=== PATIENT | male | born 1975 | race Caucasian/White ===

== ENCOUNTER 2020-08-08 20:29 | Inpatient (IN) | payer BC ==
[~2020-08-08] VITALS: Ht 175.3 cm; Wt 108.7 kg
[~2020-08-08 20:29] MED LIST: AMIO200T6 PO; ATOR40TA PO; METO25TA4 PO; NICO1PAT25 TP; RIVA20TA2 PO; TICA90TA PO
[2020-08-08 20:53] LABS: BASO # 0.1 x10^3/uL (0.0-0.2); BASO % 1 % (0-3); EOS # 0.2 x10^3/uL (0.0-0.7); EOS % 2 % (0-3); HEMOGLOBIN 15.9 g/dL (13.0-17.5); LYMPH # 2.6 x10^3/uL (1.0-4.8); LYMPH % 25 % (24-48); MEAN CORPUSCULAR HEMOGLOBIN 31 pg (25-35); MEAN CORPUSCULAR HGB CONC 35 g/dL (31-37); MEAN CORPUSCULAR VOLUME 88 fL (79-100); MONO # 0.8 x10^3/uL (0.0-1.1); MONO % 8 % (0-9); NEUT # 6.8 x10^3/uL (1.8-7.7); NEUT % 65 % (31-73); PLATELET COUNT 253 x10^3/uL (140-400); RED BLOOD COUNT 5.21 x10^6/uL (4.30-5.70); RED CELL DISTRIBUTION WIDTH 14.8 % (11.5-14.5); WHITE BLOOD COUNT 10.5 x10^3/uL (4.0-11.0)
[2020-08-08] MEDS ORDERED: ASPIRIN 325 MG TABLET PO ONE (21:00)
[2020-08-08] MEDS ORDERED: IV NORMAL SALINE 1000ML BAG 1,000 ML IV ONE (21:00)
[2020-08-08 21:01] LABS: PROTHROMBIN TIME PATIENT 26.4 SEC (11.7-14.0)
[2020-08-08 21:06] LABS: CALCIUM 9.2 mg/dL (8.5-10.1); CREATININE 1.2 mg/dL (0.7-1.3); GFR 64.9; POTASSIUM 3.7 mmol/L (3.5-5.1)
[2020-08-08 21:12] LABS: ALBUMIN 3.5 g/dL (3.4-5.0); ALBUMIN/GLOBULIN RATIO 0.9 (1.0-1.7); TOTAL BILIRUBIN 0.3 mg/dL (0.2-1.0); TOTAL PROTEIN 7.5 g/dL (6.4-8.2)
[2020-08-08 21:18] LABS: D-DIMER 1.63 ug/mlFEU (0.00-0.50)
[2020-08-08] MEDS ORDERED: IOHEXOL 350 MG/ML 100 ML VIAL. IV ONE (21:30)
[2020-08-08] MEDS ORDERED: CONTRAST GIVEN. MC PRN (21:30)
--- NOTE | 2020-08-08 21:50 | PHYS DOC ---
Past Medical History Past Medical History: CAD, High Cholesterol, Hypertension Additional Past Medical Histor: STENT, ANGIO Past Surgical History: Angioplasty Smoking Status: Current Every Day Smoker (5-6 cigarettes/day) Alcohol Use: None Drug Use: None General Adult EDM: Chief Complaint: CHEST PAIN HPI: HPI: Patient is a 45 year old white Male who presents with chest pain. He has a history of OR with angioplasty on 07/13 and stent placement on 07/17. This began today at 1900h. Chest pain is described as sharp, constant and 5/10 that occurred at rest. Patient admits to radiation of pain to right side of his chest. Location of pain is at midclavicular, 5th intercostal space. Patient has experienced intermittent shortness of breath from this episode without any clear aggravation. He went to the urgent care at 1930 and received an EKG and sent to ED. He did not take any medications at this time and denies any aggravating factors. He states he had a similar pain on night/Friday morning and was not seen as he attributed to gas. He is seen with his mother who is also his ride. Denies trauma. Denies fever/chills. Denies trauma. Review of Systems: Review of Systems: Constitutional: Denies fever or chills Eyes: Denies redness or eye pain HENT: Admits nasal congestion. Denies sore throat Respiratory: Admits shortness of breath. Denies cough Cardiovascular: Admits chest pain. Denies palpitations GI: Denies abdominal pain, nausea, or vomiting : Denies dysuria or hematuria Musculoskeletal: Denies back pain or joint pain Integument: Denies rash or skin lesions Neurologic: Denies headache, focal weakness or sensory changes Complete systems were reviewed and found to be within normal limits, except as documented in this note. Heart Score: HEART Score for Chest Pain: HEART Score for Chest Pain Response (Comments) Value History Moderately Suspicious 1 ECG Normal 0 Age >45 - < 65 1 Risk Factors >3 Risk Factors or Hx CAD 2 Troponin < Normal Limit 0 Total 4 Risk Factors: Risk Factors: Current or recent (<one month) smoker, HTN, HLP, family history of CAD, obesity. Risk Scores: Score 0 - 3: 2.5% MACE over next 6 weeks - Discharge Home Score 4 - 6: 20.3% MACE over next 6 weeks - Admit for Clinical Observation Score 7 - 10: 72.7% MACE over next 6 weeks - Early Invasive Strategies Current Medications: Current Medications Medications (Trade) Dose Ordered Sig/Delvis Start Time Stop Time Status Last Admin Dose Admin Aspirin (Corrine Aspirin) 325 mg 1X ONCE 08/08/20 21:00 08/08/20 21:01 DC 08/08/20 20:57 325 MG Info (CONTRAST GIVEN -- Rx MONITORING) 1 each PRN DAILY PRN 08/08/20 21:30 08/10/20 21:29 Iohexol (Omnipaque 350 Mg/ml) 100 ml 1X ONCE 08/08/20 21:30 08/08/20 21:31 DC Sodium Chloride 1,000 ml @ 1,000 mls/hr 1X ONCE 08/08/20 21:00 08/08/20 21:59 08/08/20 20:57 1,000 MLS/HR Allergies: Allergies: Allergies Coded Allergies Type Severity Reaction Last Updated Verified Penicillins Allergy Intermediate hives/rash/swelling 07/13/20 Yes Physical Exam: PE: Constitutional: Well developed, well nourished, no acute distress, non-toxic appearance HENT: Normocephalic, atraumatic Eyes: PERRL, EOMI, conjunctiva normal, no discharge Neck: Normal range of motion, no tenderness, supple Lungs & Thorax: No respiratory distress, equal chest rise and fall Abdomen: Soft, no tenderness Skin: Warm, dry, no erythema, no rash Back: No tenderness, no CVA tenderness Extremities: No tenderness, ROM intact, no edema Neurologic: Alert and oriented X 3, normal motor function, normal sensory function, no focal deficits noted Psychologic: Affect normal, judgment normal Current Patient Data: Labs: Laboratory Tests Test 08/08/20 20:44 White Blood Count 10.5 x10^3/uL (4.0-11.0) Red Blood Count 5.21 x10^6/uL (4.30-5.70) Hemoglobin 15.9 g/dL (13.0-17.5) Hematocrit 46.0 % (39.0-53.0) Mean Corpuscular Volume 88 fL (79-100) Mean Corpuscular Hemoglobin 31 pg (25-35) Mean Corpuscular Hemoglobin Concent 35 g/dL (31-37) Red Cell Distribution Width 14.8 % (11.5-14.5) H Platelet Count 253 x10^3/uL (140-400) Neutrophils (%) (Auto) 65 % (31-73) Lymphocytes (%) (Auto) 25 % (24-48) Monocytes (%) (Auto) 8 % (0-9) Eosinophils (%) (Auto) 2 % (0-3) Basophils (%) (Auto) 1 % (0-3) Neutrophils # (Auto) 6.8 x10^3/uL (1.8-7.7) Lymphocytes # (Auto) 2.6 x10^3/uL (1.0-4.8) Monocytes # (Auto) 0.8 x10^3/uL (0.0-1.1) Eosinophils # (Auto) 0.2 x10^3/uL (0.0-0.7) Basophils # (Auto) 0.1 x10^3/uL (0.0-0.2) Prothrombin Time 26.4 SEC (11.7-14.0) H Prothrombin Time INR 2.4 (0.8-1.1) H Activated Partial Thromboplast Time 48 SEC (24-38) H D-Dimer (Dina) 1.63 ug/mlFEU (0.00-0.50) H Sodium Level 140 mmol/L (136-145) Potassium Level 3.7 mmol/L (3.5-5.1) Chloride Level 104 mmol/L (98-107) Carbon Dioxide Level 26 mmol/L (21-32) Anion Gap 10 (6-14) Blood Urea Nitrogen 15 mg/dL (8-26) Creatinine 1.2 mg/dL (0.7-1.3) Estimated GFR (Cockcroft-Gault) 64.9 BUN/Creatinine Ratio 13 (6-20) Glucose Level 121 mg/dL (70-99) H Calcium Level 9.2 mg/dL (8.5-10.1) Magnesium Level 2.0 mg/dL (1.8-2.4) Total Bilirubin 0.3 mg/dL (0.2-1.0) Aspartate Amino Transferase (AST) 25 U/L (15-37) Alanine Aminotransferase (ALT) 54 U/L (16-63) Alkaline Phosphatase 44 U/L (46-116) L Troponin I Quantitative < 0.017 ng/mL (0.000-0.055) RB-[id number]-[id number]-Type Natriuretic Peptide 894 pg/mL (0-124) H Total Protein 7.5 g/dL (6.4-8.2) Albumin 3.5 g/dL (3.4-5.0) Albumin/Globulin Ratio 0.9 (1.0-1.7) L Lipase 64 U/L (73-393) L Laboratory Tests 08/08/20 20:44 Laboratory Tests 08/08/20 20:44 Vital Signs: Vital Signs Date Time Temp Pulse Resp B/P (MAP) Pulse Ox O2 Delivery O2 Flow Rate FiO2 08/08/20 20:40 98.4 98 149/110 (123) 97 98.4 EKG: EKG: HR 96BPM Intervals - WV 164ms, QRS 88ms, QT 348ms Interpretation: Sinus rhythm, QRS(T) contour abnormality, consistent with inferior infarct, age undetermined Radiology/Procedures: Radiology/Procedures: PROCEDURE: CT ANGIOGRAPHY CHEST Exam: CT of chest with contrast INDICATION: Chest pain TECHNIQUE: Sequential axial images through the chest obtained following the administration of 100 mL of Omni 350 IV contrast. Sagittal and coronal reformatted images were reconstructed from the axial data and reviewed. 3-D reformatted images were reconstructed from the axial data and reviewed. Comparisons: None FINDINGS: Visualized portions of the thyroid are unremarkable. No enlarged mediastinal lymph nodes are identified. Heart size is normal. No pericardial effusion. Thoracic aorta has a normal course and caliber. Pulmonary artery is not enlarged. No pulmonary embolus identified within the main, lobar or segmental pulmonary arteries. Airways are patent. No consolidation or pneumothorax. No suspicious lung nodules. No pleural or thickening. No suspicious osseous lesions or acute fractures. IMPRESSION: No pulmonary embolus identified within the main, lobar or segmental pulmonary arteries. Exposure: One or more of the following in the visualized dose reduction techniques were utilized for this examination: 1. Automated exposure control 2. Adjustment of the MA and/or KV according to patient size 3. Use of iterative of reconstructive technique Electronically signed by: Yamile Ocasio MD (08/08/2020 10:36 PM) [facility] Course & Med Decision Making: Course & Med Decision Making Mr. Weller is a 45yo white male who presents with chest pain. Pain began at 1900. Patient describes pain as sharp, constant and 5/10. Pain is located on left chest with radiation into his right chest. He went to urgent care who sent him to the ED. He did not take any medications and complains of SOB that is i ntermittent. Physical exam was unremarkable. EKG was unremarkable. Labs did not show any elevation in initial troponin. CT angiography did not find any evidence of pulmonary emoblus. Patient was treated with ondansetron, fluids, fentanyl and aspirin. Vitals are stable. HEART score 4. Patient requiring admission for further evaluation and treatment. Discussed with Dr. Roberson (hospitalist) who is in agreement with admission. Discussed findings and plan with patient, who acknowledges understanding and agreement. David Disclaimer: David Disclaimer: This electronic medical record was generated, in whole or in part, using a voice recognition dictation system. Departure Departure Impression: Primary Impression: Chest pain Qualified Codes: R07.9 - Chest pain, unspecified Disposition: ADMITTED INPT THIS HOSP Admitting Physician: SANFORD (Da) Condition: STABLE Referrals: LADY FERNANDES (PCP) LAURA LOMELI DO Aug 08, 2020 21:50
[2020-08-08 22:32] LABS: BILIRUBIN,URINE NEGATIVE (NEG); CLARITY,URINE CLEAR; COLOR,URINE YELLOW; NITRITE,URINE NEGATIVE (NEG); PROTEIN,URINE NEGATIVE (NEG-TRACE)
[2020-08-08 22:38] LABS: BACTERIA,URINE 0 /HPF (0-FEW); RBC,URINE 0 /HPF (0-2); WBC,URINE 0 /HPF (0-4)
--- NOTE | 2020-08-08 22:39 | RAD ---
Exam: CT of chest with contrast INDICATION: Chest pain TECHNIQUE: Sequential axial images through the chest obtained following the administration of 100 mL of Omni 350 IV contrast. Sagittal and coronal reformatted images were reconstructed from the axial data and reviewed. 3-D reformatted images were reconstructed from the axial data and reviewed. Comparisons: None FINDINGS: Visualized portions of the thyroid are unremarkable. No enlarged mediastinal lymph nodes are identified. Heart size is normal. No pericardial effusion. Thoracic aorta has a normal course and caliber. Pulmonary artery is not enlarged. No pulmonary embolus identified within the main, lobar or segmental pulmonary arteries. Airways are patent. No consolidation or pneumothorax. No suspicious lung nodules. No pleural or thickening. No suspicious osseous lesions or acute fractures. IMPRESSION: No pulmonary embolus identified within the main, lobar or segmental pulmonary arteries. Exposure: One or more of the following in the visualized dose reduction techniques were utilized for this examination: 1. Automated exposure control 2. Adjustment of the MA and/or KV according to patient size 3. Use of iterative of reconstructive technique Electronically signed by: Yamile Ocasio MD (08/08/2020 10:36 PM) [facility]
[2020-08-08 22:40] LABS: BARBITURATES NEG (NEG); BENZODIAZEPINES NEG (NEG); CANNABINOIDS NEG (NEG); COCAINE NEG (NEG); METHADONE NEG (NEG); OPIATES NEG (NEG); PHENCYCLIDINE NEG (NEG)
[2020-08-08 22:41] LABS: AMPHETAMINE/METHAMPHETAMINE NEG (NEG)
[2020-08-08] MEDS ORDERED: ONDANSETRON PF 4 MG/2 ML VIAL. IV PRN (22:45)
[2020-08-08] MEDS ORDERED: fentaNYL PF VIAL 100 MCG/2 ML VIAL IV PRN (22:45)
[2020-08-09 04:31] LABS: CHOLESTEROL/HDL RATIO 6.8
[2020-08-09 08:08] VITALS: BP 135/92
--- NOTE | 2020-08-09 08:33 | PDOC1 ---
History and Physical Date of Service: DOS: DATE: 08/09/20 TIME: 08:30 Chief Complaint: Chief Complain: chest pain History of Present Illness: HPI: 45 year old white Male who presents with chest pain. He has a history of OR with angioplasty on 07/13 and stent placement on 07/17. This began today at 1900h. Chest pain is described as sharp, constant and 5/10 that occurred at rest. Patient admits to radiation of pain to right side of his chest. Location of pain is at midclavicular, 5th intercostal space. Patient has experienced intermittent shortness of breath from this episode without any clear aggravation. He went to the urgent care at 1930 and received an EKG and sent to ED. He did not take any medications at this time and denies any aggravating factors. He states he had a similar pain on night/Friday morning and was not seen as he attributed to gas. He is seen with his mother who is also his ride. Denies trauma. Denies fever/chills. Denies trauma. Past Medical/Surgical History: PMH/PSH: Past Medical History: CAD, High Cholesterol, Hypertension, STENT, ANGIO Past Surgical History: Angioplasty Allergies: Allergies: Coded Allergies: Penicillins (Verified Allergy, Intermediate, hives/rash/swelling, 07/13/20) Family History: Family History: Reviewed and none reported Social History: Social History: Smoking Status: Current Every Day Smoker (5-6 cigarettes/day) Alcohol Use: None Drug Use: None Current Medications: Current Medications Current Medications Aspirin (Corrine Aspirin) 325 mg 1X ONCE PO Last administered on 08/08/20at 20:57; Start 08/08/20 at 21:00; Stop 08/08/20 at 21:01; Status DC Sodium Chloride 1,000 ml @ 1,000 mls/hr 1X ONCE IV Last administered on 08/08/20at 20:57; Start 08/08/20 at 21:00; Stop 08/08/20 at 21:59; Status DC Iohexol (Omnipaque 350 Mg/ml) 100 ml 1X ONCE IV Last administered on 08/08/20at 21:30; Start 08/08/20 at 21:30; Stop 08/08/20 at 21:31; Status DC Info (CONTRAST GIVEN -- Rx MONITORING) 1 each PRN DAILY PRN MC SEE COMMENTS; Start 08/08/20 at 21:30; Stop 08/10/20 at 21:29 Ondansetron HCl (Zofran) 4 mg PRN Q8HRS PRN IV NAUSEA/VOMITING; Start 08/08/20 at 22:45; Stop 08/09/20 at 22:44 Fentanyl Citrate (Fentanyl 2ml Vial) 50 mcg PRN Q2HR PRN IV PAIN; Start 08/08/20 at 22:45 Active Scripts Active Reported NICODERM CQ 14mg (Nicotine) 1 Each Patch.td24 1 Patch TP DAILY Metoprolol Tartrate 25 Mg Tablet 1 Tab PO BID Amiodarone Hcl 200 Mg Tablet 200 Mg PO DAILY Lipitor (Atorvastatin Calcium) 40 Mg Tablet 1 Tab PO QHS Brilinta (Ticagrelor) 90 Mg Tablet 90 Mg PO BID Xarelto (Rivaroxaban) 20 Mg Tablet 1 Tab PO DAILY 30 Days with food ROS: Review of Systems Review of System REVIEW OF SYSTEMS: GENERAL: Denies weakness SKIN: No bruising, hair changes or rashes. EYES: No blurred, double or loss of vision. NOSE AND THROAT: No history of nosebleeds, hoarseness or sore throat. HEART: No history of palpitations, chest pain or shortness of breath on exertion. LUNGS: Denies cough, hemoptysis, wheezing or shortness of breath. GASTROINTESTINAL: Denies changes in appetite, nausea, vomiting, diarrhea or constipation. GENITOURINARY: No history of frequency, urgency, hesitancy or nocturia. NEUROLOGIC: Denies history of numbness, tingling, or tremor. PSYCHIATRIC: No history of panic, anxiety or depression. ENDOCRINE: No history of heat or cold intolerance, polyuria or polydipsia. EXTREMITIES: Denies joint pain, pain on walking or stiffness. Physical Exam: Vital Signs: Vital Signs Date Time Temp Pulse Resp B/P (MAP) Pulse Ox O2 Delivery O2 Flow Rate FiO2 08/09/20 08:08 85 18 135/92 (106) 98 Room Air 08/08/20 20:40 98.4 98.4 Physcial Exam: GEN: No apparent distress. Alert and oriented HEENT: Normal cephalic, atraumatic, external auditory canals are patent EYES: Extraocular muscles are intact, pupil are equally round and reactive to light and accommodation MUSCULOSKELETAL: Well developed , well nourished, good range of motion ENDOCRINE: No thyromegaly was palpated LYMPHATICS: No cervical chain or axillary nodes were noted HEMATOPOIETIC: No bruising NECK: Supple, no JVD, no thyromegaly was noted LUNGS: Clear to auscultation in all lung wood without rhonchi or wheezing HEART: RRR, S!, S2 present. Peripheral pulses intact, no obvious murmurs noted ABDOMEN: Soft, nontender. Positive bowel sounds, no organomegaly, normal bowel sounds EXTREMITIES: Without clubbing, cyanosis, or edema. Pedal pulses intact. Negative Homans sign NEUROLOGIC: Normal speech and tone. A&O x 3, moves all extremities, no obvious focal deficits PSYCHIATRIC: Normal affect, normal mood. Stable SKIN: No ulcerations or rashes, good skin turgor, no jaundice VASCULAR: Good capillary refill, neurovascular bundle appears to be intact Labs: Labs: Laboratory Tests Test 08/08/20 20:44 08/08/20 22:21 White Blood Count 10.5 x10^3/uL (4.0-11.0) Red Blood Count 5.21 x10^6/uL (4.30-5.70) Hemoglobin 15.9 g/dL (13.0-17.5) Hematocrit 46.0 % (39.0-53.0) Mean Corpuscular Volume 88 fL (79-100) Mean Corpuscular Hemoglobin 31 pg (25-35) Mean Corpuscular Hemoglobin Concent 35 g/dL (31-37) Red Cell Distribution Width 14.8 % (11.5-14.5) Platelet Count 253 x10^3/uL (140-400) Neutrophils (%) (Auto) 65 % (31-73) Lymphocytes (%) (Auto) 25 % (24-48) Monocytes (%) (Auto) 8 % (0-9) Eosinophils (%) (Auto) 2 % (0-3) Basophils (%) (Auto) 1 % (0-3) Neutrophils # (Auto) 6.8 x10^3/uL (1.8-7.7) Lymphocytes # (Auto) 2.6 x10^3/uL (1.0-4.8) Monocytes # (Auto) 0.8 x10^3/uL (0.0-1.1) Eosinophils # (Auto) 0.2 x10^3/uL (0.0-0.7) Basophils # (Auto) 0.1 x10^3/uL (0.0-0.2) Prothrombin Time 26.4 SEC (11.7-14.0) Prothromb Time International Ratio 2.4 (0.8-1.1) Activated Partial Thromboplast Time 48 SEC (24-38) D-Dimer (Dina) 1.63 ug/mlFEU (0.00-0.50) Sodium Level 140 mmol/L (136-145) Potassium Level 3.7 mmol/L (3.5-5.1) Chloride Level 104 mmol/L (98-107) Carbon Dioxide Level 26 mmol/L (21-32) Anion Gap 10 (6-14) Blood Urea Nitrogen 15 mg/dL (8-26) Creatinine 1.2 mg/dL (0.7-1.3) Estimated GFR (Cockcroft-Gault) 64.9 BUN/Creatinine Ratio 13 (6-20) Glucose Level 121 mg/dL (70-99) Calcium Level 9.2 mg/dL (8.5-10.1) Magnesium Level 2.0 mg/dL (1.8-2.4) Total Bilirubin 0.3 mg/dL (0.2-1.0) Aspartate Amino Transf (AST/SGOT) 25 U/L (15-37) Alanine Aminotransferase (ALT/SGPT) 54 U/L (16-63) Alkaline Phosphatase 44 U/L (46-116) Troponin I Quantitative < 0.017 ng/mL (0.000-0.055) BV-Jss-S-Type Natriuretic Peptide 894 pg/mL (0-124) Total Protein 7.5 g/dL (6.4-8.2) Albumin 3.5 g/dL (3.4-5.0) Albumin/Globulin Ratio 0.9 (1.0-1.7) Triglycerides Level 230 mg/dL (0-150) Cholesterol Level 162 mg/dL (0-200) LDL Cholesterol, Calculated 92 mg/dL (0-100) VLDL Cholesterol, Calculated 46 mg/dL (0-40) Non-HDL Cholesterol Calculated 138 mg/dL (0-129) HDL Cholesterol 24 mg/dL (40-60) Cholesterol/HDL Ratio 6.8 Lipase 64 U/L (73-393) Urine Collection Type Unknown Urine Color Yellow Urine Clarity Clear Urine pH 7.0 (<5.0-8.0) Urine Specific [place] 1.020 (1.000-1.030) Urine Protein Negative mg/dL (NEG-TRACE) Urine Glucose (UA) Negative mg/dL (NEG) Urine Ketones (Stick) Negative mg/dL (NEG) Urine Blood Negative (NEG) Urine Nitrite Negative (NEG) Urine Bilirubin Negative (NEG) Urine Urobilinogen Dipstick 1.0 mg/dL (0.2 mg/dL) Urine Leukocyte Esterase Negative (NEG) Urine RBC 0 /HPF (0-2) Urine WBC 0 /HPF (0-4) Urine Bacteria 0 /HPF (0-FEW) Urine Mucus Slight /LPF Urine Opiates Screen Neg (NEG) Urine Methadone Screen Neg (NEG) Urine Barbiturates Neg (NEG) Urine Phencyclidine Screen Neg (NEG) Urine Amphetamine/Methamphetamine Neg (NEG) Urine Benzodiazepines Screen Neg (NEG) Urine Cocaine Screen Neg (NEG) Urine Cannabinoids Screen Neg (NEG) Urine Ethyl Alcohol Neg (NEG) Laboratory Tests Test 08/08/20 20:44 08/08/20 22:21 White Blood Count 10.5 x10^3/uL (4.0-11.0) Red Blood Count 5.21 x10^6/uL (4.30-5.70) Hemoglobin 15.9 g/dL (13.0-17.5) Hematocrit 46.0 % (39.0-53.0) Mean Corpuscular Volume 88 fL (79-100) Mean Corpuscular Hemoglobin 31 pg (25-35) Mean Corpuscular Hemoglobin Concent 35 g/dL (31-37) Red Cell Distribution Width 14.8 % (11.5-14.5) Platelet Count 253 x10^3/uL (140-400) Neutrophils (%) (Auto) 65 % (31-73) Lymphocytes (%) (Auto) 25 % (24-48) Monocytes (%) (Auto) 8 % (0-9) Eosinophils (%) (Auto) 2 % (0-3) Basophils (%) (Auto) 1 % (0-3) Neutrophils # (Auto) 6.8 x10^3/uL (1.8-7.7) Lymphocytes # (Auto) 2.6 x10^3/uL (1.0-4.8) Monocytes # (Auto) 0.8 x10^3/uL (0.0-1.1) Eosinophils # (Auto) 0.2 x10^3/uL (0.0-0.7) Basophils # (Auto) 0.1 x10^3/uL (0.0-0.2) Prothrombin Time 26.4 SEC (11.7-14.0) Prothromb Time International Ratio 2.4 (0.8-1.1) Activated Partial Thromboplast Time 48 SEC (24-38) D-Dimer (Dina) 1.63 ug/mlFEU (0.00-0.50) Sodium Level 140 mmol/L (136-145) Potassium Level 3.7 mmol/L (3.5-5.1) Chloride Level 104 mmol/L (98-107) Carbon Dioxide Level 26 mmol/L (21-32) Anion Gap 10 (6-14) Blood Urea Nitrogen 15 mg/dL (8-26) Creatinine 1.2 mg/dL (0.7-1.3) Estimated GFR (Cockcroft-Gault) 64.9 BUN/Creatinine Ratio 13 (6-20) Glucose Level 121 mg/dL (70-99) Calcium Level 9.2 mg/dL (8.5-10.1) Magnesium Level 2.0 mg/dL (1.8-2.4) Total Bilirubin 0.3 mg/dL (0.2-1.0) Aspartate Amino Transf (AST/SGOT) 25 U/L (15-37) Alanine Aminotransferase (ALT/SGPT) 54 U/L (16-63) Alkaline Phosphatase 44 U/L (46-116) Troponin I Quantitative < 0.017 ng/mL (0.000-0.055) UU-[id number]-P-Type Natriuretic Peptide 894 pg/mL (0-124) Total Protein 7.5 g/dL (6.4-8.2) Albumin 3.5 g/dL (3.4-5.0) Albumin/Globulin Ratio 0.9 (1.0-1.7) Triglycerides Level 230 mg/dL (0-150) Cholesterol Level 162 mg/dL (0-200) LDL Cholesterol, Calculated 92 mg/dL (0-100) VLDL Cholesterol, Calculated 46 mg/dL (0-40) Non-HDL Cholesterol Calculated 138 mg/dL (0-129) HDL Cholesterol 24 mg/dL (40-60) Cholesterol/HDL Ratio 6.8 Lipase 64 U/L (73-393) Urine Collection Type Unknown Urine Color Yellow Urine Clarity Clear Urine pH 7.0 (<5.0-8.0) Urine Specific [place] 1.020 (1.000-1.030) Urine Protein Negative mg/dL (NEG-TRACE) Urine Glucose (UA) Negative mg/dL (NEG) Urine Ketones (Stick) Negative mg/dL (NEG) Urine Blood Negative (NEG) Urine Nitrite Negative (NEG) Urine Bilirubin Negative (NEG) Urine Urobilinogen Dipstick 1.0 mg/dL (0.2 mg/dL) Urine Leukocyte Esterase Negative (NEG) Urine RBC 0 /HPF (0-2) Urine WBC 0 /HPF (0-4) Urine Bacteria 0 /HPF (0-FEW) Urine Mucus Slight /LPF Urine Opiates Screen Neg (NEG) Urine Methadone Screen Neg (NEG) Urine Barbiturates Neg (NEG) Urine Phencyclidine Screen Neg (NEG) Urine Amphetamine/Methamphetamine Neg (NEG) Urine Benzodiazepines Screen Neg (NEG) Urine Cocaine Screen Neg (NEG) Urine Cannabinoids Screen Neg (NEG) Urine Ethyl Alcohol Neg (NEG) Images: Images CHEST CTA IMPRESSION: No pulmonary embolus identified within the main, lobar or segmental pulmonary arteries. Assessment/Plan Assessment/Plan 45yo white male who presents with chest pain. Pain began at 1900. Patient describes pain as sharp, constant and 5/10. Pain is located on left chest with radiation into his right chest. He went to urgent care who sent him to the ED. He did not take any medications and complains of SOB that is intermittent. Physical exam was unremarkable. EKG was unremarkable. Labs did not show any elevation in initial troponin. CT angiography did not find any evidence of pulmonary emoblus. Patient was treated with ondansetron, fluids, fentanyl and aspirin. Vitals are stable. acute respiratory distress and Chest pain concerning for unstable angina/NSTEMI HEART score 4 Elevated D-dimer Suspect COVID infection Admit to medicine for further management EKG unremarkable Troponin negative Continue Brilinta and Xarelto Cardiology consulted for predischarge stress testing or left heart cath Continue nitroglycerin as needed for pain Continue beta-lyndsey if blood pressures allow Continue high intensity statins IV morphine as needed Consider Lovenox Maintain O2 sats between 88 to 95% Trend troponins Repeat EKG in the a.m. Continue telemetry monitoring Monitor for electrolyte abnormalities Avoid NSAIDs Lovenox for DVT prophylaxis ADA diet Full code Discussed with RN and SW Disposition pending cardiac evaluation Surrogate decision maker is Smoking cessation: Total time spent was > 12 minutes in face to face counseling. Patient has agreed to consider nicotine patches/gum or to start on Varnicline when discharged Justifications for Admission Other Justification PRISCILA PENALOZA MD Aug 09, 2020 08:33
--- NOTE | 2020-08-09 09:27 | PDOC2 ---
STEVEN ROMERO [employer] FAB[employer]ICATION 08/09/20 0927: CARDIAC CONSULT DATE OF CONSULT Date of Consult DATE: 08/09/20 TIME: 09:22 REASON FOR CONSULT Reason for Consult: Chest pain REFERRING PHYSICIAN Referring Physician: Bhupendra SOURCE Source: Caregiver (), Chart review, Patient HISTORY OF PRESENT ILLNESS HISTORY OF PRESENT ILLNESS This is a pleasant 45 yo male admitted for complains of chest pain. Reports of chest pressure but more so in the epigastric region which seems to be reproducible to palpation. This is nonradiating and started yesterday. He actually went [facility] and was told to go to ED. This is not the same discomfort as when he had his STEMI with thrombectomy and PCI. He has been SOA since getting discharge from his last visit but no significant increase. No nausea or vomiting. No fever or chills and no cough or heartburn. He did note that while he was at urgent care his O2 sat drops in the 80s at times also at home. No palpitations or frequent dizziness. Denies any PND, or orthopnea. Denies any exposure from Covid-19 PAST MEDICAL HISTORY Cardiovascular: CAD, CHF, HTN, NV, Hyperlipidemia, Other (Vfib with PCI) Pulmonary: No pertinent hx CENTRAL NERVOUS SYSTEM: Other (No pertinent history) GI: GERD Heme/Onc: No pertinent hx Hepatobiliary: No pertinent hx Psych: No pertinent hx Musculoskeletal: Osteoarthritis Rheumatologic: No pertinent hx Infectious disease: No pertinent hx ENT: No pertinent hx Renal/: No pertinent hx PAST SURGICAL HISTORY Past Surgical History: Tonsillectomy, Other (PCI) FAMILY HISTORY Family History: Hypertension SOCIAL HISTORY Smoke: No ALCOHOL: none Drugs: None Lives: with Family CURRENT MEDICATIONS CURRENT MEDICATIONS Current Medications Medications (Trade) Dose Ordered Sig/Delvis Route PRN Reason Start Time Stop Time Status Last Admin Dose Admin Aspirin (Corrine Aspirin) 325 mg 1X ONCE PO 08/08/20 21:00 08/08/20 21:01 DC 08/08/20 20:57 Sodium Chloride 1,000 ml @ 1,000 mls/hr 1X ONCE IV 08/08/20 21:00 08/08/20 21:59 DC 08/08/20 20:57 Iohexol (Omnipaque 350 Mg/ml) 100 ml 1X ONCE IV 08/08/20 21:30 08/08/20 21:31 DC 08/08/20 21:30 ALLERGIES ALLERGIES: Coded Allergies: Penicillins (Verified Allergy, Intermediate, hives/rash/swelling, 07/13/20) ROS Review of System 14 point ROS evaluated with pertinent positives noted per HPI PHYSICAL EXAM General: Alert, Oriented X3, Cooperative, No acute distress HEENT: Atraumatic, Mucous membr. moist/pink Lungs: Clear to auscultation, Normal air movement Heart: Regular rate (SR), Normal S1, Normal S2, No murmurs Abdomen: Soft, No tenderness Extremities: No cyanosis, No edema Skin: No breakdown, No significant lesion Neuro: Normal speech, Sensation intact Psych/Mental Status: Mental status NL, Mood NL MUSCULOSKELETAL: Osteoarthritic changes both hands VITALS/I&O VITALS/I&O: Vital Signs Date Time Temp Pulse Resp B/P (MAP) Pulse Ox O2 Delivery O2 Flow Rate FiO2 08/09/20 08:08 85 18 135/92 (106) 98 Room Air 08/08/20 20:40 98.4 98.4 I & O 08/08/20 08/08/20 08/09/20 15:00 23:00 07:00 Intake Total 1000 ml Balance 1000 ml LABS Lab: Laboratory Tests Test 08/08/20 20:44 08/08/20 22:21 White Blood Count 10.5 x10^3/uL (4.0-11.0) Red Blood Count 5.21 x10^6/uL (4.30-5.70) Hemoglobin 15.9 g/dL (13.0-17.5) Hematocrit 46.0 % (39.0-53.0) Mean Corpuscular Volume 88 fL (79-100) Mean Corpuscular Hemoglobin 31 pg (25-35) Mean Corpuscular Hemoglobin Concent 35 g/dL (31-37) Red Cell Distribution Width 14.8 % (11.5-14.5) H Platelet Count 253 x10^3/uL (140-400) Neutrophils (%) (Auto) 65 % (31-73) Lymphocytes (%) (Auto) 25 % (24-48) Monocytes (%) (Auto) 8 % (0-9) Eosinophils (%) (Auto) 2 % (0-3) Basophils (%) (Auto) 1 % (0-3) Neutrophils # (Auto) 6.8 x10^3/uL (1.8-7.7) Lymphocytes # (Auto) 2.6 x10^3/uL (1.0-4.8) Monocytes # (Auto) 0.8 x10^3/uL (0.0-1.1) Eosinophils # (Auto) 0.2 x10^3/uL (0.0-0.7) Basophils # (Auto) 0.1 x10^3/uL (0.0-0.2) Prothrombin Time 26.4 SEC (11.7-14.0) H Prothrombin Time INR 2.4 (0.8-1.1) H Activated Partial Thromboplast Time 48 SEC (24-38) H D-Dimer (Dina) 1.63 ug/mlFEU (0.00-0.50) H Sodium Level 140 mmol/L (136-145) Potassium Level 3.7 mmol/L (3.5-5.1) Chloride Level 104 mmol/L (98-107) Carbon Dioxide Level 26 mmol/L (21-32) Anion Gap 10 (6-14) Blood Urea Nitrogen 15 mg/dL (8-26) Creatinine 1.2 mg/dL (0.7-1.3) Estimated GFR (Cockcroft-Gault) 64.9 BUN/Creatinine Ratio 13 (6-20) Glucose Level 121 mg/dL (70-99) H Calcium Level 9.2 mg/dL (8.5-10.1) Magnesium Level 2.0 mg/dL (1.8-2.4) Total Bilirubin 0.3 mg/dL (0.2-1.0) Aspartate Amino Transferase (AST) 25 U/L (15-37) Alanine Aminotransferase (ALT) 54 U/L (16-63) Alkaline Phosphatase 44 U/L (46-116) L Troponin I Quantitative < 0.017 ng/mL (0.000-0.055) YK-Ghe-D-Type Natriuretic Peptide 894 pg/mL (0-124) H Total Protein 7.5 g/dL (6.4-8.2) Albumin 3.5 g/dL (3.4-5.0) Albumin/Globulin Ratio 0.9 (1.0-1.7) L Triglycerides Level 230 mg/dL (0-150) H Cholesterol Level 162 mg/dL (0-200) LDL Cholesterol, Calculated 92 mg/dL (0-100) VLDL Cholesterol, Calculated 46 mg/dL (0-40) H Non-HDL Cholesterol Calculated 138 mg/dL (0-129) H HDL Cholesterol 24 mg/dL (40-60) L Cholesterol/HDL Ratio 6.8 Lipase 64 U/L (73-393) L Urine Collection Type Unknown Urine Color Yellow Urine Clarity Clear Urine pH 7.0 (<5.0-8.0) Urine Specific [place] 1.020 (1.000-1.030) Urine Protein Negative mg/dL (NEG-TRACE) Urine Glucose (UA) Negative mg/dL (NEG) Urine Ketones (Stick) Negative mg/dL (NEG) Urine Blood Negative (NEG) Urine Nitrite Negative (NEG) Urine Bilirubin Negative (NEG) Urine Urobilinogen Dipstick 1.0 mg/dL (0.2 mg/dL) Urine Leukocyte Esterase Negative (NEG) Urine RBC 0 /HPF (0-2) Urine WBC 0 /HPF (0-4) Urine Bacteria 0 /HPF (0-FEW) Urine Mucus Slight /LPF Urine Opiates Screen Neg (NEG) Urine Methadone Screen Neg (NEG) Urine Barbiturates Neg (NEG) Urine Phencyclidine Screen Neg (NEG) Urine Amphetamine/Methamphetamine Neg (NEG) Urine Benzodiazepines Screen Neg (NEG) Urine Cocaine Screen Neg (NEG) Urine Cannabinoids Screen Neg (NEG) Urine Ethyl Alcohol Neg (NEG) Laboratory Tests 08/08/20 20:44 Laboratory Tests 08/08/20 20:44 HEART CATH HEART CATH Conclusion 1. Acute inferior STEMI 2. Acute on chronic diastolic heart failure with an LVEDP of 20 mmHg 3. Three-vessel coronary disease with acute culprit due to distal RCA heavy thrombotic occlusion 4. Partially successful thrombectomy, thrombolysis and balloon angioplasty of the distal RCA, RPDA and RPL vessels. 5. Persistent thrombus in the distal RCA Recommendations 1. Plan for continued heparin and tirofiban infusions with initiation of ticagrelor 2. Continue aspirin 81 mg daily 3. High-dose statin therapy 4. Plan for repeat evaluation in 48 to 72 hours depending on symptoms for consideration of stenting. DATE: 07/13/20 1324 ASSESSMENT/PLAN ASSESSMENT/PLAN 1. Chest pain trops nml, no EKG changes No PE per CTA, possibly GI 2. Recent large inferior STEMI with high thrombus burden in the RCA region with eventual HAYLEE and plain old balloon angioplasty of the ostium of the RPL and RPDA branches and treated with xarelto and brilinta 3. Dyspnea: CTA negative for PE 4. HTN: controlled 5. HLP: not on goal 6. Coagulopathy: INR 2.4 7. Obesity 8. Elevated DDIMER 9. Xarelto use 10. Chronic diastolic CHF 11. Hx of Vfib during attempted PCI: hence event monitor is in place due to be return on 08/16/2020 12. Obesity Recommendations 1. Does have features of GIUSEPPE and will likely need outpt w/u. This does not explain his dyspnea unless he is significantly deconditioned. So far no remarkable anomalies via CT chest. Also part of the differential is covid-19 and will test for it. Will obtain limited TTE and note EF if he is negative. 2. Continue brilinta, could hold xarelto if INR remains elevated 3. Continue secondary prevention measures 4. Pt has not been able to get started on cardiac rehab due to pushback from health insurance. Will follow up on this outpt. MIKA SALINAS MD 08/09/20 1748: CARDIAC CONSULT ASSESSMENT/PLAN ASSESSMENT/PLAN The patient was seen and interviewed as well as examined at the bedside. The chart was reviewed. The case was discussed. Agree with the plan of care. STEVEN ROMERO APRN Aug 09, 2020 09:27 MIKA SALINAS MD Aug 09, 2020 17:48
[2020-08-09 11:00] VITALS: BP 104/68
--- NOTE | 2020-08-09 11:57 | NUR ---
Pt admitted to room 260. Report called to CHRISTIANO Hong. Pt transported via wheelchair. All belongings with patient at the time of transfer. Pt mother present during transfer.
[2020-08-09 12:00] VITALS: BP 137/101
[2020-08-09] MEDS ORDERED: CLIN300C8 PO (12:21)
--- NOTE | 2020-08-09 12:26 | EKG ---
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
[2020-08-09] MEDS: NICOTINE 14MG PATCH. TD SCH (14:42)
[2020-08-09 14:55] VITALS: BP_SYST 137; BP_SYST 138; BP_DIAS 101; BP_DIAS 78
[2020-08-09] MEDS ORDERED: DOCUSATE SODIUM 100 MG CAPSULE. PO PRN (15:00)
[2020-08-09] MEDS ORDERED: POTASSIUM CHLORIDE 10MEQ 100 ML IV SCH (15:00)
[2020-08-09] MEDS ORDERED: POTASSIUM CHLORIDE 20 MEQ TABLET.ER. PO PRN (15:00)
[2020-08-09] MEDS ORDERED: SENNOSIDES 8.6 MG TABLET PO PRN (15:00)
[2020-08-09] MEDS ORDERED: ONDANSETRON PF 4 MG/2 ML VIAL. IVP PRN (15:00)
[2020-08-09] MEDS ORDERED: MAGNESIUM SULFATE 2GM 50 ML IV SCH (15:00)
[2020-08-09] MEDS ORDERED: POTASSIUM CHLORIDE 10MEQ 100 ML IV PRN (15:00)
[2020-08-09] MEDS ORDERED: DEXTROSE 50% 25 GM / 50ML DISP.SYRIN. IV PRN (15:00)
[2020-08-09] MEDS: CLINDAMYCIN HCL 150 MG CAPSULE. PO SCH ×2 (15:37→20:53)
[2020-08-09] MEDS: AMIODARONE HCL 200 MG TABLET. PO SCH (15:40)
[2020-08-09] MEDS ORDERED: ENOXAPARIN 40 MG/0.4 ML SYRINGE. SQ SCH (16:00)
[2020-08-09 16:17] LABS: PROTHROMBIN TIME PATIENT 14.5 SEC (11.7-14.0)
[2020-08-09] MEDS: RIVAROXABAN 10 MG TABLET. PO SCH (17:39)
[2020-08-09 19:58] VITALS: BP 123/94
[2020-08-09] MEDS: TICAGRELOR 90 MG TABLET. PO SCH (20:53)
[2020-08-09] MEDS: METOPROLOL TART IMMED RELEASE 25 MG TABLET. PO SCH (20:53)
[2020-08-09] MEDS ORDERED: ATORVASTATIN CALCIUM 40 MG TABLET. PO SCH (21:00)
[2020-08-09] MEDS ORDERED: MAGNESIUM OXIDE 400 MG TABLET PO PRN (21:00)
[2020-08-09 23:40] VITALS: BP 116/87
[2020-08-10 03:39] VITALS: BP 123/97
[2020-08-10 06:11] LABS: BASO # 0.1 x10^3/uL (0.0-0.2); BASO % 1 % (0-3); EOS # 0.2 x10^3/uL (0.0-0.7); EOS % 2 % (0-3); HEMATOCRIT 42.5 % (39.0-53.0); HEMOGLOBIN 14.4 g/dL (13.0-17.5); LYMPH # 2.9 x10^3/uL (1.0-4.8); LYMPH % 30 % (24-48); MEAN CORPUSCULAR HEMOGLOBIN 30 pg (25-35); MEAN CORPUSCULAR HGB CONC 34 g/dL (31-37); MEAN CORPUSCULAR VOLUME 88 fL (79-100); MONO # 0.6 x10^3/uL (0.0-1.1); MONO % 6 % (0-9); NEUT # 5.8 x10^3/uL (1.8-7.7); NEUT % 61 % (31-73); PLATELET COUNT 235 x10^3/uL (140-400); RED BLOOD COUNT 4.83 x10^6/uL (4.30-5.70); RED CELL DISTRIBUTION WIDTH 14.5 % (11.5-14.5); WHITE BLOOD COUNT 9.6 x10^3/uL (4.0-11.0)
[2020-08-10 06:25] LABS: CALCIUM 8.5 mg/dL (8.5-10.1); CREATININE 0.9 mg/dL (0.7-1.3); GFR 90.4; MAGNESIUM 2.2 mg/dL (1.8-2.4); PHOSPHORUS 3.4 mg/dL (2.6-4.7); POTASSIUM 3.9 mmol/L (3.5-5.1)
[2020-08-10 07:05] VITALS: BP 132/94
[2020-08-10] MEDS ORDERED: AMIODARONE HCL 200 MG TABLET. PO SCH (09:00)
[2020-08-10 11:05] VITALS: BP 118/85
[2020-08-10] MEDS: NICOTINE 14MG PATCH. TD SCH (11:36)
[2020-08-10] MEDS: CLINDAMYCIN HCL 150 MG CAPSULE. PO SCH ×2 (11:36→15:15)
[2020-08-10] MEDS: TICAGRELOR 90 MG TABLET. PO SCH (11:37)
[2020-08-10] MEDS: AMIODARONE HCL 200 MG TABLET. PO SCH (11:37)
[2020-08-10] MEDS: METOPROLOL TART IMMED RELEASE 25 MG TABLET. PO SCH (11:37)
--- NOTE | 2020-08-10 12:16 | PDOC ---
[facility] PROGRESS NOTE Date of Service DOS: DATE: 08/10/20 TIME: 12:13 Chief Complaint Chief Complaint 45yo white male who presents with chest pain. Pain began at 1900. Patient describes pain as sharp, constant and 5/10. Pain is located on left chest with radiation into his right chest. He went to urgent care who sent him to the ED. He did not take any medications and complains of SOB that is intermittent. Physical exam was unremarkable. EKG was unremarkable. Labs did not show any elevation in initial troponin. CT angiography did not find any evidence of pulmonary emoblus. Patient was treated with ondansetron, fluids, fentanyl and aspirin. Vitals are stable. acute respiratory distress and Chest pain concerning for unstable angina/NSTEMI HEART score 4 Elevated D-dimer Suspect COVID infection Admit to medicine for further management EKG unremarkable Troponin negative Continue Brilinta and Xarelto. Appreciate cardiology recommendations - 1. Does have features of GIUSEPPE and will likely need outpt w/u. This does not explain his dyspnea unless he is significantly deconditioned. So far no remarkable anomalies via CT chest. Also part of the differential is covid-19 and will test for it. Will obtain limited TTE and note EF if he is negative. 2. Continue brilinta, could hold xarelto if INR remains elevated 3. Continue secondary prevention measures 4. Pt has not been able to get started on cardiac rehab due to pushback from health insurance. Will follow up on this outpt. Continue nitroglycerin as needed for pain Continue beta-lyndsey if blood pressures allow Continue high intensity statins IV morphine as needed Consider Lovenox Maintain O2 sats between 88 to 95% Trend troponins Repeat EKG in the a.m. Continue telemetry monitoring Monitor for electrolyte abnormalities Avoid NSAIDs Lovenox for DVT prophylaxis ADA diet Full code Discussed with RN and SW Disposition pending cardiac evaluation Surrogate decision maker is History of Present Illness History of Present Illness 08/10/2020 No acute events overnight. Patient seen and examined bedside. No complaints voiced at this time. Patient remains chest pain-free. Patient's chart, labs, images were reviewed and discussed with RN 45 yo male admitted for complains of chest pain. Reports of chest pressure but more so in the epigastric region which seems to be reproducible to palpation. This is nonradiating and started yesterday. He actually went [facility] and was told to go to ED. This is not the same discomfort as when he had his STEMI with thrombectomy and PCI. He has been SOA since getting discharge from his last visit but no significant increase. No nausea or vomiting. No fever or chills and no cough or heartburn. He did note that while he was at urgent care his O2 sat drops in the 80s at times also at home. No palpitations or frequent dizziness. Denies any PND, or orthopnea. Denies any exposure from Covid-19 Vitals/I&O Vitals/I&O: Vital Signs Date Time Temp Pulse Resp B/P (MAP) Pulse Ox O2 Delivery O2 Flow Rate FiO2 08/10/20 11:37 91 132/94 08/10/20 11:05 97.0 20 99 Room Air 97.0 I & O 08/09/20 08/09/20 08/10/20 15:00 23:00 07:00 Intake Total 0 ml 180 ml Output Total 400 ml Balance 0 ml 180 ml -400 ml Physical Exam General: Alert, Oriented X3, Cooperative, No acute distress Heart: Regular rate (SR), Normal S1, Normal S2, No murmurs Lungs: Clear Abdomen: Soft, No tenderness Extremities: No cyanosis, No edema Skin: No breakdown, No significant lesion Labs Labs: Laboratory Tests Test 08/09/20 13:50 08/10/20 05:40 Prothrombin Time 14.5 SEC (11.7-14.0) Prothromb Time International Ratio 1.2 (0.8-1.1) White Blood Count 9.6 x10^3/uL (4.0-11.0) Red Blood Count 4.83 x10^6/uL (4.30-5.70) Hemoglobin 14.4 g/dL (13.0-17.5) Hematocrit 42.5 % (39.0-53.0) Mean Corpuscular Volume 88 fL (79-100) Mean Corpuscular Hemoglobin 30 pg (25-35) Mean Corpuscular Hemoglobin Concent 34 g/dL (31-37) Red Cell Distribution Width 14.5 % (11.5-14.5) Platelet Count 235 x10^3/uL (140-400) Neutrophils (%) (Auto) 61 % (31-73) Lymphocytes (%) (Auto) 30 % (24-48) Monocytes (%) (Auto) 6 % (0-9) Eosinophils (%) (Auto) 2 % (0-3) Basophils (%) (Auto) 1 % (0-3) Neutrophils # (Auto) 5.8 x10^3/uL (1.8-7.7) Lymphocytes # (Auto) 2.9 x10^3/uL (1.0-4.8) Monocytes # (Auto) 0.6 x10^3/uL (0.0-1.1) Eosinophils # (Auto) 0.2 x10^3/uL (0.0-0.7) Basophils # (Auto) 0.1 x10^3/uL (0.0-0.2) Sodium Level 139 mmol/L (136-145) Potassium Level 3.9 mmol/L (3.5-5.1) Chloride Level 106 mmol/L (98-107) Carbon Dioxide Level 23 mmol/L (21-32) Anion Gap 10 (6-14) Blood Urea Nitrogen 14 mg/dL (8-26) Creatinine 0.9 mg/dL (0.7-1.3) Estimated GFR (Cockcroft-Gault) 90.4 Glucose Level 104 mg/dL (70-99) Calcium Level 8.5 mg/dL (8.5-10.1) Phosphorus Level 3.4 mg/dL (2.6-4.7) Magnesium Level 2.2 mg/dL (1.8-2.4) Assessment and Plan Assessmemt and Plan Problems Medical Problems: (1) Chest pain Status: Acute Comment Review of Relevant I have reviewed the following items shantel (where applicable) has been applied. Medications: Current Medications Medications (Trade) Dose Ordered Sig/Delvis Route PRN Reason Start Time Stop Time Status Last Admin Dose Admin Nicotine (Nicoderm Cq 14mg) 1 patch DAILY TD 08/09/20 13:00 08/10/20 11:36 Atorvastatin Calcium (Lipitor) 40 mg QHS PO 08/09/20 21:00 08/09/20 20:53 Metoprolol Tartrate (Lopressor) 25 mg BID PO 08/09/20 21:00 08/10/20 11:37 Ticagrelor (Brilinta) 90 mg BID PO 08/09/20 21:00 08/10/20 11:37 Rivaroxaban (Xarelto) 20 mg DAILYBFRSUP PO 08/09/20 17:00 08/09/20 17:39 Clindamycin HCl (Cleocin) 150 mg TID PO 08/09/20 16:00 08/13/20 15:59 08/10/20 11:36 Amiodarone HCl (Cordarone) 200 mg DAILY PO 08/09/20 16:00 08/10/20 11:37 Justifications for Admission Chest Pain Indications Serious Diagnosis?: Yes Justification for admission: Chest pain may be indicative of potentially serious diagnosis/diagnoses Please state condition(s) which will require inpatient level of care for further evaluation and management. Hx of NH Other Justification PRISCILA PENALOZA MD Aug 10, 2020 12:16
[2020-08-10 15:05] VITALS: BP 127/80
--- NOTE | 2020-08-10 16:34 | PDOC ---
LYNN ABREU BRINEYARD SUPERVISOR 08/10/20 1634: CARDIO Progress Notes Date and Time Date of Service 08/10/20 Time of Evaluation 1245 Subjective Subjective: No Chest Pain, No shortness of breath Vitals Vitals Vital Signs Date Time Temp Pulse Resp B/P (MAP) Pulse Ox O2 Delivery O2 Flow Rate FiO2 08/10/20 11:37 91 118/85 08/10/20 11:05 97.0 20 99 Room Air 97.0 Weight Weight [ ] Input and Output Intake and Output Intake and Output 08/10/20 07:00 Intake Total 180 ml Output Total 400 ml Balance -220 ml Intake Oral 180 ml Output Urine Total 400 ml # Voids 3 Laboratory Labs Laboratory Tests Test 08/10/20 05:40 White Blood Count 9.6 x10^3/uL (4.0-11.0) Red Blood Count 4.83 x10^6/uL (4.30-5.70) Hemoglobin 14.4 g/dL (13.0-17.5) Hematocrit 42.5 % (39.0-53.0) Mean Corpuscular Volume 88 fL (79-100) Mean Corpuscular Hemoglobin 30 pg (25-35) Mean Corpuscular Hemoglobin Concent 34 g/dL (31-37) Red Cell Distribution Width 14.5 % (11.5-14.5) Platelet Count 235 x10^3/uL (140-400) Neutrophils (%) (Auto) 61 % (31-73) Lymphocytes (%) (Auto) 30 % (24-48) Monocytes (%) (Auto) 6 % (0-9) Eosinophils (%) (Auto) 2 % (0-3) Basophils (%) (Auto) 1 % (0-3) Neutrophils # (Auto) 5.8 x10^3/uL (1.8-7.7) Lymphocytes # (Auto) 2.9 x10^3/uL (1.0-4.8) Monocytes # (Auto) 0.6 x10^3/uL (0.0-1.1) Eosinophils # (Auto) 0.2 x10^3/uL (0.0-0.7) Basophils # (Auto) 0.1 x10^3/uL (0.0-0.2) Sodium Level 139 mmol/L (136-145) Potassium Level 3.9 mmol/L (3.5-5.1) Chloride Level 106 mmol/L (98-107) Carbon Dioxide Level 23 mmol/L (21-32) Anion Gap 10 (6-14) Blood Urea Nitrogen 14 mg/dL (8-26) Creatinine 0.9 mg/dL (0.7-1.3) Estimated GFR (Cockcroft-Gault) 90.4 Glucose Level 104 mg/dL (70-99) Calcium Level 8.5 mg/dL (8.5-10.1) Phosphorus Level 3.4 mg/dL (2.6-4.7) Magnesium Level 2.2 mg/dL (1.8-2.4) Physical Exam HEENT: Neck Supple W Full Motion Chest: Symmetric LUNGS: Clear to Auscultation Heart: RRR Abdomen: Soft N/T Extremities: No Edema Neurology: alert, oriented, follow commands Assessment Assessment 1. Chest pain; mixed feature. AMI ruled out. EKG without acute changes. CTA negative for PE. COVID negative 2. Recent large inferior STEMI with high thrombus burden in the RCA region with eventual HAYLEE and plain old balloon angioplasty of the ostium of the RPL and RPDA branches and treated with xarelto and brilinta 3. Dyspnea: CTA negative for PE 4. HTN: controlled 5. HLP: not on goal 6. Obesity 7. Chronic diastolic CHF; appears compensated 8. Hx of Vfib during attempted PCI: hence event monitor is in place due to be return on 08/16/2020 Recommendations Continue secondary prevention including Brilinta and Xarelto Amiodarone for rhythm maintenance Will arrange outpatient echo Outpatient sleep study. Supportive care Followup in our office with Dr. Salinas as scheduled. Justicifation of Admission Dx: Justifications for Admission: Justification of Admission Dx: Yes IN: Acute STEMI MIKA SALINAS MD 08/10/20 1821: CARDIO Progress Notes Plan Plan The patient was seen and interviewed as well as examined at the bedside. The chart was reviewed. The case was discussed. Agree with the plan of care. Ok to DC home today. Will plan for outpt echo. Thanks LYNN ABREU APRN Aug 10, 2020 16:34 MIKA SALINAS MD Aug 10, 2020 18:21
--- NOTE | 2020-08-10 16:55 | NUR ---
SW following. Spoke with RN and reviewed chart. Pt from home. Pt on room air, IV Dextrose, COVID negative. PT saw pt and pt declined the need for PT evaluate. Pt to discharge home, self-care when stable. Pt to have echo today.
--- NOTE | 2020-08-10 17:08 | DISCH ---
DISCHARGE INSTRUCTIONS Condition on Discharge Condition on Discharge: Stable Activity After Discharge Activity Instructions for Disc: Activity as tolerated Weight Bearing Status after Di: As tolerated Diet after Discharge Diet after Discharge: Cardiac Diet Texture: Regular Liquid Texture: Thin Liquid Checks after Discharge Checks after discharge: Check blood press - daily, Check your Temp as needed, Weigh Yourself Daily Follow-Up Follow up with: Dr. Salinas (cardiology) Wed. 2019 at 8:30am [phone] Follow Up With: PCP in 1 week PRISCILA PENALOZA MD Aug 10, 2020 17:08
[2020-08-10] MEDS: RIVAROXABAN 10 MG TABLET. PO SCH (17:34)
--- NOTE | 2020-08-10 18:45 | NUR ---
Discharge Note: CONRAD TRAN [address] [place] [address] Discharge instructions and discharge home medications reviewed with Patient and a copy given. All questions have been answered and understanding verbalized. The following instructions and handouts were given: discharge instructions, follow ups, CP info. Discontinued lines and drains: Peripheral IV intact. Patient discharged to Home or Self Care with Family Member via Ambulated at 1845. Patient requested a RX for nitro, Dr. Warner henriquez with that, called in RX to patient's pharmacy.
--- NOTE | 2020-08-11 22:04 | PDOC3 ---
[facility]-Discharge Summary Date of Admission: Date of Admission: Aug 09, 2020 Date of Discharge: Date of Discharge: Aug 10, 2020 Admission Diagnosis: Admitting Diagnosis: acute respiratory distress and Chest pain concerning for unstable angina/NSTEMI HEART score 4 Elevated D-dimer Suspect COVID infection Discharge Diagnosis: Discharge Diagnosis: acute respiratory distress and Chest pain concerning for unstable angina/NSTEMI HEART score 4 Elevated D-dimer Suspect COVID infection Consults: Consults: cardiology Hospital Course: Hospital Course: 45 year old white Male who presents with chest pain. He has a history of DE with angioplasty on 07/13 and stent placement on 07/17. This began today at 1900h. Chest pain is described as sharp, constant and 5/10 that occurred at rest. Patient admits to radiation of pain to right side of his chest. Location of pain is at midclavicular, 5th intercostal space. Patient has experienced intermittent shortness of breath from this episode without any clear aggravation. He went to the urgent care at 1930 and received an EKG and sent to ED. He did not take any medications at this time and denies any aggravating factors. He states he had a similar pain on night/Friday morning and was not seen as he attributed to gas. He is seen with his mother who is also his ride. Denies trauma. Denies fever/chills. Denies trauma. Admitted for further care and evaluation from cardiology. Patient remained chest pain free throughout his hospital stay. He will be followed up with an outpatient Echo and sleep study. He was also tested for covid because for his SOB and elevated D dimer. A covid test was completed and was negative. Patient was asymptomatic and breathing comfortably on RA. The rest of his hospital course was uneventful. Disposition: Disposition/Orders: D/C to Home Activity: Activity: Resume previous activity Diet: Diet: Cardiac Medications: Home Meds Reported Medications Clindamycin Hcl (CLINDAMYCIN HCL) 300 Mg Capsule, 300 MG PO TID for tooth infection, CAP 08/09/20 Nicotine (NICODERM CQ 14mg) 1 Each Patch.td24, 1 PATCH TP DAILY for smoking cessation, #14 PATCH 07/18/20 Metoprolol Tartrate (METOPROLOL TARTRATE) 25 Mg Tablet, 1 TAB PO BID for heart rate, #180 TAB 1 Refill 07/18/20 Amiodarone Hcl (AMIODARONE HCL) 200 Mg Tablet, 200 MG PO DAILY for afib, TAB 07/18/20 Atorvastatin Calcium (LIPITOR) 40 Mg Tablet, 1 TAB PO QHS for radha, #90 TAB 3 Refills 07/18/20 Ticagrelor (BRILINTA) 90 Mg Tablet, 90 MG PO BID for afib, TAB 07/18/20 Rivaroxaban (XARELTO) 20 Mg Tablet, 1 TAB PO DAILY for blood thinner for 30 Days, #30 TAB 0 Refills with food 07/18/20 Scheduled Amiodarone Hcl (Amiodarone Hcl), 200 MG PO DAILY, (Reported) Atorvastatin Calcium (Lipitor), 1 TAB PO QHS, (Reported) Clindamycin Hcl (Clindamycin Hcl), 300 MG PO TID, (Reported) Metoprolol Tartrate (Metoprolol Tartrate), 1 TAB PO BID, (Reported) Nicotine (NICODERM CQ 14mg), 1 PATCH TP DAILY, (Reported) Rivaroxaban (Xarelto), 1 TAB PO DAILY, (Reported) Ticagrelor (Brilinta), 90 MG PO BID, (Reported) Total Time: Total Time: Total time spent was 35 minutes in preparing scripts, discharge planning with SW and RN, and preparing this discharge summary. Patient seen and examined on day of discharge. Justicifation of Admission Dx: Justifications for Admission: Justification of Admission Dx: Yes DE: Acute STEMI PRISCILA PENALOZA MD Aug 11, 2020 22:04
== END 2020-08-10 18:45 | disposition home or self-care (01) | DRG 281 ==
LOC: ER 20:29 → OBSVTOIN 22:41 → ED HOLD 22:41 → 6 SOUTH 23:59 → 2 SOUTH 08-09 11:45 → 6 SOUTH 08-09 14:29
PROVIDERS: ADMIT Family Medicine; ATTEND Family Medicine
DX: I21.4 Non-ST elevation (NSTEMI) myocardial infarction (principal); D68.9 Coagulation defect, unspecified; I50.32 Chronic diastolic (congestive) heart failure; K21.9 Gastro-esophageal reflux disease without esophagitis; I25.110 Atherosclerotic heart disease of native coronary artery with unstable angina pectoris; E66.9 Obesity, unspecified; E78.00 Pure hypercholesterolemia, unspecified; E78.5 Hyperlipidemia, unspecified; F17.210 Nicotine dependence, cigarettes, uncomplicated; G47.33 Obstructive sleep apnea (adult) (pediatric); I11.0 Hypertensive heart disease with heart failure; I25.2 Old myocardial infarction; Z20.828 Contact with and (suspected) exposure to other viral communicable diseases; Z79.02 Long term (current) use of antithrombotics/antiplatelets; Z82.49 Family history of ischemic heart disease and other diseases of the circulatory system; Z98.61 Coronary angioplasty status; M19.90 Unspecified osteoarthritis, unspecified site; R07.89 Other chest pain
CPT/HCPCS: 36415; 71275; 80048; 80053; 80061; 80307; 81001; 83690; 83735; 83880; 84100; 84484; 85025; 85379; 85610; 85730; 93005; J7030; Q9967; G0378; U0003-CS

== ENCOUNTER 2020-09-01 23:00 | Inpatient (IN) | payer BC ==
[~2020-09-01] VITALS: Ht 175.3 cm; Wt 105.5 kg
[~2020-09-01 23:00] MED LIST changes: +CLIN300C8 PO
[2020-09-01] MEDS: NITROGLYCERIN SUBLINGUAL 0.4 MG BOTTLE OF 25. SL PRN ×2 (23:17→23:24)
--- NOTE | 2020-09-01 23:24 | PHYS DOC ---
Past Medical History Past Medical History: CAD, High Cholesterol, Hypertension Additional Past Medical Histor: STENT, ANGIO Past Surgical History: Angioplasty Smoking Status: Current Every Day Smoker Alcohol Use: None Drug Use: None General Adult EDM: Chief Complaint: CHEST PAIN HPI: HPI: History taken patient. Patient is a 45-year-old male with past medical history significant for coronary artery disease including recent [place] with stent placement who presents with a chief complaint of chest and back pain. He states 15 minutes prior to arrival he began developing sudden onset right scapular pain. He states occasionally has sharp substernal chest pain as well. Does note some associated shortness of breath. Did try home nitroglycerin that did give some relief. Rates his pain is currently 4 out of 10. States the pain occasionally rated to his right shoulder. Denies diaphoresis. Denies nausea. States this feels similar to when he had his heart attack but less severe in nature. He does note that he was recently hospitalized after his [place] a couple of weeks ago for similar symptoms. He has been taking all of his home medications including Xarelto. States nothing seems to exacerbate the symptoms. Denies history of blood clot in the legs or lungs. No other complaints Review of Systems: Review of Systems: Constitutional: Denies fever or chills. [] Eyes: Denies change in visual acuity. [] HENT: Denies nasal congestion or sore throat. [] Respiratory: Denies cough or shortness of breath. [] Cardiovascular: Positive for chest pain GI: Denies abdominal pain, nausea, vomiting, bloody stools or diarrhea. [] : Denies dysuria. [] Musculoskeletal: Positive for back pain Integument: Denies rash. [] Neurologic: Denies headache, focal weakness or sensory changes. [] Endocrine: Denies polyuria or polydipsia. [] Lymphatic: Denies swollen glands. [] Psychiatric: Denies depression or anxiety. [] Heart Score: HEART Score for Chest Pain: HEART Score for Chest Pain Response (Comments) Value History Moderately Suspicious 1 ECG Nonspecific Repolarizatio 1 Age >45 - < 65 1 Risk Factors >3 Risk Factors or Hx CAD 2 Troponin < Normal Limit 0 Total 5 Risk Factors: Risk Factors: DM, Current or recent (<one month) smoker, HTN, HLP, family history of CAD, obesity. Risk Scores: Score 0 - 3: 2.5% MACE over next 6 weeks - Discharge Home Score 4 - 6: 20.3% MACE over next 6 weeks - Admit for Clinical Observation Score 7 - 10: 72.7% MACE over next 6 weeks - Early Invasive Strategies Current Medications: Current Medications Medications (Trade) Dose Ordered Sig/Delvis Start Time Stop Time Status Last Admin Dose Admin Nitroglycerin (Nitrostat) 0.4 mg PRN Q5MIN PRN 09/01/20 23:15 09/01/20 23:17 0.4 MG Allergies: Allergies: Allergies Coded Allergies Type Severity Reaction Last Updated Verified Penicillins Allergy Intermediate hives/rash/swelling 07/13/20 Yes Physical Exam: PE: Constitutional: Appears uncomfortable HENT: Normocephalic, atraumatic, bilateral external ears normal, oropharynx moist, no oral exudates, nose normal. [] Eyes: PERRLA, EOMI, conjunctiva normal, no discharge. [] Neck: Normal range of motion, no tenderness, supple, no stridor. [] Cardiovascular:Heart rate regular rhythm, no murmur [] Lungs & Thorax: Bilateral breath sounds clear to auscultation. +2-4 distal pulses bilaterally. [] Abdomen: soft, no tenderness, no masses, no pulsatile masses. [] Skin: Warm, dry, no erythema, no rash. [] Back: No tenderness, no CVA tenderness. [] Extremities: No tenderness, no cyanosis, no clubbing, ROM intact, no edema. [] Neurologic: Alert and oriented X 3, normal motor function, normal sensory function, no focal deficits noted. [] Psychologic: Affect normal, judgement normal, mood normal. [] Current Patient Data: Labs: Laboratory Tests Test 09/01/20 23:11 White Blood Count 11.3 x10^3/uL Red Blood Count 5.10 x10^6/uL Hemoglobin 15.8 g/dL Hematocrit 45.2 % Mean Corpuscular Volume 89 fL Mean Corpuscular Hemoglobin 31 pg Mean Corpuscular Hemoglobin Concent 35 g/dL Red Cell Distribution Width 15.4 % Platelet Count 284 x10^3/uL Neutrophils (%) (Auto) 63 % Lymphocytes (%) (Auto) 27 % Monocytes (%) (Auto) 7 % Eosinophils (%) (Auto) 2 % Basophils (%) (Auto) 1 % Neutrophils # (Auto) 7.1 x10^3/uL Lymphocytes # (Auto) 3.1 x10^3/uL Monocytes # (Auto) 0.8 x10^3/uL Eosinophils # (Auto) 0.3 x10^3/uL Basophils # (Auto) 0.1 x10^3/uL Sodium Level 138 mmol/L Potassium Level 3.7 mmol/L Chloride Level 102 mmol/L Carbon Dioxide Level 30 mmol/L Anion Gap 6 Blood Urea Nitrogen 18 mg/dL Creatinine 1.2 mg/dL Estimated GFR (Cockcroft-Gault) 64.9 Glucose Level 118 mg/dL Calcium Level 9.1 mg/dL Troponin I Quantitative < 0.017 ng/mL SZ-Coe-D-Type Natriuretic Peptide 230 pg/mL Current Medications Medications (Trade) Dose Ordered Sig/Delvis Route PRN Reason Start Time Stop Time Status Last Admin Dose Admin Nitroglycerin (Nitrostat) 0.4 mg PRN Q5MIN PRN SL CHEST PAIN 09/01/20 23:15 09/01/20 23:24 Iohexol (Omnipaque 350 Mg/ml) 100 ml 1X ONCE IV 09/02/20 00:00 09/02/20 00:33 DC 09/02/20 00:23 Info (CONTRAST GIVEN -- Rx MONITORING) 1 each PRN DAILY PRN MC SEE COMMENTS 09/02/20 00:15 09/04/20 00:14 Vital Signs: Vital Signs Date Time Temp Pulse Resp B/P (MAP) Pulse Ox O2 Delivery O2 Flow Rate FiO2 09/01/20 23:17 99 177/90 EKG: EKG: [] EKG consistent with sinus tachycardia. Ventricular rate of 101 bpm. Left axis noted. Q waves noted in the inferior leads. T wave inversion noted in lead III. No ST segment elevation appreciated. Appears similar to EKG from July 16, 2020 Radiology/Procedures: Radiology/Procedures: [facility] [address] [place] [address] IMAGING REPORT Signed PATIENT: CONRAD TRAN ACCOUNT: [id number] : 1975 LOCATION: ER AGE: 45 SEX: M EXAM STATUS: REG ER ORD. PHYSICIAN: RUPA BILLINGSLEY DO REASON: R upper BP and CP. bernarda for dissection OMNI 350, 100 ML IV PROCEDURE: CT ANGIO CHEST ABD PELVIS STUDY: CT angiography of the chest, abdomen and pelvis INDICATION: Chest pain and upper back pain. Dissection. COMPARISON: CT angiography of the chest 08/08/2020 TECHNIQUE: CT angiography of the chest, abdomen and pelvis performed after the intravenous administration of 99 cc Omnipaque 350. Coronal and sagittal 3D MIP reconstructions were obtained. One or more of the following individualized dose reduction techniques were utilized for this examination: 1. Automated exposure control 2. Adjustment of the mA and/or kV according to patient size 3. Use of iterative reconstruction technique. FINDINGS: No aortic dissection or aneurysm. The visualized great vessels are patent. No central pulmonary embolism. The celiac, SMA and renal artery origins are patent. The DANIEL origin is patent. Localized noncalcified atheromatous plaque at and just below the level of the DANIEL insertion, image 134 series 3. No stenosis of the common iliac arteries, external iliac arteries or visualized femoral arteries. Mild stenosis at the proximal aspect of the right internal iliac artery. Unchanged mediastinal and hilar lymph nodes. Unremarkable esophagus. No pericardial effusion. No localized airspace infiltrate, suspicious pulmonary nodule, pleural effusion or pneumothorax. The central airways are patent. Unremarkable thyroid and axilla. No displaced rib fracture. The thoracic spine is intact. Hepatic steatosis. Postprandial appearance of the gallbladder. Unremarkable biliary tree and pancreas. Normal size of the spleen. No adrenal gland mass. Symmetric renal enhancement pattern. No collecting system dilatation. Unremarkable bladder and prostate. No acute abnormality of the colon. Normal appendix. Nonobstructed small bowel. Distended stomach. No ascites or pneumoperitoneum. Maintained lumbar vertebral body height and alignment. No advanced spondylosis. IMPRESSION: 1. No aortic dissection or aneurysm. The central pulmonary arteries are patent. Collectively there is no vascular abnormality to account for the patient's symptoms. 2. A few chronic observations detailed in the body the report. Electronically signed by: SUSIE WILDER MD (09/02/2020 12:37 AM) [id number] DICTATED and SIGNED BY: SUSIE WILDER MD DATE: 09/02/20 0037 [] Course & Med Decision Making: Course & Med Decision Making Pertinent Labs and Imaging studies reviewed. (See chart for details) [] Patient is a 45-year-old male with a history of coronary artery disease and recent coronary artery stent placement who presents with chief complaint of sudden onset right subscapular and anterior chest wall pain. Patient did get complete resolution of his chest pain with nitro. CT dissection study was obtained and shows no signs of aortic involvement. Per chart review patient has been seen post coronary artery stent placement for chest pain and was hospitalized with unremarkable work-up. Labs today have been unremarkable including normal troponin. I am concerned regarding the patient's chest pain is this could be secondary to unstable angina. After extensive chart review patient's catheterization report did reveal concerning findings including: Three-vessel coronary disease with acute culprit due to distal RCA heavy thrombotic occlusionm, Partially successful thrombectomy, thrombolysis and balloon angioplasty of the distal RCA, RPDA and RPL vessels, Persistent thrombus in the distal RCA. Based on the cath report it sounds as though the entirety of his coronary artery disease was not successfully stented. Given this I do feel the patient is appropriate for hospitalization. Full dose aspirin administered. Remains chest pain-free. Fabricioon Disclaimer: David Disclaimer: This electronic medical record was generated, in whole or in part, using a voice recognition dictation system. Departure Departure Impression: Primary Impression: Unstable angina Additional Impressions: CAD (coronary artery disease) Qualified Codes: I25.110 - Atherosclerotic heart disease of [place] coronary artery with unstable angina pectoris Hypertension Qualified Codes: I10 - Essential (primary) hypertension Hyperlipidemia Qualified Codes: E78.5 - Hyperlipidemia, unspecified Disposition: 09 ADMITTED INPT THIS HOSP Condition: STABLE Referrals: LADY FERNANDES (PCP) RUPA BILLINGSLEY DO Sep 01, 2020 23:24
[2020-09-01 23:27] LABS: BASO # 0.1 x10^3/uL (0.0-0.2); BASO % 1 % (0-3); EOS # 0.3 x10^3/uL (0.0-0.7); EOS % 2 % (0-3); HEMATOCRIT 45.2 % (39.0-53.0); HEMOGLOBIN 15.8 g/dL (13.0-17.5); LYMPH # 3.1 x10^3/uL (1.0-4.8); LYMPH % 27 % (24-48); MEAN CORPUSCULAR HEMOGLOBIN 31 pg (25-35); MEAN CORPUSCULAR HGB CONC 35 g/dL (31-37); MEAN CORPUSCULAR VOLUME 89 fL (79-100); MONO # 0.8 x10^3/uL (0.0-1.1); MONO % 7 % (0-9); NEUT # 7.1 x10^3/uL (1.8-7.7); NEUT % 63 % (31-73); PLATELET COUNT 284 x10^3/uL (140-400); RED CELL DISTRIBUTION WIDTH 15.4 % (11.5-14.5); WHITE BLOOD COUNT 11.3 x10^3/uL (4.0-11.0)
[2020-09-01 23:35] LABS: CALCIUM 9.1 mg/dL (8.5-10.1); CREATININE 1.2 mg/dL (0.7-1.3); GFR 64.9; POTASSIUM 3.7 mmol/L (3.5-5.1)
[2020-09-02] MEDS ORDERED: IOHEXOL 350 MG/ML 100 ML VIAL. IV ONE
[2020-09-02] MEDS ORDERED: CONTRAST GIVEN. MC PRN (00:15)
--- NOTE | 2020-09-02 00:40 | RAD ---
STUDY: CT angiography of the chest, abdomen and pelvis INDICATION: Chest pain and upper back pain. Dissection. COMPARISON: CT angiography of the chest 08/08/2020 TECHNIQUE: CT angiography of the chest, abdomen and pelvis performed after the intravenous administration of 99 cc Omnipaque 350. Coronal and sagittal 3D MIP reconstructions were obtained. One or more of the following individualized dose reduction techniques were utilized for this examination: 1. Automated exposure control 2. Adjustment of the mA and/or kV according to patient size 3. Use of iterative reconstruction technique. FINDINGS: No aortic dissection or aneurysm. The visualized great vessels are patent. No central pulmonary embolism. The celiac, SMA and renal artery origins are patent. The DANIEL origin is patent. Localized noncalcified atheromatous plaque at and just below the level of the DANIEL insertion, image 134 series 3. No stenosis of the common iliac arteries, external iliac arteries or visualized femoral arteries. Mild stenosis at the proximal aspect of the right internal iliac artery. Unchanged mediastinal and hilar lymph nodes. Unremarkable esophagus. No pericardial effusion. No localized airspace infiltrate, suspicious pulmonary nodule, pleural effusion or pneumothorax. The central airways are patent. Unremarkable thyroid and axilla. No displaced rib fracture. The thoracic spine is intact. Hepatic steatosis. Postprandial appearance of the gallbladder. Unremarkable biliary tree and pancreas. Normal size of the spleen. No adrenal gland mass. Symmetric renal enhancement pattern. No collecting system dilatation. Unremarkable bladder and prostate. No acute abnormality of the colon. Normal appendix. Nonobstructed small bowel. Distended stomach. No ascites or pneumoperitoneum. Maintained lumbar vertebral body height and alignment. No advanced spondylosis. IMPRESSION: 1. No aortic dissection or aneurysm. The central pulmonary arteries are patent. Collectively there is no vascular abnormality to account for the patient's symptoms. 2. A few chronic observations detailed in the body the report. Electronically signed by: SUSIE WILDER MD (09/02/2020 12:37 AM) [id number]
[2020-09-02] MEDS ORDERED: ONDANSETRON PF 4 MG/2 ML VIAL. IV PRN (01:00)
[2020-09-02] MEDS ORDERED: MORPHINE SULFATE 4 MG/ML VIAL. IV PRN (01:00)
[2020-09-02] MEDS ORDERED: fentaNYL PF VIAL 100 MCG/2 ML VIAL IVP ONE (01:15)
[2020-09-02] MEDS ORDERED: ASPIRIN CHEWABLE 81 MG TABLET. PO ONE (01:15)
--- NOTE | 2020-09-02 02:11 | RAD ---
Study: CR CHEST AP ONLY Indication: Chest pain. Comparison: 08/08/2020 CT chest Findings: Within normal limits cardiomediastinal silhouette and yoselin. No lobar consolidation, pleural effusion or pneumothorax. Impression: No acute radiographic abnormality of the chest. Electronically signed by: SUSIE WILDER MD (09/02/2020 2:08 AM) [id number]
[2020-09-02 02:35] VITALS: BP 121/86
[2020-09-02] MEDS ORDERED: LISI10TA2 PO (03:56)
[2020-09-02 07:10] VITALS: BP 113/78
--- NOTE | 2020-09-02 09:11 | PDOC1 ---
History and Physical Date of Admission Date of Admission DATE: 09/02/20 TIME: 09:05 History of Present Illness History of Present Illness Mr. Weller is a 45-year-old male with past medical history significant for coronary artery disease including recent [place] with stent placement who presents with a chief complaint of chest and back pain. some new dyspnea when pain happened. He had sudden sharp pain tohis back that radiated to his right jaw, He states occasionally has sharp substernal chest pain as well. Did try home nitroglycerin that did give some relief, he took 3 nitro and still had pain. Rates his pain is currently 0 out of 10. was 9/10 at home, 4/10 in ER. no nausea or sweating, but pain similar to acute pain for CAD 2 mos ago when stent placed, this is now 3rd amdit in 3 mos. States the pain occasionally rated to his right shoulder. . He has been taking all of his home medications including Xarelto. States nothing seems to exacerbate the symptoms. Past Medical History Cardiovascular: CAD, CHF, HTN, MS, Hyperlipidemia, Other Pulmonary: No pertinent hx CENTRAL NERVOUS SYSTEM: Other GI: GERD Heme/Onc: No pertinent hx Hepatobiliary: No pertinent hx Psych: No pertinent hx Musculoskeletal: Osteoarthritis Rheumatologic: No pertinent hx Infectious disease: No pertinent hx Renal/: No pertinent hx Past Surgical History Past Surgical History: Tonsillectomy, Other Family History Family History: Hypertension Social History Smoke: <1 pack per day ALCOHOL: none Drugs: None Current Problem List Problem List Problems Medical Problems: (1) CAD (coronary artery disease) Status: Acute (2) Hyperlipidemia Status: Acute (3) Hypertension Status: Acute (4) Unstable angina Status: Acute Current Medications Current Medications Current Medications Nitroglycerin (Nitrostat) 0.4 mg PRN Q5MIN PRN SL CHEST PAIN Last administered on 09/01/20at 23:24; Start 09/01/20 at 23:15 Iohexol (Omnipaque 350 Mg/ml) 100 ml 1X ONCE IV Last administered on 09/02/20at 00:23; Start 09/02/20 at 00:00; Stop 09/02/20 at 00:33; Status DC Info (CONTRAST GIVEN -- Rx MONITORING) 1 each PRN DAILY PRN MC SEE COMMENTS; Start 09/02/20 at 00:15; Stop 09/04/20 at 00:14 Aspirin (Aspirin Chewable) 324 mg 1X ONCE PO Last administered on 09/02/20at 01:30; Start 09/02/20 at 01:15; Stop 09/02/20 at 01:16; Status DC Fentanyl Citrate (Fentanyl 2ml Vial) 50 mcg 1X ONCE IVP Last administered on 09/02/20at 01:30; Start 09/02/20 at 01:15; Stop 09/02/20 at 01:16; Status DC Ondansetron HCl (Zofran) 4 mg PRN Q8HRS PRN IV NAUSEA/VOMITING Last a dministered on 09/02/20at 01:30; Start 09/02/20 at 01:00; Stop 09/03/20 at 00:59 Morphine Sulfate (Morphine Sulfate) 4 mg PRN Q2HR PRN IV PAIN; Start 09/02/20 at 01:00; Stop 09/03/20 at 00:59 Amiodarone HCl (Cordarone) 200 mg DAILY PO ; Start 09/02/20 at 09:00 Atorvastatin Calcium (Lipitor) 40 mg QHS PO ; Start 09/02/20 at 21:00 Lisinopril (Prinivil) 10 mg DAILY PO ; Start 09/02/20 at 09:00 Metoprolol Tartrate (Lopressor) 25 mg BID PO ; Start 09/02/20 at 09:00 Ticagrelor (Brilinta) 90 mg BID PO ; Start 09/02/20 at 09:00 Rivaroxaban (Xarelto) 20 mg DAILYWSUP PO ; Start 09/02/20 at 17:00 Active Scripts Active Reported Lisinopril 10 Mg Tablet 1 Tab PO DAILY Metoprolol Tartrate 25 Mg Tablet 1 Tab PO BID Amiodarone Hcl 200 Mg Tablet 200 Mg PO DAILY Lipitor (Atorvastatin Calcium) 40 Mg Tablet 1 Tab PO QHS Brilinta (Ticagrelor) 90 Mg Tablet 90 Mg PO BID Xarelto (Rivaroxaban) 20 Mg Tablet 1 Tab PO DAILY 30 Days with food Allergies Allergies: Coded Allergies: Penicillins (Verified Allergy, Intermediate, hives/rash/swelling, 07/13/20) ROS General: YES: Fatigue; No: Chills, Night Sweats, Malaise, Appetite, Other PSYCHOLOGICAL ROS: No: Anxiety, Behavioral Disorder, Concentration difficultie, Decreased libido, Depression, Disorientation, Hallucinations, Hostility, Irritablity, Memory difficulties, Mood Swings, Obsessive thoughts, Other Eyes: No Blurry vision, No Decreased vision, No Double vision, No Dry eyes, No Excessive tearing, No Eye Pain, No Itchy Eyes, No Loss of vision, No Photophobia, No Scotomata, No Uses contacts, No Uses glasses, No Other HEENT: No: Heacaches, Visual Changes, Hearing change, Nasal congestion, Nasal discharge, Oral lesions, Sinus pain, Sore Throat, Epistaxis, Sneezing, Snoring, Tinnitus, Vertigo, Vocal changes, Other Respiratory: No: Cough, Hemoptysis, Orthopnea, Pleuritic Pain, Shortness of breath, SOB with excertion, Sputum Changes, Stridor, Tachypnea, Wheezing, Other Cardiovascular: yes Chest Pain; No Palpitations, No Orthopnea, No Paroxysmal Noc. Dyspnea, No Edema, No Lt Headedness, No Other Gastrointestinal: No Nausea, No Vomiting, No Abdominal Pain, No Diarrhea, No Constipation, No Melena, No Hematochezia, No Other Genitourinary: No Dysuria, No Frequency, No Incontinence, No Hematuria, No Retention, No Discharge, No Urgency, No Pain, No Flank Pain, No Other, No , No , No , No , No , No , No Musculoskeletal: Yes Pain In: (back to jaw, transient only); No Gait Disturbance, No Joint Pain, No Joint Stiffness, No Muscular Weakness, No Swelling In:, No Other Neurological: No Behavorial Changes, No Bowel/Bladder ControlChng, No Confusion, No Dizziness, No Gait Disturbance, No Headaches, No Impaired Coord/balance, No Memory Loss, No Numbness/Tingling, No Seizures, No Speech Problems, No Tremors, No Visual Changes, No Weakness, No Other Skin: No Dry Skin, No Eczema, No Hair Changes, No Lumps, No Mole Changes, No Mottling, No Nail Changes, No Pruritus, No Rash, No Skin Lesion Changes, No Other, No Acne Physical Exam General: Alert, Oriented X3, Cooperative, No acute distress HEENT: PERRLA, Mucous membr. moist/pink Lungs: Clear to auscultation, Normal air movement Heart: S1S2, no murmurs Abdomen: Soft Extremities: No cyanosis, No edema, Normal pulses Skin: No rashes, No breakdown, No significant lesion Neuro: Normal speech, Cranial nerves 3-12 NL Psych/Mental Status: Mental status NL, Mood NL Vitals Vitals Vital Signs Date Time Temp Pulse Resp B/P (MAP) Pulse Ox O2 Delivery O2 Flow Rate FiO2 09/02/20 07:35 Room Air 09/02/20 07:10 97.7 81 18 113/78 (90) 97 97.7 Labs Labs Laboratory Tests Test 09/01/20 23:11 09/02/20 03:30 09/02/20 07:00 White Blood Count 11.3 x10^3/uL (4.0-11.0) Red Blood Count 5.10 x10^6/uL (4.30-5.70) Hemoglobin 15.8 g/dL (13.0-17.5) Hematocrit 45.2 % (39.0-53.0) Mean Corpuscular Volume 89 fL (79-100) Mean Corpuscular Hemoglobin 31 pg (25-35) Mean Corpuscular Hemoglobin Concent 35 g/dL (31-37) Red Cell Distribution Width 15.4 % (11.5-14.5) Platelet Count 284 x10^3/uL (140-400) Neutrophils (%) (Auto) 63 % (31-73) Lymphocytes (%) (Auto) 27 % (24-48) Monocytes (%) (Auto) 7 % (0-9) Eosinophils (%) (Auto) 2 % (0-3) Basophils (%) (Auto) 1 % (0-3) Neutrophils # (Auto) 7.1 x10^3/uL (1.8-7.7) Lymphocytes # (Auto) 3.1 x10^3/uL (1.0-4.8) Monocytes # (Auto) 0.8 x10^3/uL (0.0-1.1) Eosinophils # (Auto) 0.3 x10^3/uL (0.0-0.7) Basophils # (Auto) 0.1 x10^3/uL (0.0-0.2) Sodium Level 138 mmol/L (136-145) Potassium Level 3.7 mmol/L (3.5-5.1) Chloride Level 102 mmol/L (98-107) Carbon Dioxide Level 30 mmol/L (21-32) Anion Gap 6 (6-14) Blood Urea Nitrogen 18 mg/dL (8-26) Creatinine 1.2 mg/dL (0.7-1.3) Estimated GFR (Cockcroft-Gault) 64.9 Glucose Level 118 mg/dL (70-99) Calcium Level 9.1 mg/dL (8.5-10.1) Troponin I Quantitative < 0.017 ng/mL (0.000-0.055) 0.018 ng/mL (0.000-0.055) < 0.017 ng/mL (0.000-0.055) GQ-Glb-N-Type Natriuretic Peptide 230 pg/mL (0-124) Laboratory Tests Test 09/01/20 23:11 09/02/20 03:30 09/02/20 07:00 White Blood Count 11.3 x10^3/uL (4.0-11.0) Red Blood Count 5.10 x10^6/uL (4.30-5.70) Hemoglobin 15.8 g/dL (13.0-17.5) Hematocrit 45.2 % (39.0-53.0) Mean Corpuscular Volume 89 fL (79-100) Mean Corpuscular Hemoglobin 31 pg (25-35) Mean Corpuscular Hemoglobin Concent 35 g/dL (31-37) Red Cell Distribution Width 15.4 % (11.5-14.5) Platelet Count 284 x10^3/uL (140-400) Neutrophils (%) (Auto) 63 % (31-73) Lymphocytes (%) (Auto) 27 % (24-48) Monocytes (%) (Auto) 7 % (0-9) Eosinophils (%) (Auto) 2 % (0-3) Basophils (%) (Auto) 1 % (0-3) Neutrophils # (Auto) 7.1 x10^3/uL (1.8-7.7) Lymphocytes # (Auto) 3.1 x10^3/uL (1.0-4.8) Monocytes # (Auto) 0.8 x10^3/uL (0.0-1.1) Eosinophils # (Auto) 0.3 x10^3/uL (0.0-0.7) Basophils # (Auto) 0.1 x10^3/uL (0.0-0.2) Sodium Level 138 mmol/L (136-145) Potassium Level 3.7 mmol/L (3.5-5.1) Chloride Level 102 mmol/L (98-107) Carbon Dioxide Level 30 mmol/L (21-32) Anion Gap 6 (6-14) Blood Urea Nitrogen 18 mg/dL (8-26) Creatinine 1.2 mg/dL (0.7-1.3) Estimated GFR (Cockcroft-Gault) 64.9 Glucose Level 118 mg/dL (70-99) Calcium Level 9.1 mg/dL (8.5-10.1) Troponin I Quantitative < 0.017 ng/mL (0.000-0.055) 0.018 ng/mL (0.000-0.055) < 0.017 ng/mL (0.000-0.055) NX-Mtv-D-Type Natriuretic Peptide 230 pg/mL (0-124) VTE Prophylaxis Ordered VTE Prophylaxis Devices: No VTE Pharmacological Prophylaxi: Yes Assessment/Plan Assessment/Plan angina CAD tobacco use disorder obese, BMI 34 pain better, acs ruled out, recent echo was done at , he was not called with results, it was done at for insurance reasons only, he has no doc there. Justifications for Admission Other Justification KASIA RUCKER MD Sep 02, 2020 09:11
[2020-09-02 10:23] VITALS: BP 111/81
[2020-09-02] MEDS: METOPROLOL TART IMMED RELEASE 25 MG TABLET. PO SCH ×2 (11:04→20:49)
[2020-09-02] MEDS: TICAGRELOR 90 MG TABLET. PO SCH ×2 (11:04→20:49)
[2020-09-02] MEDS: AMIODARONE HCL 200 MG TABLET. PO SCH (11:05)
[2020-09-02] MEDS: LISINOPRIL 10 MG TABLET PO SCH (11:05)
[2020-09-02] MEDS: HYDROcodone/APAP 5/325MG 1 TAB TABLET PO PRN ×2 (11:42→20:49)
[2020-09-02] MEDS ORDERED: CYCLOBENZAPRINE 10 MG TABLET. PO PRN (11:45)
--- NOTE | 2020-09-02 12:17 | PDOC2 ---
CONSULT Date of Consult Date of Consult DATE: 09/02/20 TIME: 12:10 Reason for Consult Reason for Consult: Chest pain, coronary artery disease. Referring Physician Referring Physician: Dr. Hylton Identification/Chief Complaint Chief Complaint Chest and shoulder pain Source Source: Chart review, Patient History of Present Illness Reason for Visit: The patient is a 45-year-old male who was admitted through the emergency room wi th episodes of chest and right shoulder pain. The patient states that the pain came on suddenly but has improved overnight. His chest pain has resolved but he continues to have shoulder pain which is increased with motion. His EKG showed no acute ST segment changes. It did show an inferior Q wave. Troponins been normal at less than 0.017x2 and 0.018. The patient's history is significant for an acute inferior ST elevated myocardial infarction on 07/13/2020. Catheterization showed moderate disease in the left system and a heavy burden of thrombus in the right coronary artery. This was treated with aspiration, alteplase and multiple balloon inflations. The patient was then returned electively in a staged manner to the catheterization lab on 07/17/2020 were received a right coronary artery drug-eluting stent. Since that time the patient has been feeling better. Past Medical History Cardiovascular: CAD, CHF, HTN, DE, Hyperlipidemia, Other Pulmonary: No pertinent hx CENTRAL NERVOUS SYSTEM: Other GI: GERD Heme/Onc: No pertinent hx Hepatobiliary: No pertinent hx Psych: No pertinent hx Musculoskeletal: Osteoarthritis Rheumatologic: No pertinent hx Infectious disease: No pertinent hx Renal/: No pertinent hx Past Surgical History Past Surgical History: Tonsillectomy, Other (Coronary stenting as above) Family History Family History: Hypertension Social History <1 pack per day ALCOHOL: none Drugs: None Lives: with Family Current Problem List Problem List Problems Medical Problems: (1) CAD (coronary artery disease) Status: Acute (2) Hyperlipidemia Status: Acute (3) Hypertension Status: Acute (4) Unstable angina Status: Acute Current Medications Current Medications Current Medications Nitroglycerin (Nitrostat) 0.4 mg PRN Q5MIN PRN SL CHEST PAIN Last administered on 09/01/20at 23:24; Start 09/01/20 at 23:15 Iohexol (Omnipaque 350 Mg/ml) 100 ml 1X ONCE IV Last administered on 09/02/20at 00:23; Start 09/02/20 at 00:00; Stop 09/02/20 at 00:33; Status DC Info (CONTRAST GIVEN -- Rx MONITORING) 1 each PRN DAILY PRN MC SEE COMMENTS; Start 09/02/20 at 00:15; Stop 09/04/20 at 00:14 Aspirin (Aspirin Chewable) 324 mg 1X ONCE PO Last administered on 09/02/20at 01:30; Start 09/02/20 at 01:15; Stop 09/02/20 at 01:16; Status DC Fentanyl Citrate (Fentanyl 2ml Vial) 50 mcg 1X ONCE IVP Last administered on 09/02/20at 01:30; Start 09/02/20 at 01:15; Stop 09/02/20 at 01:16; Status DC Ondansetron HCl (Zofran) 4 mg PRN Q8HRS PRN IV NAUSEA/VOMITING Last administ ered on 09/02/20at 01:30; Start 09/02/20 at 01:00; Stop 09/03/20 at 00:59 Morphine Sulfate (Morphine Sulfate) 4 mg PRN Q2HR PRN IV PAIN; Start 09/02/20 at 01:00; Stop 09/03/20 at 00:59 Amiodarone HCl (Cordarone) 200 mg DAILY PO Last administered on 09/02/20at 11:05; Start 09/02/20 at 09:00 Atorvastatin Calcium (Lipitor) 40 mg QHS PO ; Start 09/02/20 at 21:00 Lisinopril (Prinivil) 10 mg DAILY PO Last administered on 09/02/20at 11:05; Start 09/02/20 at 09:00 Metoprolol Tartrate (Lopressor) 25 mg BID PO Last administered on 09/02/20at 11:04; Start 09/02/20 at 09:00 Ticagrelor (Brilinta) 90 mg BID PO Last administered on 09/02/20at 11:04; Start 09/02/20 at 09:00 Rivaroxaban (Xarelto) 20 mg DAILYWSUP PO ; Start 09/02/20 at 17:00 Cyclobenzaprine HCl (Flexeril) 10 mg PRN Q6HRS PRN PO MUSCLE SPASMS; Start 09/02/20 at 11:45 Acetaminophen/ Hydrocodone Bitart (Lortab 5/325) 1 tab PRN Q4HRS PRN PO PAIN Last administered on 09/02/20at 11:42; Start 09/02/20 at 11:45 Active Scripts Active Reported Lisinopril 10 Mg Tablet 1 Tab PO DAILY Metoprolol Tartrate 25 Mg Tablet 1 Tab PO BID Amiodarone Hcl 200 Mg Tablet 200 Mg PO DAILY Lipitor (Atorvastatin Calcium) 40 Mg Tablet 1 Tab PO QHS Brilinta (Ticagrelor) 90 Mg Tablet 90 Mg PO BID Xarelto (Rivaroxaban) 20 Mg Tablet 1 Tab PO DAILY 30 Days with food Allergies Allergies: Coded Allergies: Penicillins (Verified Allergy, Intermediate, hives/rash/swelling, 07/13/20) ROS Cardiovascular: yes Chest Pain Physical Exam General: mild distress HEENT: Atraumatic Lungs: Clear to auscultation Heart: Regular rate Abdomen: Normal bowel sounds Vitals VITALS Vital Signs Date Time Temp Pulse Resp B/P (MAP) Pulse Ox O2 Delivery O2 Flow Rate FiO2 09/02/20 11:42 18 Room Air 09/02/20 11:05 76 111/81 09/02/20 10:23 98.0 97 98.0 Labs Labs Laboratory Tests Test 09/01/20 23:11 09/02/20 03:30 09/02/20 07:00 White Blood Count 11.3 x10^3/uL (4.0-11.0) Red Blood Count 5.10 x10^6/uL (4.30-5.70) Hemoglobin 15.8 g/dL (13.0-17.5) Hematocrit 45.2 % (39.0-53.0) Mean Corpuscular Volume 89 fL (79-100) Mean Corpuscular Hemoglobin 31 pg (25-35) Mean Corpuscular Hemoglobin Concent 35 g/dL (31-37) Red Cell Distribution Width 15.4 % (11.5-14.5) Platelet Count 284 x10^3/uL (140-400) Neutrophils (%) (Auto) 63 % (31-73) Lymphocytes (%) (Auto) 27 % (24-48) Monocytes (%) (Auto) 7 % (0-9) Eosinophils (%) (Auto) 2 % (0-3) Basophils (%) (Auto) 1 % (0-3) Neutrophils # (Auto) 7.1 x10^3/uL (1.8-7.7) Lymphocytes # (Auto) 3.1 x10^3/uL (1.0-4.8) Monocytes # (Auto) 0.8 x10^3/uL (0.0-1.1) Eosinophils # (Auto) 0.3 x10^3/uL (0.0-0.7) Basophils # (Auto) 0.1 x10^3/uL (0.0-0.2) Sodium Level 138 mmol/L (136-145) Potassium Level 3.7 mmol/L (3.5-5.1) Chloride Level 102 mmol/L (98-107) Carbon Dioxide Level 30 mmol/L (21-32) Anion Gap 6 (6-14) Blood Urea Nitrogen 18 mg/dL (8-26) Creatinine 1.2 mg/dL (0.7-1.3) Estimated GFR (Cockcroft-Gault) 64.9 Glucose Level 118 mg/dL (70-99) Calcium Level 9.1 mg/dL (8.5-10.1) Troponin I Quantitative < 0.017 ng/mL (0.000-0.055) 0.018 ng/mL (0.000-0.055) < 0.017 ng/mL (0.000-0.055) KD-[id number]-Type Natriuretic Peptide 230 pg/mL (0-124) Laboratory Tests Test 09/01/20 23:11 09/02/20 03:30 09/02/20 07:00 White Blood Count 11.3 x10^3/uL (4.0-11.0) Red Blood Count 5.10 x10^6/uL (4.30-5.70) Hemoglobin 15.8 g/dL (13.0-17.5) Hematocrit 45.2 % (39.0-53.0) Mean Corpuscular Volume 89 fL (79-100) Mean Corpuscular Hemoglobin 31 pg (25-35) Mean Corpuscular Hemoglobin Concent 35 g/dL (31-37) Red Cell Distribution Width 15.4 % (11.5-14.5) Platelet Count 284 x10^3/uL (140-400) Neutrophils (%) (Auto) 63 % (31-73) Lymphocytes (%) (Auto) 27 % (24-48) Monocytes (%) (Auto) 7 % (0-9) Eosinophils (%) (Auto) 2 % (0-3) Basophils (%) (Auto) 1 % (0-3) Neutrophils # (Auto) 7.1 x10^3/uL (1.8-7.7) Lymphocytes # (Auto) 3.1 x10^3/uL (1.0-4.8) Monocytes # (Auto) 0.8 x10^3/uL (0.0-1.1) Eosinophils # (Auto) 0.3 x10^3/uL (0.0-0.7) Basophils # (Auto) 0.1 x10^3/uL (0.0-0.2) Sodium Level 138 mmol/L (136-145) Potassium Level 3.7 mmol/L (3.5-5.1) Chloride Level 102 mmol/L (98-107) Carbon Dioxide Level 30 mmol/L (21-32) Anion Gap 6 (6-14) Blood Urea Nitrogen 18 mg/dL (8-26) Creatinine 1.2 mg/dL (0.7-1.3) Estimated GFR (Cockcroft-Gault) 64.9 Glucose Level 118 mg/dL (70-99) Calcium Level 9.1 mg/dL (8.5-10.1) Troponin I Quantitative < 0.017 ng/mL (0.000-0.055) 0.018 ng/mL (0.000-0.055) < 0.017 ng/mL (0.000-0.055) BH-Jcs-Y-Type Natriuretic Peptide 230 pg/mL (0-124) Images Images Chest x-ray shows no acute process. CT scan shows no evidence of an aortic dissection or aneurysm. There is no evidence of a central PE. Assessment/Plan Assessment/Plan 1. Chest pain with a history of coronary artery disease and relatively recent intervention as above. Patient had no acute ST changes on his EKG. Troponins have been normal x3. He is feeling better with decreased chest pain and persistent shoulder pain. Recent interventions as noted above. At this time we will continue present home medications including anticoagulation. We will continue on telemetry. Patient reportedly had a recent echo at and will find results. Continue to monitor overnight with gradually increasing activity. 2. Hypertension. Blood pressure is under better control. Continue to monitor. 3. Hyperlipidemia. Will check lab and continue statin medications. 4. Tobacco abuse. Counseled the patient on discontinuing smoking. Thank you for allowing us to participate in the care of your patient. KEANU RING MD Sep 02, 2020 12:17
[2020-09-02 14:15] VITALS: BP 125/88
[2020-09-02] MEDS ORDERED: RIVAROXABAN 10 MG TABLET. PO SCH (17:00)
[2020-09-02 19:37] VITALS: BP 98/65
[2020-09-02] MEDS ORDERED: ATORVASTATIN CALCIUM 40 MG TABLET. PO SCH (21:00)
[2020-09-02 22:40] VITALS: BP 100/66
[2020-09-03 03:01] VITALS: BP 102/72
[2020-09-03 05:44] LABS: BASO # 0.1 x10^3/uL (0.0-0.2); BASO % 1 % (0-3); EOS # 0.2 x10^3/uL (0.0-0.7); EOS % 3 % (0-3); HEMATOCRIT 40.3 % (39.0-53.0); HEMOGLOBIN 13.6 g/dL (13.0-17.5); LYMPH % 40 % (24-48); MEAN CORPUSCULAR HEMOGLOBIN 30 pg (25-35); MEAN CORPUSCULAR HGB CONC 34 g/dL (31-37); MEAN CORPUSCULAR VOLUME 89 fL (79-100); MONO # 0.5 x10^3/uL (0.0-1.1); MONO % 6 % (0-9); NEUT # 3.7 x10^3/uL (1.8-7.7); NEUT % 49 % (31-73); PLATELET COUNT 225 x10^3/uL (140-400); RED BLOOD COUNT 4.52 x10^6/uL (4.30-5.70); RED CELL DISTRIBUTION WIDTH 15.6 % (11.5-14.5); WHITE BLOOD COUNT 7.4 x10^3/uL (4.0-11.0)
[2020-09-03 05:51] LABS: ALBUMIN 2.9 g/dL (3.4-5.0); CHOLESTEROL/HDL RATIO 5.7; DIRECT BILIRUBIN 0.1 mg/dL (0.0-0.2); TOTAL BILIRUBIN 0.3 mg/dL (0.2-1.0); TOTAL PROTEIN 5.8 g/dL (6.4-8.2)
[2020-09-03 07:00] VITALS: BP 114/80
[2020-09-03] MEDS ORDERED: ASPIRIN ENTERIC COATED 81 MG TABLET.DR. PO SCH (08:00)
--- NOTE | 2020-09-03 08:03 | PDOC ---
[employer]GR[employer] NOTE Date of Service DOS: DATE: 09/03/20 TIME: 08:03 Chief Complaint Chief Complaint A/P: Unstable angina - pain better, acs ruled out, recent echo was done at , he was not called with results Paroxsymal afib - cont amio, metoprolol and xarelto. Should be on GI prophylaxis given he is also on antiplatelet agent CAD - cont meds. Hold off on ASA, no triple therapy tobacco use disorder obese, BMI 34 Right trapezius myofascial pain - cyclobenzaprine GERD - will place on 30 days of pantoprazole. He has outpatient GI f/u has not been able to reschedule due to out of network GI docs. History of Present Illness History of Present Illness Mr. Weller is a 45-year-old male with past medical history significant for coronary artery disease including recent [place] with stent placement who presents with a chief complaint of chest and back pain. some new dyspnea when pain happened. He had sudden sharp pain tohis back that radiated to his right jaw, He states occasionally has sharp substernal chest pain as well. Did try home nitroglycerin that did give some relief, he took 3 nitro and still had pain. Rates his pain is currently 0 out of 10. was 9/10 at home, 4/10 in ER. no nausea or sweating, but pain similar to acute pain for CAD 2 mos ago when stent placed, this is now 3rd admit in 3 mos. On his second admit he was noted in afib and at that time started on Amio and xarelto. States the pain occasionally rated to his right shoulder. . He has been taking all of his home medications including Xarelto. States nothing seems to exacerbate the symptoms except occasionally food and moving his right arm Troponin x3 negative. EKG NSR. Vitals/I&O Vitals/I&O: Vital Signs Date Time Temp Pulse Resp B/P (MAP) Pulse Ox O2 Delivery O2 Flow Rate FiO2 09/03/20 07:00 98.0 77 20 114/80 (91) 97 Room Air 98.0 I & O 09/02/20 09/02/20 09/03/20 15:00 23:00 07:00 Intake Total 340 ml Balance 340 ml Physical Exam General: Alert, Oriented X3, Cooperative, mild distress Heart: Regular rate Lungs: Clear Abdomen: Normal bowel sounds Extremities: No cyanosis, No edema, Normal pulses Skin: No rashes, No breakdown, No significant lesion Labs Labs: Laboratory Tests Test 09/03/20 03:30 09/03/20 05:00 White Blood Count 7.4 x10^3/uL (4.0-11.0) Red Blood Count 4.52 x10^6/uL (4.30-5.70) Hemoglobin 13.6 g/dL (13.0-17.5) Hematocrit 40.3 % (39.0-53.0) Mean Corpuscular Volume 89 fL (79-100) Mean Corpuscular Hemoglobin 30 pg (25-35) Mean Corpuscular Hemoglobin Concent 34 g/dL (31-37) Red Cell Distribution Width 15.6 % (11.5-14.5) Platelet Count 225 x10^3/uL (140-400) Neutrophils (%) (Auto) 49 % (31-73) Lymphocytes (%) (Auto) 40 % (24-48) Monocytes (%) (Auto) 6 % (0-9) Eosinophils (%) (Auto) 3 % (0-3) Basophils (%) (Auto) 1 % (0-3) Neutrophils # (Auto) 3.7 x10^3/uL (1.8-7.7) Lymphocytes # (Auto) 3.0 x10^3/uL (1.0-4.8) Monocytes # (Auto) 0.5 x10^3/uL (0.0-1.1) Eosinophils # (Auto) 0.2 x10^3/uL (0.0-0.7) Basophils # (Auto) 0.1 x10^3/uL (0.0-0.2) Total Bilirubin 0.3 mg/dL (0.2-1.0) Direct Bilirubin 0.1 mg/dL (0.0-0.2) Aspartate Amino Transf (AST/SGOT) 18 U/L (15-37) Alanine Aminotransferase (ALT/SGPT) 45 U/L (16-63) Alkaline Phosphatase 36 U/L (46-116) Total Protein 5.8 g/dL (6.4-8.2) Albumin 2.9 g/dL (3.4-5.0) Triglycerides Level 103 mg/dL (0-150) Cholesterol Level 136 mg/dL (0-200) LDL Cholesterol, Calculated 91 mg/dL (0-100) VLDL Cholesterol, Calculated 21 mg/dL (0-40) Non-HDL Cholesterol Calculated 112 mg/dL (0-129) HDL Cholesterol 24 mg/dL (40-60) Cholesterol/HDL Ratio 5.7 Assessment and Plan Assessmemt and Plan Problems Medical Problems: (1) CAD (coronary artery disease) Status: Acute (2) Hyperlipidemia Status: Acute (3) Hypertension Status: Acute (4) Unstable angina Status: Acute Comment Review of Relevant I have reviewed the following items shantel (where applicable) has been applied. Medications: Current Medications Medications (Trade) Dose Ordered Sig/Delvis Route PRN Reason Start Time Stop Time Status Last Admin Dose Admin Amiodarone HCl (Cordarone) 200 mg DAILY PO 09/02/20 09:00 09/02/20 11:05 Atorvastatin Calcium (Lipitor) 40 mg QHS PO 09/02/20 21:00 09/02/20 20:49 Lisinopril (Prinivil) 10 mg DAILY PO 09/02/20 09:00 09/02/20 11:05 Metoprolol Tartrate (Lopressor) 25 mg BID PO 09/02/20 09:00 09/02/20 20:49 Ticagrelor (Brilinta) 90 mg BID PO 09/02/20 09:00 09/02/20 20:49 Rivaroxaban (Xarelto) 20 mg DAILYWSUP PO 09/02/20 17:00 09/02/20 17:06 Cyclobenzaprine HCl (Flexeril) 10 mg PRN Q6HRS PRN PO MUSCLE SPASMS 09/02/20 11:45 09/02/20 17:06 Acetaminophen/ Hydrocodone Bitart (Lortab 5/325) 1 tab PRN Q4HRS PRN PO PAIN 09/02/20 11:45 09/02/20 20:49 Justifications for Admission Other Justification PHANI DUARTE MD Sep 03, 2020 08:03
[2020-09-03] MEDS: TICAGRELOR 90 MG TABLET. PO SCH (08:27)
[2020-09-03] MEDS: METOPROLOL TART IMMED RELEASE 25 MG TABLET. PO SCH (08:28)
[2020-09-03] MEDS: AMIODARONE HCL 200 MG TABLET. PO SCH (08:28)
[2020-09-03 08:29] VITALS: BP 114/80
[2020-09-03] MEDS: LISINOPRIL 10 MG TABLET PO SCH (08:29)
[2020-09-03] MEDS ORDERED: PANT40TA77 PO (10:31)
[2020-09-03] MEDS ORDERED: CYCL10TA2 PO (10:31)
--- NOTE | 2020-09-03 10:40 | PDOC3 ---
Discharge Summary Visit Information Date of Admission: Sep 02, 2020 Date of Discharge: Sep 03, 2020 Admitting Diagnosis: Unstable angina Final Diagnosis Problems Medical Problems: (1) CAD (coronary artery disease) Status: Acute (2) Hyperlipidemia Status: Acute (3) Hypertension Status: Acute (4) Unstable angina Status: Acute Brief Hospital Course Allergies Allergies Coded Allergies Type Severity Reaction Last Updated Verified Penicillins Allergy Intermediate hives/rash/swelling 07/13/20 Yes Vital Signs Vital Signs Date Time Temp Pulse Resp B/P (MAP) Pulse Ox O2 Delivery O2 Flow Rate FiO2 09/03/20 08:29 77 114/80 09/03/20 08:00 Room Air 09/03/20 07:00 98.0 20 97 98.0 Lab Results Laboratory Tests Test 09/01/20 23:11 09/02/20 03:30 09/02/20 07:00 09/03/20 03:30 White Blood Count 11.3 x10^3/uL (4.0-11.0) 7.4 x10^3/uL (4.0-11.0) Red Blood Count 5.10 x10^6/uL (4.30-5.70) 4.52 x10^6/uL (4.30-5.70) Hemoglobin 15.8 g/dL (13.0-17.5) 13.6 g/dL (13.0-17.5) Hematocrit 45.2 % (39.0-53.0) 40.3 % (39.0-53.0) Mean Corpuscular Volume 89 fL (79-100) 89 fL (79-100) Mean Corpuscular Hemoglobin 31 pg (25-35) 30 pg (25-35) Mean Corpuscular Hemoglobin Concent 35 g/dL (31-37) 34 g/dL (31-37) Red Cell Distribution Width 15.4 % (11.5-14.5) 15.6 % (11.5-14.5) Platelet Count 284 x10^3/uL (140-400) 225 x10^3/uL (140-400) Neutrophils (%) (Auto) 63 % (31-73) 49 % (31-73) Lymphocytes (%) (Auto) 27 % (24-48) 40 % (24-48) Monocytes (%) (Auto) 7 % (0-9) 6 % (0-9) Eosinophils (%) (Auto) 2 % (0-3) 3 % (0-3) Basophils (%) (Auto) 1 % (0-3) 1 % (0-3) Neutrophils # (Auto) 7.1 x10^3/uL (1.8-7.7) 3.7 x10^3/uL (1.8-7.7) Lymphocytes # (Auto) 3.1 x10^3/uL (1.0-4.8) 3.0 x10^3/uL (1.0-4.8) Monocytes # (Auto) 0.8 x10^3/uL (0.0-1.1) 0.5 x10^3/uL (0.0-1.1) Eosinophils # (Auto) 0.3 x10^3/uL (0.0-0.7) 0.2 x10^3/uL (0.0-0.7) Basophils # (Auto) 0.1 x10^3/uL (0.0-0.2) 0.1 x10^3/uL (0.0-0.2) Sodium Level 138 mmol/L (136-145) Potassium Level 3.7 mmol/L (3.5-5.1) Chloride Level 102 mmol/L (98-107) Carbon Dioxide Level 30 mmol/L (21-32) Anion Gap 6 (6-14) Blood Urea Nitrogen 18 mg/dL (8-26) Creatinine 1.2 mg/dL (0.7-1.3) Estimated GFR (Cockcroft-Gault) 64.9 Glucose Level 118 mg/dL (70-99) Calcium Level 9.1 mg/dL (8.5-10.1) Troponin I Quantitative < 0.017 ng/mL (0.000-0.055) 0.018 ng/mL (0.000-0.055) < 0.017 ng/mL (0.000-0.055) VU-[id number]-[id number]-Type Natriuretic Peptide 230 pg/mL (0-124) Test 09/03/20 05:00 Total Bilirubin 0.3 mg/dL (0.2-1.0) Direct Bilirubin 0.1 mg/dL (0.0-0.2) Aspartate Amino Transf (AST/SGOT) 18 U/L (15-37) Alanine Aminotransferase (ALT/SGPT) 45 U/L (16-63) Alkaline Phosphatase 36 U/L (46-116) Total Protein 5.8 g/dL (6.4-8.2) Albumin 2.9 g/dL (3.4-5.0) Triglycerides Level 103 mg/dL (0-150) Cholesterol Level 136 mg/dL (0-200) LDL Cholesterol, Calculated 91 mg/dL (0-100) VLDL Cholesterol, Calculated 21 mg/dL (0-40) Non-HDL Cholesterol Calculated 112 mg/dL (0-129) HDL Cholesterol 24 mg/dL (40-60) Cholesterol/HDL Ratio 5.7 Laboratory Tests Test 09/03/20 03:30 09/03/20 05:00 White Blood Count 7.4 x10^3/uL (4.0-11.0) Red Blood Count 4.52 x10^6/uL (4.30-5.70) Hemoglobin 13.6 g/dL (13.0-17.5) Hematocrit 40.3 % (39.0-53.0) Mean Corpuscular Volume 89 fL (79-100) Mean Corpuscular Hemoglobin 30 pg (25-35) Mean Corpuscular Hemoglobin Concent 34 g/dL (31-37) Red Cell Distribution Width 15.6 % (11.5-14.5) Platelet Count 225 x10^3/uL (140-400) Neutrophils (%) (Auto) 49 % (31-73) Lymphocytes (%) (Auto) 40 % (24-48) Monocytes (%) (Auto) 6 % (0-9) Eosinophils (%) (Auto) 3 % (0-3) Basophils (%) (Auto) 1 % (0-3) Neutrophils # (Auto) 3.7 x10^3/uL (1.8-7.7) Lymphocytes # (Auto) 3.0 x10^3/uL (1.0-4.8) Monocytes # (Auto) 0.5 x10^3/uL (0.0-1.1) Eosinophils # (Auto) 0.2 x10^3/uL (0.0-0.7) Basophils # (Auto) 0.1 x10^3/uL (0.0-0.2) Total Bilirubin 0.3 mg/dL (0.2-1.0) Direct Bilirubin 0.1 mg/dL (0.0-0.2) Aspartate Amino Transf (AST/SGOT) 18 U/L (15-37) Alanine Aminotransferase (ALT/SGPT) 45 U/L (16-63) Alkaline Phosphatase 36 U/L (46-116) Total Protein 5.8 g/dL (6.4-8.2) Albumin 2.9 g/dL (3.4-5.0) Triglycerides Level 103 mg/dL (0-150) Cholesterol Level 136 mg/dL (0-200) LDL Cholesterol, Calculated 91 mg/dL (0-100) VLDL Cholesterol, Calculated 21 mg/dL (0-40) Non-HDL Cholesterol Calculated 112 mg/dL (0-129) HDL Cholesterol 24 mg/dL (40-60) Cholesterol/HDL Ratio 5.7 Brief Hospital Course Mr. Weller is a 45-year-old male with past medical history significant for coronary artery disease including recent [place] with stent placement who presents with a chief complaint of chest and back pain. some new dyspnea when pain happened. He had sudden sharp pain tohis back that radiated to his right jaw, He states occasionally has sharp substernal chest pain as well. Did try home nitroglycerin that did give some relief, he took 3 nitro and still had pain. Rates his pain is currently 0 out of 10. was 9/10 at home, 4/10 in ER. no nausea or sweating, but pain similar to acute pain for CAD 2 mos ago when stent placed, this is now 3rd admit in 3 mos. On his second admit he was noted in afib and at that time started on Amio and xarelto. States the pain occasionally rated to his right shoulder. . He has been taking all of his home medications including Xarelto. States nothing seems to exacerbate the symptoms except occasionally food and moving his right arm Troponin x3 negative. EKG NSR. Consults: Cardiology Problem list: Unstable angina - pain better, acs ruled out, recent echo was done at , he was not called with results Paroxsymal afib - cont amio, metoprolol and xarelto. Should be on GI prophylaxis given he is also on antiplatelet agent CAD - cont meds. Hold off on ASA, no triple therapy tobacco use disorder obese, BMI 34 Right trapezius myofascial pain - cyclobenzaprine GERD - will place on 30 days of pantoprazole. He has outpatient GI f/u has not been able to reschedule due to out of network GI docs. Greater than 30 minutes spent on d/c home with self care. Discharge Information Condition at Discharge: Improved Follow Up: Weeks (1) Disposition/Orders: D/C to Home Scheduled Amiodarone Hcl (Amiodarone Hcl) 200 Mg Tablet, 200 MG PO DAILY for afib, (Reported) Entered as Reported by: LANDEN MORALES RN on 07/18/20 1438 Last Action: Continued on 09/02/20820 by KASIA RUCKER Atorvastatin Calcium (Lipitor) 40 Mg Tablet, 1 TAB PO QHS for radha, #90 Ref 3 (Reported) Entered as Reported by: LANDEN MORALES RN on 07/18/20 1437 Last Action: Continued on 09/02/20820 by KASIA RUCKER Lisinopril (Lisinopril) 10 Mg Tablet, 1 TAB PO DAILY for htn, #30 Ref 5 (Reported) Entered as Reported by: MEDINA MARQUIS RN on 09/02/20 0356 Last Action: Continued on 09/02/20820 by KASIA RUCKER Metoprolol Tartrate (Metoprolol Tartrate) 25 Mg Tablet, 1 TAB PO BID for heart rate, #180 Ref 1 (Reported) Entered as Reported by: LANDEN MORALES RN on 07/18/20 143 Last Action: Continued on 09/02/20820 by KASIA RUCKER Pantoprazole Sodium (Pantoprazole Sodium ) 40 Mg Tablet.dr, 40 MG PO DAILYAC for GERD for 30 Days, #30 Prescribed by: PHANI DUARTE MD on 09/03/20 1031 Rivaroxaban (Xarelto) 20 Mg Tablet, 1 TAB PO DAILY for blood thinner for 30 Days, #30 Ref 0 (Reported) with food Entered as Reported by: LANDEN MORALES RN on 07/18/20 1436 Last Action: Converted on 09/02/20820 by KASIA RUCKER Ticagrelor (Brilinta) 90 Mg Tablet, 90 MG PO BID for afib, (Reported) Entered as Reported by: LANDEN MORALES RN on 07/18/20 1436 Last Action: Continued on 09/02/20 0821 by KASIA RUCKER Scheduled PRN Cyclobenzaprine Hcl (Cyclobenzaprine Hcl) 10 Mg Tablet, 10 MG PO PRN Q6HRS PRN for MUSCLE SPASMS for 10 Days, #30 Prescribed by: PHANI DUARTE MD on 09/03/20 1031 Discontinued Medications Clindamycin Hcl (Clindamycin Hcl) 300 Mg Capsule, 300 MG PO TID for tooth infection, (Reported) Entered as Reported by: LANDEN MORALES RN on 08/09/20 1221 Last Action: Discontinued on 09/02/20355 by MEDINA MARQUIS RN Nicotine (NICODERM CQ 14mg) 1 Each Patch.td24, 1 PATCH TP DAILY for smoking cessation, #14 (Reported) Entered as Reported by: LANDEN MORALES RN on 07/18/20 1439 Last Action: Discontinued on 09/02/20355 by MEDINA MARQUIS RN Justicifation of Admission Dx: Justifications for Admission: Justification of Admission Dx: Yes MS: Acute STEMI PHANI DUARTE MD Sep 03, 2020 10:40
--- NOTE | 2020-09-03 14:08 | EKG ---
[facility] [address] [place] [address] Test Date: 2020-09-01 Test Time: 23:05:38 Pat Name: CONRAD TRAN Department: Room: Gender: M Ring Sorter: : 1975 Requested By: RUPA BILLINGSLEY Order Number: [id number] Reading MD: Measurements Intervals [place] Rate: 101 P: 41 HI: 146 QRS: 15 QRSD: 90 T: 3 QT: 362 QTc: 470 Interpretive Statements SINUS TACHYCARDIA LEFT ATRIAL ABNORMALITY QRS(T) CONTOUR ABNORMALITY CONSISTENT WITH INFERIOR INFARCT PROBABLY OLD ABNORMAL ECG RI6.02 No previous ECG available for comparison
--- NOTE | 2020-09-03 14:14 | PDOC ---
PROGRESS NOTES Date of Service DATE: 09/03/20 TIME: 14:12 Subjective Subjective Patient seen and examined Objective Objective Vital Signs Date Time Temp Pulse Resp B/P (MAP) Pulse Ox O2 Delivery O2 Flow Rate FiO2 09/03/20 08:29 77 114/80 09/03/20 08:00 Room Air 09/03/20 07:00 98.0 20 97 98.0 Intake and Output 09/03/20 07:00 Intake Total 340 ml Balance 340 ml Intake Oral 340 ml # Voids 1 Physical Exam Abdomen: Normal bowel sounds Heart: Regular rate General: No acute distress Lungs: Clear to auscultation Assessment Assessment Problems Medical Problems: (1) CAD (coronary artery disease) Status: Acute (2) Hyperlipidemia Status: Acute (3) Hypertension Status: Acute (4) Unstable angina Status: Acute 1. Chest pain with a history of coronary artery disease and relatively recent intervention as above. Patient had no acute ST changes on his EKG. Troponins have been normal x3. Overnight the patient has been feeling well. He denies any chest pain. We will continue baseline medications including antiplatelet medications and anticoagulation. We will arrange a follow-up by phone in the morning. Recent echo at . 2. Hypertension. Blood pressure is under control. Continue to monitor. 3. Hyperlipidemia. Will continue statin medications. 4. Tobacco abuse. Counseled the patient on discontinuing smoking. Comment Review of Relevant I have reviewed the following items shantel (where applicable) has been applied. Labs Laboratory Tests Test 09/01/20 23:11 09/02/20 03:30 09/02/20 07:00 09/03/20 03:30 White Blood Count 11.3 x10^3/uL (4.0-11.0) 7.4 x10^3/uL (4.0-11.0) Red Blood Count 5.10 x10^6/uL (4.30-5.70) 4.52 x10^6/uL (4.30-5.70) Hemoglobin 15.8 g/dL (13.0-17.5) 13.6 g/dL (13.0-17.5) Hematocrit 45.2 % (39.0-53.0) 40.3 % (39.0-53.0) Mean Corpuscular Volume 89 fL (79-100) 89 fL (79-100) Mean Corpuscular Hemoglobin 31 pg (25-35) 30 pg (25-35) Mean Corpuscular Hemoglobin Concent 35 g/dL (31-37) 34 g/dL (31-37) Red Cell Distribution Width 15.4 % (11.5-14.5) 15.6 % (11.5-14.5) Platelet Count 284 x10^3/uL (140-400) 225 x10^3/uL (140-400) Neutrophils (%) (Auto) 63 % (31-73) 49 % (31-73) Lymphocytes (%) (Auto) 27 % (24-48) 40 % (24-48) Monocytes (%) (Auto) 7 % (0-9) 6 % (0-9) Eosinophils (%) (Auto) 2 % (0-3) 3 % (0-3) Basophils (%) (Auto) 1 % (0-3) 1 % (0-3) Neutrophils # (Auto) 7.1 x10^3/uL (1.8-7.7) 3.7 x10^3/uL (1.8-7.7) Lymphocytes # (Auto) 3.1 x10^3/uL (1.0-4.8) 3.0 x10^3/uL (1.0-4.8) Monocytes # (Auto) 0.8 x10^3/uL (0.0-1.1) 0.5 x10^3/uL (0.0-1.1) Eosinophils # (Auto) 0.3 x10^3/uL (0.0-0.7) 0.2 x10^3/uL (0.0-0.7) Basophils # (Auto) 0.1 x10^3/uL (0.0-0.2) 0.1 x10^3/uL (0.0-0.2) Sodium Level 138 mmol/L (136-145) Potassium Level 3.7 mmol/L (3.5-5.1) Chloride Level 102 mmol/L (98-107) Carbon Dioxide Level 30 mmol/L (21-32) Anion Gap 6 (6-14) Blood Urea Nitrogen 18 mg/dL (8-26) Creatinine 1.2 mg/dL (0.7-1.3) Estimated GFR (Cockcroft-Gault) 64.9 Glucose Level 118 mg/dL (70-99) Calcium Level 9.1 mg/dL (8.5-10.1) Troponin I Quantitative < 0.017 ng/mL (0.000-0.055) 0.018 ng/mL (0.000-0.055) < 0.017 ng/mL (0.000-0.055) EA-Fhe-L-Type Natriuretic Peptide 230 pg/mL (0-124) Test 09/03/20 05:00 Total Bilirubin 0.3 mg/dL (0.2-1.0) Direct Bilirubin 0.1 mg/dL (0.0-0.2) Aspartate Amino Transf (AST/SGOT) 18 U/L (15-37) Alanine Aminotransferase (ALT/SGPT) 45 U/L (16-63) Alkaline Phosphatase 36 U/L (46-116) Total Protein 5.8 g/dL (6.4-8.2) Albumin 2.9 g/dL (3.4-5.0) Triglycerides Level 103 mg/dL (0-150) Cholesterol Level 136 mg/dL (0-200) LDL Cholesterol, Calculated 91 mg/dL (0-100) VLDL Cholesterol, Calculated 21 mg/dL (0-40) Non-HDL Cholesterol Calculated 112 mg/dL (0-129) HDL Cholesterol 24 mg/dL (40-60) Cholesterol/HDL Ratio 5.7 Laboratory Tests Test 09/03/20 03:30 09/03/20 05:00 White Blood Count 7.4 x10^3/uL (4.0-11.0) Red Blood Count 4.52 x10^6/uL (4.30-5.70) Hemoglobin 13.6 g/dL (13.0-17.5) Hematocrit 40.3 % (39.0-53.0) Mean Corpuscular Volume 89 fL (79-100) Mean Corpuscular Hemoglobin 30 pg (25-35) Mean Corpuscular Hemoglobin Concent 34 g/dL (31-37) Red Cell Distribution Width 15.6 % (11.5-14.5) Platelet Count 225 x10^3/uL (140-400) Neutrophils (%) (Auto) 49 % (31-73) Lymphocytes (%) (Auto) 40 % (24-48) Monocytes (%) (Auto) 6 % (0-9) Eosinophils (%) (Auto) 3 % (0-3) Basophils (%) (Auto) 1 % (0-3) Neutrophils # (Auto) 3.7 x10^3/uL (1.8-7.7) Lymphocytes # (Auto) 3.0 x10^3/uL (1.0-4.8) Monocytes # (Auto) 0.5 x10^3/uL (0.0-1.1) Eosinophils # (Auto) 0.2 x10^3/uL (0.0-0.7) Basophils # (Auto) 0.1 x10^3/uL (0.0-0.2) Total Bilirubin 0.3 mg/dL (0.2-1.0) Direct Bilirubin 0.1 mg/dL (0.0-0.2) Aspartate Amino Transf (AST/SGOT) 18 U/L (15-37) Alanine Aminotransferase (ALT/SGPT) 45 U/L (16-63) Alkaline Phosphatase 36 U/L (46-116) Total Protein 5.8 g/dL (6.4-8.2) Albumin 2.9 g/dL (3.4-5.0) Triglycerides Level 103 mg/dL (0-150) Cholesterol Level 136 mg/dL (0-200) LDL Cholesterol, Calculated 91 mg/dL (0-100) VLDL Cholesterol, Calculated 21 mg/dL (0-40) Non-HDL Cholesterol Calculated 112 mg/dL (0-129) HDL Cholesterol 24 mg/dL (40-60) Cholesterol/HDL Ratio 5.7 Medications Current Medications Nitroglycerin (Nitrostat) 0.4 mg PRN Q5MIN PRN SL CHEST PAIN Last administered on 09/01/20at 23:24; Start 09/01/20 at 23:15; Stop 09/03/20 at 13:37; Status DC Iohexol (Omnipaque 350 Mg/ml) 100 ml 1X ONCE IV Last administered on 09/02/20at 00:23; Start 09/02/20 at 00:00; Stop 09/02/20 at 00:33; Status DC Info (CONTRAST GIVEN -- Rx MONITORING) 1 each PRN DAILY PRN MC SEE COMMENTS; Start 09/02/20 at 00:15; Stop 09/03/20 at 13:37; Status DC Aspirin (Aspirin Chewable) 324 mg 1X ONCE PO Last administered on 09/02/20at 01:30; Start 09/02/20 at 01:15; Stop 09/02/20 at 01:16; Status DC Fentanyl Citrate (Fentanyl 2ml Vial) 50 mcg 1X ONCE IVP Last administered on 09/02/20at 01:30; Start 09/02/20 at 01:15; Stop 09/02/20 at 01:16; Status DC Ondansetron HCl (Zofran) 4 mg PRN Q8HRS PRN IV NAUSEA/VOMITING Last administered on 09/02/20at 01:30; Start 09/02/20 at 01:00; Stop 09/03/20 at 00:59; Status DC Morphine Sulfate (Morphine Sulfate) 4 mg PRN Q2HR PRN IV PAIN; Start 09/02/20 at 01:00; Stop 09/03/20 at 00:59; Status DC Amiodarone HCl (Cordarone) 200 mg DAILY PO Last administered on 09/03/20at 08:28; Start 09/02/20 at 09:00; Stop 09/03/20 at 13:37; Status DC Atorvastatin Calcium (Lipitor) 40 mg QHS PO Last administered on 09/02/20at 20:49; Start 09/02/20 at 21:00; Stop 09/03/20 at 13:37; Status DC Lisinopril (Prinivil) 10 mg DAILY PO Last administered on 09/03/20at 08:29; Start 09/02/20 at 09:00; Stop 09/03/20 at 13:37; Status DC Metoprolol Tartrate (Lopressor) 25 mg BID PO Last administered on 09/03/20at 08:28; Start 09/02/20 at 09:00; Stop 09/03/20 at 13:37; Status DC Ticagrelor (Brilinta) 90 mg BID PO Last administered on 09/03/20at 08:27; Start 09/02/20 at 09:00; Stop 09/03/20 at 13:37; Status DC Rivaroxaban (Xarelto) 20 mg DAILYWSUP PO Last administered on 09/02/20at 17:06; Start 09/02/20 at 17:00; Stop 09/03/20 at 13:37; Status DC Cyclobenzaprine HCl (Flexeril) 10 mg PRN Q6HRS PRN PO MUSCLE SPASMS Last administered on 09/02/20at 17:06; Start 09/02/20 at 11:45; Stop 09/03/20 at 13:37; Status DC Acetaminophen/ Hydrocodone Bitart (Lortab 5/325) 1 tab PRN Q4HRS PRN PO PAIN Last administered on 09/02/20at 20:49; Start 09/02/20 at 11:45; Stop 09/03/20 at 13:37; Status DC Aspirin (Ecotrin) 81 mg DAILYWBKFT PO ; Start 09/03/20 at 08:00; Stop 09/03/20 at 13:37; Status DC Active Scripts Active Pantoprazole Sodium (Pantoprazole Sodium) 40 Mg Tablet.dr 40 Mg PO DAILYAC 30 Days Cyclobenzaprine Hcl 10 Mg Tablet 10 Mg PO PRN Q6HRS PRN 10 Days Reported Lisinopril 10 Mg Tablet 1 Tab PO DAILY Metoprolol Tartrate 25 Mg Tablet 1 Tab PO BID Amiodarone Hcl 200 Mg Tablet 200 Mg PO DAILY Lipitor (Atorvastatin Calcium) 40 Mg Tablet 1 Tab PO QHS Brilinta (Ticagrelor) 90 Mg Tablet 90 Mg PO BID Xarelto (Rivaroxaban) 20 Mg Tablet 1 Tab PO DAILY 30 Days with food Vitals/I & O Vital Sign - Last 24 Hours 09/02/20 09/02/20 09/02/20 09/02/20 14:15 19:37 20:00 20:49 Temp 97.8 98.3 97.8 98.3 Pulse 79 77 77 Resp 18 18 B/P (MAP) 125/88 (100) 98/65 (76) 98/65 Pulse Ox 97 98 O2 Delivery Room Air Room Air Room Air 09/02/20 09/02/20 09/02/20 09/03/20 20:49 21:49 22:40 03:01 Temp 98.1 98.2 98.1 98.2 Pulse 72 83 Resp 16 18 16 19 B/P (MAP) 100/66 (77) 102/72 (82) Pulse Ox 98 99 99 99 O2 Delivery Room Air Room Air Room Air Room Air 09/03/20 09/03/20 09/03/20 09/03/20 07:00 08:00 08:28 08:28 Temp 98.0 98.0 Pulse 77 77 77 Resp 20 B/P (MAP) 114/80 (91) 114/80 114/80 Pulse Ox 97 O2 Delivery Room Air Room Air 09/03/20 08:29 Pulse 77 B/P (MAP) 114/80 Intake and Output 09/02/20 09/02/20 09/03/20 15:00 23:00 07:00 Intake Total 340 ml Balance 340 ml Justifications for Admission Other Justification KEANU RING MD Sep 03, 2020 14:14
== END 2020-09-03 11:35 | disposition home or self-care (01) | DRG 303 ==
LOC: ER 23:00 → 2 SOUTH 09-02 00:01 → CVICU 09-02 19:17
PROVIDERS: ADMIT Internal Medicine; ATTEND Internal Medicine
DX: I25.110 Atherosclerotic heart disease of native coronary artery with unstable angina pectoris (principal); E66.9 Obesity, unspecified; E78.00 Pure hypercholesterolemia, unspecified; E78.5 Hyperlipidemia, unspecified; F17.210 Nicotine dependence, cigarettes, uncomplicated; I11.0 Hypertensive heart disease with heart failure; I25.2 Old myocardial infarction; I48.0 Paroxysmal atrial fibrillation; I50.9 Heart failure, unspecified; K21.9 Gastro-esophageal reflux disease without esophagitis; Z68.34 Body mass index [BMI] 34.0-34.9, adult; Z82.49 Family history of ischemic heart disease and other diseases of the circulatory system; Z95.5 Presence of coronary angioplasty implant and graft; M19.90 Unspecified osteoarthritis, unspecified site; Z88.0 Allergy status to penicillin
CPT/HCPCS: 36415; 71045; 71275; 74174; 80048; 80061; 80076; 83880; 84484; 85025; 93005; J2405; J3010; Q9967; G0378

== ENCOUNTER 2021-04-11 16:47 | Inpatient (IN) | payer BC ==
[~2021-04-11] VITALS: Ht 175.3 cm; Wt 117.7 kg
[~2021-04-11 16:47] MED LIST changes: -CLIN300C8 PO; +CLIN300C9 PO; +CYCL10TA2 PO; +LISI10TA16 PO; +PANT40TA77 PO
--- NOTE | 2021-04-11 16:56 | PHYS DOC ---
Past Medical History Past Medical History: CAD, High Cholesterol, Hypertension, DC Additional Past Medical Histor: STENT, ANGIO Past Surgical History: Angioplasty, Other Additional Past Surgical Histo: CARDIAC STENT Smoking Status: Current Every Day Smoker Alcohol Use: None Drug Use: None General Adult EDM: Chief Complaint: CHEST PAIN HPI: HPI: Patient is a 46 year old male who presented to ER due to substernal chest pain that started 2 hours ago. Patient described the pain is heaviness and pressure in nature. Patient has history of coronary artery disease, had multiple stents placed. Patient denies any cough or fever, no abdominal pain, no nausea vomiting. Review of Systems: Review of Systems: Constitutional: Denies fever or chills. [] Eyes: Denies change in visual acuity. [] HENT: Denies nasal congestion or sore throat. [] Respiratory: Denies cough or shortness of breath. [] Cardiovascular: Positive for chest pain, no edema GI: Denies abdominal pain, nausea, vomiting, bloody stools or diarrhea. [] : Denies dysuria. [] Musculoskeletal: Denies back pain or joint pain. [] Integument: Denies rash. [] Neurologic: Denies headache, focal weakness or sensory changes. [] Endocrine: Denies polyuria or polydipsia. [] Lymphatic: Denies swollen glands. [] Psychiatric: Denies depression or anxiety. [] Heart Score: C/O Chest Pain: Yes HEART Score for Chest Pain: HEART Score for Chest Pain Response (Comments) Value History Moderately Suspicious 1 Age >45 - < 65 1 Risk Factors >3 Risk Factors or Hx CAD 2 Troponin < Normal Limit 0 Total 4 Risk Factors: Risk Factors: DM, Current or recent (<one month) smoker, HTN, HLP, family history of CAD, obesity. Risk Scores: Score 0 - 3: 2.5% MACE over next 6 weeks - Discharge Home Score 4 - 6: 20.3% MACE over next 6 weeks - Admit for Clinical Observation Score 7 - 10: 72.7% MACE over next 6 weeks - Early Invasive Strategies Allergies: Allergies: Allergies Coded Allergies Type Severity Reaction Last Updated Verified Penicillins Allergy Intermediate hives/rash/swelling 07/13/20 Yes Physical Exam: PE: Constitutional: Well developed, well nourished, no acute distress, non-toxic appearance. [] HENT: Normocephalic, atraumatic, bilateral external ears normal, oropharynx moist, no oral exudates, nose normal. [] Eyes: PERRLA, EOMI, conjunctiva normal, no discharge. [] Neck: Normal range of motion, no tenderness, supple, no stridor. [] Cardiovascular:Heart rate regular rhythm, no murmur [] Lungs & Thorax: Bilateral breath sounds clear to auscultation [] Abdomen: Bowel sounds normal, soft, no tenderness, no masses, no pulsatile masses. [] Skin: Warm, dry, no erythema, no rash. [] Back: No tenderness, no CVA tenderness. [] Extremities: No tenderness, no cyanosis, no clubbing, ROM intact, no edema. [] Neurologic: Alert and oriented X 3, normal motor function, normal sensory function, no focal deficits noted. [] Psychologic: Affect normal, judgement normal, mood normal. [] Current Patient Data: Labs: Laboratory Tests Test 04/11/21 17:09 04/11/21 17:40 White Blood Count 11.0 x10^3/uL Red Blood Count 4.83 x10^6/uL Hemoglobin 14.5 g/dL Hematocrit 43.3 % Mean Corpuscular Volume 90 fL Mean Corpuscular Hemoglobin 30 pg Mean Corpuscular Hemoglobin Concent 34 g/dL Red Cell Distribution Width 15.4 % Platelet Count 256 x10^3/uL Neutrophils (%) (Auto) 66 % Lymphocytes (%) (Auto) 26 % Monocytes (%) (Auto) 6 % Eosinophils (%) (Auto) 1 % Basophils (%) (Auto) 1 % Neutrophils # (Auto) 7.2 x10^3/uL Lymphocytes # (Auto) 2.8 x10^3/uL Monocytes # (Auto) 0.6 x10^3/uL Eosinophils # (Auto) 0.2 x10^3/uL Basophils # (Auto) 0.1 x10^3/uL Sodium Level 143 mmol/L Potassium Level 4.9 mmol/L Chloride Level 105 mmol/L Carbon Dioxide Level 31 mmol/L Anion Gap 7 Blood Urea Nitrogen 15 mg/dL Creatinine 1.0 mg/dL Estimated GFR (Cockcroft-Gault) 79.8 BUN/Creatinine Ratio 15 Glucose Level 219 mg/dL Calcium Level 8.6 mg/dL Magnesium Level 2.0 mg/dL Total Bilirubin 0.3 mg/dL Aspartate Amino Transf (AST/SGOT) 15 U/L Alanine Aminotransferase (ALT/SGPT) 34 U/L Alkaline Phosphatase 43 U/L Troponin I Quantitative < 0.017 ng/mL [id number]-H-Type Natriuretic Peptide 117 pg/mL Total Protein 6.7 g/dL Albumin 3.3 g/dL Albumin/Globulin Ratio 1.0 Lipase 65 U/L EKG: EKG: EKG did not show ST segment elevation. Radiology/Procedures: Radiology/Procedures: [][facility] [address] [place] [address] IMAGING REPORT Signed PATIENT: CONRAD TRAN ACCOUNT: [id number] : 1975 LOCATION: ER AGE: 46 SEX: M EXAM STATUS: REG ER ORD. PHYSICIAN: SAURABH UNGER DO REASON: chest pain PROCEDURE: PORTABLE CHEST 1V XR CHEST 1V History: Reason: chest pain / Spl. Instructions: / History: Comparison: September 01, 2020 Findings: No consolidation or pleural effusion. Normal heart size. No pneumothorax. Impression: 1. No acute cardiopulmonary process. Electronically signed by: Joey Marie DO (04/11/2021 5:37 PM) [facility] DICTATED and SIGNED BY: JOEY MARIE DO DATE: 04/11/21 [id number] 0 Course & Med Decision Making: Course & Med Decision Making Pertinent Labs and Imaging studies reviewed. (See chart for details) Patient is a 46-year-old male who present to ER due to substernal chest pain started few hours ago, EKG and cardiac enzymes normal so far. Patient be admitted to hospital for further evaluation and treatment, discussed with the hospitalist on-call Dr. Roberson who agreed to admit the patient. David Disclaimer: David Disclaimer: This electronic medical record was generated, in whole or in part, using a voice recognition dictation system. Departure Departure Impression: Primary Impression: Chest pain Disposition: ADMITTED INPATIENT Condition: STABLE Referrals: LADY FERNANDES (PCP) SAURABH UNGER DO Apr 11, 2021 16:56
[2021-04-11 17:17] LABS: HEMATOCRIT 43.3 % (39.0-53.0); HEMOGLOBIN 14.5 g/dL (13.0-17.5); MEAN CORPUSCULAR HEMOGLOBIN 30 pg (25-35); MEAN CORPUSCULAR HGB CONC 34 g/dL (31-37); MEAN CORPUSCULAR VOLUME 90 fL (79-100); RED BLOOD COUNT 4.83 x10^6/uL (4.30-5.70); RED CELL DISTRIBUTION WIDTH 15.4 % (11.5-14.5)
[2021-04-11 17:18] LABS: BASO # 0.1 x10^3/uL (0.0-0.2); BASO % 1 % (0-3); EOS # 0.2 x10^3/uL (0.0-0.7); EOS % 1 % (0-3); LYMPH # 2.8 x10^3/uL (1.0-4.8); LYMPH % 26 % (24-48); MONO # 0.6 x10^3/uL (0.0-1.1); MONO % 6 % (0-9); NEUT # 7.2 x10^3/uL (1.8-7.7); NEUT % 66 % (31-73); PLATELET COUNT 256 x10^3/uL (140-400)
--- NOTE | 2021-04-11 17:39 | RAD ---
XR CHEST 1V History: Reason: chest pain / Spl. Instructions: / History: Comparison: September 01, 2020 Findings: No consolidation or pleural effusion. Normal heart size. No pneumothorax. Impression: 1. No acute cardiopulmonary process. Electronically signed by: Joey Marie DO (04/11/2021 5:37 PM) [facility]
[2021-04-11 18:09] LABS: CALCIUM 8.6 mg/dL (8.5-10.1); GFR 79.8; POTASSIUM 4.9 mmol/L (3.5-5.1)
[2021-04-11 18:15] LABS: ALBUMIN 3.3 g/dL (3.4-5.0); TOTAL BILIRUBIN 0.3 mg/dL (0.2-1.0); TOTAL PROTEIN 6.7 g/dL (6.4-8.2)
[2021-04-11 20:00] VITALS: BP 119/88
[2021-04-11 20:15] VITALS: BP 111/78
[2021-04-11 20:30] VITALS: BP 99/72
--- NOTE | 2021-04-11 20:30 | NUR ---
Patient admitted to room 114 as CVC status. Patient is AOX4, oriented to room surroundings and call light. Patient states chest pain is tolerable, rates it a 2/10. Home medication list updated. Admission questions completed. Dr. Roberson called regarding admission, gave okay to restart home medications. Patient agrees with POC and is resting comfortably at this time.
[2021-04-11 20:45] VITALS: BP 98/77
[2021-04-11] MEDS ORDERED: LIPITOR80 MG PO (21:50)
[2021-04-11] MEDS ORDERED: ISOS60TA55 PO (21:50)
[2021-04-11] MEDS ORDERED: METF500T16 PO (21:50)
[2021-04-11] MEDS ORDERED: ASPI-630 PO (21:50)
[2021-04-11] MEDS ORDERED: RANO500T2 PO (21:50)
[2021-04-11] MEDS ORDERED: EZET10TA20 PO (21:50)
[2021-04-11] MEDS ORDERED: ALBU2.5V14 NEB (21:50)
[2021-04-11] MEDS ORDERED: HYDR25TA PO (21:50)
[2021-04-11] MEDS ORDERED: SPIR25TA5 PO (21:50)
[2021-04-11] MEDS ORDERED: TRAM50TA PO (21:50)
[2021-04-11] MEDS ORDERED: NITR0.4T24 SL (21:50)
[2021-04-11] MEDS ORDERED: METO50TA6 PO (21:50)
[2021-04-11] MEDS ORDERED: CYCLOBENZAPRINE 10 MG TABLET. PO PRN (22:00)
[2021-04-11] MEDS ORDERED: NITROGLYCERIN SUBLINGUAL 0.4 MG BOTTLE OF 25. SL PRN (22:00)
[2021-04-11] MEDS ORDERED: traMADol 50 MG TABLET PO PRN (22:00)
[2021-04-11] MEDS ORDERED: ATORVASTATIN CALCIUM 40 MG TABLET. PO SCH (22:12)
[2021-04-11] MEDS ORDERED: ALBUTEROL SULFATE 2.5 MG/3 ML NEBU. NEB PRN (22:15)
[2021-04-11] MEDS ORDERED: metFORMIN 500 MG TABLET PO SCH (22:30)
[2021-04-11] MEDS ORDERED: hydrOXYzine 25 MG TABLET PO SCH (22:30)
[2021-04-11 23:00] VITALS: BP 105/74
[2021-04-11] MEDS ORDERED: CLOP75TA PO (23:20)
[2021-04-12 03:00] VITALS: BP 129/88
[2021-04-12 06:12] LABS: HEMATOCRIT 41.8 % (39.0-53.0); HEMOGLOBIN 13.8 g/dL (13.0-17.5); RED BLOOD COUNT 4.67 x10^6/uL (4.30-5.70); RED CELL DISTRIBUTION WIDTH 15.1 % (11.5-14.5); WHITE BLOOD COUNT 8.5 x10^3/uL (4.0-11.0)
--- NOTE | 2021-04-12 06:25 | EKG ---
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
[2021-04-12 06:27] LABS: CALCIUM 8.7 mg/dL (8.5-10.1); CREATININE 0.9 mg/dL (0.7-1.3); GFR 90.1; POTASSIUM 4.5 mmol/L (3.5-5.1)
--- NOTE | 2021-04-12 06:27 | EKG ---
[facility] [address] [place] [address] Test Date: 2021-04-11 Test Time: 16:55:09 Pat Name: CONRAD TRAN Department: Room: 114 1 Gender: M Imager: : 1975 Requested By: SAURABH UNGER Order Number: [id number] Reading MD: Pedro Salinas MD Measurements Intervals [place] Rate: 90 P: 49 UT: 144 QRS: 10 QRSD: 88 T: 23 QT: 378 QTc: 467 Interpretive Statements SINUS RHYTHM QRS(T) CONTOUR ABNORMALITY CONSISTENT WITH INFERIOR INFARCT PROBABLY OLD ABNORMAL ECG Electronically Signed On 04-12-2021 11:54:34 CDT by Pedro Salinas MD
--- NOTE | 2021-04-12 06:38 | EKG ---
[facility] [address] [place] [address] Test Date: 2021-04-11 Test Time: 16:53:09 Pat Name: CONRAD TRAN Department: Room: 114 1 Gender: M Av Specialist: : 1975 Requested By: LILLY PEÑA Order Number: [id number] Reading MD: Pedro Salinas MD Measurements Intervals [place] Rate: 91 P: 49 IA: 142 QRS: 17 QRSD: 88 T: 31 QT: 368 QTc: 454 Interpretive Statements SINUS RHYTHM QRS(T) CONTOUR ABNORMALITY CONSISTENT WITH INFERIOR INFARCT PROBABLY OLD ABNORMAL ECG Electronically Signed On 04-12-2021 11:54:13 CDT by Pedro Salinas MD
[2021-04-12 07:00] VITALS: BP 131/79
--- NOTE | 2021-04-12 07:12 | PDOC1 ---
History and Physical Date of Admission Date of Admission DATE: 04/12/21 TIME: 07:09 Identification/Chief Complaint Chief Complaint Chest pain Source Source: Patient History of Present Illness History of Present Illness Mr Weller is a 46 year old male w/ PMHx CAD s/p stenting to RCA, afib on xarelto, GERD on PPI, HLD, HTN, smoker who presented to ER due to substernal chest pain that started 2 hours prior to coming to ED around 1pm, had breakfast at 10am while at work. Patient described the pain is heaviness and pressure in nature. Patient has history of coronary artery disease, had multiple stents placed. Patient denies any cough or fever, no abdominal pain, no nausea vomiting. 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 He is known for CAD with prior stent placed to the RCA on 02/08/2021 and has had PA in the past as well. He is quite sedentary with his job and does not exercise. On ROS notes that at work few days ago he noted feeling dizzy and his BP was 75/40 but it got better. He takes, ranexa, metoprolol, imdur 60mg and aldactone. WBC 11, Hb 14.5, platelets 256, NA 143, K4.9, BUN 15, CR 1, glucose 219, albumin 3.3, lipase 65 troponin 0 EKG appears sinus rhythm rate of [address] segment elevations lateral T wave flattening Admitted for further care. Past Medical History Cardiovascular: CAD, CHF, HTN, PA, Hyperlipidemia, Other Pulmonary: No pertinent hx CENTRAL NERVOUS SYSTEM: Other GI: GERD Heme/Onc: No pertinent hx Hepatobiliary: No pertinent hx Psych: No pertinent hx Musculoskeletal: Osteoarthritis Rheumatologic: No pertinent hx Infectious disease: No pertinent hx Renal/: No pertinent hx Past Surgical History Past Surgical History: Tonsillectomy, Other Family History Family History: Hypertension Social History Smoke: Quit ALCOHOL: none Drugs: None Current Problem List Problem List Problems Medical Problems: (1) Chest pain Status: Acute Current Medications Current Medications Current Medications Aspirin (Aspirin Chewable) 81 mg DAILY08 PO ; Start 04/12/21 at 08:00 Cyclobenzaprine HCl (Flexeril) 10 mg PRN Q6HRS PRN PO MUSCLE SPASMS; Start 04/11/21 at 22:00 EZETIMIBE (Zetia) 10 mg DAILY PO ; Start 04/12/21 at 09:00 Hydroxyzine HCl (Atarax) 25 mg HS PO Last administered on 04/11/21at 22:56; Start 04/11/21 at 22:30 Metformin HCl (Glucophage) 500 mg HS PO Last administered on 04/11/21at 22:56; Start 04/11/21 at 22:30 Metoprolol Tartrate (Lopressor) 50 mg BIDWMEALS PO ; Start 04/12/21 at 08:00 Nitroglycerin (Nitrostat) 0.4 mg PRN Q5MIN PRN SL CHEST PAIN; Start 04/11/21 at 22:00 Pantoprazole Sodium (Protonix) 40 mg DAILYAC PO ; Start 04/12/21 at 07:30 Ranolazine (Ranexa) 500 mg BIDWMEALS PO ; Start 04/12/21 at 08:00 Spironolactone (Aldactone) 25 mg DAILY PO ; Start 04/12/21 at 09:00 Tramadol HCl (Ultram) 50 mg PRN Q8HRS PRN PO PAIN; Start 04/11/21 at 22:00 Albuterol Sulfate (Ventolin Neb Soln) 2.5 mg PRN Q4HRS PRN NEB SHORTNESS OF BREATH; Start 04/11/21 at 22:15 Atorvastatin Calcium (Lipitor) 80 mg QHS PO Last administered on 04/11/21at 22:56; Start 04/11/21 at 22:12 Isosorbide Mononitrate (Imdur) 60 mg DAILY PO ; Start 04/12/21 at 09:00 Rivaroxaban (Xarelto) 20 mg DAILY08 PO ; Start 04/12/21 at 08:00 Clopidogrel Bisulfate (Plavix) 75 mg DAILY08 PO ; Start 04/12/21 at 08:00 Active Scripts Active Pantoprazole Sodium (Pantoprazole Sodium) 40 Mg Tablet.dr 40 Mg PO DAILYAC 30 Days Cyclobenzaprine Hcl 10 Mg Tablet 10 Mg PO PRN Q6HRS PRN 10 Days Reported Clopidogrel (Clopidogrel Bisulfate) 75 Mg Tablet 1 Tab PO DAILY Nitrostat (Nitroglycerin) 0.4 Mg Tab.subl 0.4 Mg SL PRN Q5MIN PRN Tramadol Hcl 50 Mg Tablet 50 Mg PO PRN Q8HRS PRN Albuterol Sulfate Conc Neb Soln (Albuterol Sulfate) 2.5 Mg/0.5 Ml Vial.neb 1 Vial NEB PRN Q4-6HRS PRN Hydroxyzine Hcl 25 Mg Tablet 25 Mg PO HS Metoprolol Tartrate 50 Mg Tablet 1 Tab PO BIDWMEALS Lipitor (Atorvastatin Calcium) 80 Mg Tablet 80 Mg PO HS Spironolactone 25 Mg Tablet 1 Tab PO DAILY Zetia (Ezetimibe) 10 Mg Tablet 1 Tab PO DAILY 30 Days Isosorbide Mononitrate Er (Isosorbide Mononitrate) 60 Mg Tab.er.24h 1 Tab PO DAILY Ranexa (Ranolazine) 500 Mg Tab.er.12h 1 Tab PO BIDWMEALS 30 Days Metformin Hcl 500 Mg Tablet 500 Mg PO HS Aspirin 81 Mg Tab.chew 1 Tab PO DAILY Xarelto (Rivaroxaban) 20 Mg Tablet 1 Tab PO DAILY 30 Days with food Allergies Allergies: Coded Allergies: Penicillins (Verified Allergy, Intermediate, hives/rash/swelling, 07/13/20) ROS General: YES: Fatigue, Malaise; No: Chills, Night Sweats, Appetite, Other PSYCHOLOGICAL ROS: No: Anxiety, Behavioral Disorder, Concentration difficultie, Decreased libido, Depression, Disorientation, Hallucinations, Hostility, Irritablity, Memory difficulties, Mood Swings, Obsessive thoughts, Physical abuse, Sexual abuse, Sleep disturbances, Suicidal ideation, Other Eyes: No Blurry vision, No Decreased vision, No Double vision, No Dry eyes, No Excessive tearing, No Eye Pain, No Itchy Eyes, No Loss of vision, No Photoph obia, No Scotomata, No Uses contacts, No Uses glasses, No Other HEENT: No: Heacaches, Visual Changes, Hearing change, Nasal congestion, Nasal discharge, Oral lesions, Sinus pain, Sore Throat, Epistaxis, Sneezing, Snoring, Tinnitus, Vertigo, Vocal changes, Other ALLERGY AND IMMUNOLOGY: No: Hives, Insect Bite Sensitivity, Itchy/Watery Eyes, Nasal Congestion, Post Nasal Drip, Seasonal Allergies, Other Hematological and Lymphatic: No: Bleeding Problems, Blood Clots, Blood Transfusions, Brusing, Night Sweats, Pallor, Swollen Lymph Nodes, Other ENDOCRINE: No: Breast Changes, Galactorrhea, Hair Pattern Changes, Hot Flashes, Malaise/lethargy, Mood Swings, Palpitations, Polydipsia/polyuria, Skin Changes, Temperature Intolerance, Unexpected Weight Changes, Other Breast: No New/Changing Breast Lumps, No Nipple changes, No Nipple discharge, No Other Respiratory: YES: SOB with excertion; No: Cough, Hemoptysis, Orthopnea, Pleuritic Pain, Shortness of breath, Sputum Changes, Stridor, Tachypnea, Wheezing, Other Cardiovascular: yes Chest Pain; No Palpitations, No Orthopnea, No Paroxysmal Noc. Dyspnea, No Edema, No Lt Headedness, No Other Gastrointestinal: Yes Abdominal Pain; No Nausea, No Vomiting, No Diarrhea, No Constipation, No Melena, No Hematochezia, No Other Genitourinary: No Dysuria, No Frequency, No Incontinence, No Hematuria, No Retention, No Discharge, No Urgency, No Pain, No Flank Pain, No Other, No , No , No , No , No , No , No Musculoskeletal: No Gait Disturbance, No Joint Pain, No Joint Stiffness, No Joint Swelling, No Muscle Pain, No Muscular Weakness, No Pain In:, No Swelling In:, No Other Neurological: No Behavorial Changes, No Bowel/Bladder ControlChng, No Confusion, No Dizziness, No Gait Disturbance, No Headaches, No Impaired Coord/balance, No Memory Loss, No Numbness/Tingling, No Seizures, No Speech Problems, No Tremors, No Visual Changes, No Weakness, No Other Skin: No Dry Skin, No Eczema, No Hair Changes, No Lumps, No Mole Changes, No Mottling, No Nail Changes, No Pruritus, No Rash, No Skin Lesion Changes, No Other, No Acne Physical Exam General: Alert, Oriented X3, Cooperative, mild distress HEENT: Atraumatic, PERRLA, EOMI, Mucous membr. moist/pink Lungs: Clear to auscultation, Normal air movement Heart: S1S2, RRR, no thrills, no rubs, no gallops, no murmurs Abdomen: Normal bowel sounds, Soft, No tenderness, No hepatosplenomegaly, No masses Rectal Exam: not examined Extremities: No clubbing, No cyanosis, No edema, Normal pulses, No tenderness/swelling Skin: No rashes, No breakdown, No significant lesion Neuro: Normal gait, Normal speech, Strength at 5/5 X4 ext, Normal tone, Sensation intact, Cranial nerves 3-12 NL, Reflexes 2+ Psych/Mental Status: Mental status NL, Mood NL Vitals Vitals Vital Signs Date Time Temp Pulse Resp B/P (MAP) Pulse Ox O2 Delivery O2 Flow Rate FiO2 04/12/21 03:00 98.2 80 28 129/88 (102) 99 Nasal Cannula 2.0 98.2 Labs Labs Laboratory Tests Test 04/11/21 17:09 04/11/21 17:40 04/11/21 20:50 04/12/21 00:22 White Blood Count 11.0 x10^3/uL (4.0-11.0) Red Blood Count 4.83 x10^6/uL (4.30-5.70) Hemoglobin 14.5 g/dL (13.0-17.5) Hematocrit 43.3 % (39.0-53.0) Mean Corpuscular Volume 90 fL (79-100) Mean Corpuscular Hemoglobin 30 pg (25-35) Mean Corpuscular Hemoglobin Concent 34 g/dL (31-37) Red Cell Distribution Width 15.4 % (11.5-14.5) Platelet Count 256 x10^3/uL (140-400) Neutrophils (%) (Auto) 66 % (31-73) Lymphocytes (%) (Auto) 26 % (24-48) Monocytes (%) (Auto) 6 % (0-9) Eosinophils (%) (Auto) 1 % (0-3) Basophils (%) (Auto) 1 % (0-3) Neutrophils # (Auto) 7.2 x10^3/uL (1.8-7.7) Lymphocytes # (Auto) 2.8 x10^3/uL (1.0-4.8) Monocytes # (Auto) 0.6 x10^3/uL (0.0-1.1) Eosinophils # (Auto) 0.2 x10^3/uL (0.0-0.7) Basophils # (Auto) 0.1 x10^3/uL (0.0-0.2) Sodium Level 143 mmol/L (136-145) Potassium Level 4.9 mmol/L (3.5-5.1) Chloride Level 105 mmol/L (98-107) Carbon Dioxide Level 31 mmol/L (21-32) Anion Gap 7 (6-14) Blood Urea Nitrogen 15 mg/dL (8-26) Creatinine 1.0 mg/dL (0.7-1.3) Estimated GFR (Cockcroft-Gault) 79.8 BUN/Creatinine Ratio 15 (6-20) Glucose Level 219 mg/dL (70-99) Calcium Level 8.6 mg/dL (8.5-10.1) Magnesium Level 2.0 mg/dL (1.8-2.4) Total Bilirubin 0.3 mg/dL (0.2-1.0) Aspartate Amino Transf (AST/SGOT) 15 U/L (15-37) Alanine Aminotransferase (ALT/SGPT) 34 U/L (16-63) Alkaline Phosphatase 43 U/L (46-116) Troponin I Quantitative < 0.017 ng/mL (0.000-0.055) < 0.017 ng/mL (0.000-0.055) < 0.017 ng/mL (0.000-0.055) ZT-Ugb-Q-Type Natriuretic Peptide 117 pg/mL (0-124) Total Protein 6.7 g/dL (6.4-8.2) Albumin 3.3 g/dL (3.4-5.0) Albumin/Globulin Ratio 1.0 (1.0-1.7) Lipase 65 U/L (73-393) Test 04/12/21 05:52 White Blood Count 8.5 x10^3/uL (4.0-11.0) Red Blood Count 4.67 x10^6/uL (4.30-5.70) Hemoglobin 13.8 g/dL (13.0-17.5) Hematocrit 41.8 % (39.0-53.0) Mean Corpuscular Volume 90 fL (79-100) Mean Corpuscular Hemoglobin 30 pg (25-35) Mean Corpuscular Hemoglobin Concent 33 g/dL (31-37) Red Cell Distribution Width 15.1 % (11.5-14.5) Platelet Count 237 x10^3/uL (140-400) Sodium Level 142 mmol/L (136-145) Potassium Level 4.5 mmol/L (3.5-5.1) Chloride Level 106 mmol/L (98-107) Carbon Dioxide Level 28 mmol/L (21-32) Anion Gap 8 (6-14) Blood Urea Nitrogen 14 mg/dL (8-26) Creatinine 0.9 mg/dL (0.7-1.3) Estimated GFR (Cockcroft-Gault) 90.1 Glucose Level 144 mg/dL (70-99) Calcium Level 8.7 mg/dL (8.5-10.1) Magnesium Level 2.0 mg/dL (1.8-2.4) Laboratory Tests Test 04/11/21 17:09 04/11/21 17:40 04/11/21 20:50 04/12/21 00:22 White Blood Count 11.0 x10^3/uL (4.0-11.0) Red Blood Count 4.83 x10^6/uL (4.30-5.70) Hemoglobin 14.5 g/dL (13.0-17.5) Hematocrit 43.3 % (39.0-53.0) Mean Corpuscular Volume 90 fL (79-100) Mean Corpuscular Hemoglobin 30 pg (25-35) Mean Corpuscular Hemoglobin Concent 34 g/dL (31-37) Red Cell Distribution Width 15.4 % (11.5-14.5) Platelet Count 256 x10^3/uL (140-400) Neutrophils (%) (Auto) 66 % (31-73) Lymphocytes (%) (Auto) 26 % (24-48) Monocytes (%) (Auto) 6 % (0-9) Eosinophils (%) (Auto) 1 % (0-3) Basophils (%) (Auto) 1 % (0-3) Neutrophils # (Auto) 7.2 x10^3/uL (1.8-7.7) Lymphocytes # (Auto) 2.8 x10^3/uL (1.0-4.8) Monocytes # (Auto) 0.6 x10^3/uL (0.0-1.1) Eosinophils # (Auto) 0.2 x10^3/uL (0.0-0.7) Basophils # (Auto) 0.1 x10^3/uL (0.0-0.2) Sodium Level 143 mmol/L (136-145) Potassium Level 4.9 mmol/L (3.5-5.1) Chloride Level 105 mmol/L (98-107) Carbon Dioxide Level 31 mmol/L (21-32) Anion Gap 7 (6-14) Blood Urea Nitrogen 15 mg/dL (8-26) Creatinine 1.0 mg/dL (0.7-1.3) Estimated GFR (Cockcroft-Gault) 79.8 BUN/Creatinine Ratio 15 (6-20) Glucose Level 219 mg/dL (70-99) Calcium Level 8.6 mg/dL (8.5-10.1) Magnesium Level 2.0 mg/dL (1.8-2.4) Total Bilirubin 0.3 mg/dL (0.2-1.0) Aspartate Amino Transf (AST/SGOT) 15 U/L (15-37) Alanine Aminotransferase (ALT/SGPT) 34 U/L (16-63) Alkaline Phosphatase 43 U/L (46-116) Troponin I Quantitative < 0.017 ng/mL (0.000-0.055) < 0.017 ng/mL (0.000-0.055) < 0.017 ng/mL (0.000-0.055) GA-Bcl-T-Type Natriuretic Peptide 117 pg/mL (0-124) Total Protein 6.7 g/dL (6.4-8.2) Albumin 3.3 g/dL (3.4-5.0) Albumin/Globulin Ratio 1.0 (1.0-1.7) Lipase 65 U/L (73-393) Test 04/12/21 05:52 White Blood Count 8.5 x10^3/uL (4.0-11.0) Red Blood Count 4.67 x10^6/uL (4.30-5.70) Hemoglobin 13.8 g/dL (13.0-17.5) Hematocrit 41.8 % (39.0-53.0) Mean Corpuscular Volume 90 fL (79-100) Mean Corpuscular Hemoglobin 30 pg (25-35) Mean Corpuscular Hemoglobin Concent 33 g/dL (31-37) Red Cell Distribution Width 15.1 % (11.5-14.5) Platelet Count 237 x10^3/uL (140-400) Sodium Level 142 mmol/L (136-145) Potassium Level 4.5 mmol/L (3.5-5.1) Chloride Level 106 mmol/L (98-107) Carbon Dioxide Level 28 mmol/L (21-32) Anion Gap 8 (6-14) Blood Urea Nitrogen 14 mg/dL (8-26) Creatinine 0.9 mg/dL (0.7-1.3) Estimated GFR (Cockcroft-Gault) 90.1 Glucose Level 144 mg/dL (70-99) Calcium Level 8.7 mg/dL (8.5-10.1) Magnesium Level 2.0 mg/dL (1.8-2.4) Images Images Chest radiograph: No consolidation or pleural effusion. Normal heart size. No pneumothorax. Impression: 1. No acute cardiopulmonary process. VTE Prophylaxis Ordered VTE Prophylaxis Devices: Yes VTE Pharmacological Prophylaxi: Yes Assessment/Plan Assessment/Plan A/P: Chest pain - sounds to be GERD vs Chronic stable angina. Troponin negative, telemetry with no adverse events. Cardiology consulted will trend trops Chronic stable angina - on ranexa and imdur, advised to split up his med dosing due to hypotension Hypotension - mostly from medications. currently normotensive CAD - past RCA stent 02/07 at [facility] HLD - on statin Obesity -counseled on lifestyle modification 30 minutes of walking 5 days a week. Paroxysmal AFIB -currently sinus rhythm. On metoprolol and Xarelto for CVA prophylaxis GERD - on PPI. Likely needs GI f/u for his symptoms outpatient, advised this, may need EGD FEN - NPO PPX - lovenox FULL CODE Dispo - inpatient Justifications for Admission Other Justification PHANI DUARTE MD Apr 12, 2021 07:12
[2021-04-12] MEDS ORDERED: PANTOPRAZOLE 40 MG TABLET.DR. PO SCH (07:30)
[2021-04-12] MEDS ORDERED: ASPIRIN CHEWABLE 81 MG TABLET. PO SCH (08:00)
[2021-04-12] MEDS ORDERED: RIVAROXABAN 10 MG TABLET. PO SCH (08:00)
[2021-04-12] MEDS ORDERED: CLOPIDOGREL BISULFATE 75 MG TABLET PO SCH (08:00)
[2021-04-12] MEDS ORDERED: EZETIMIBE 10 MG TABLET. PO SCH (09:00)
[2021-04-12] MEDS ORDERED: SPIRONOLACTONE 25 MG TABLET PO SCH (09:00)
[2021-04-12] MEDS ORDERED: ISOSORBIDE MONONITRATE ER 30 MG TAB.ER.24H PO SCH (09:00)
[2021-04-12] MEDS: RANOLAZINE 500 MG TAB.ER.12H PO SCH ×2 (09:43→16:30)
[2021-04-12] MEDS: METOPROLOL TART IMMED RELEASE 50 MG TABLET. PO SCH ×2 (09:46→16:30)
[2021-04-12 11:00] VITALS: BP 121/86
--- NOTE | 2021-04-12 12:19 | PDOC2 ---
STEVEN ROMERO ELEMENTARY SUPERVISOR 04/12/21 1219: CARDIAC CONSULT DATE OF CONSULT Date of Consult DATE: 04/12/21 TIME: 12:00 REASON FOR CONSULT Reason for Consult: Chest pain REFERRING PHYSICIAN Referring Physician: [facility] SOURCE Source: Chart review, Patient HISTORY OF PRESENT ILLNESS HISTORY OF PRESENT ILLNESS This is a pleasant 46 yo male admitted for complains of chest pain. Reports that at work few days ago he noted feeling dizzy and his BP was 75/40 but it got better. He takes, ranexa, metoprolol, undur and aldactone. The next day he was not doing much and he started having achy chest and took 1 NTG and went away. Yesterday he started having this chest discomfort again and could not take NTG as he was afraid his BP will go down as it was already 95/75. Denies any diaphoresis, no significant SOA and no palpitations and no nausea or vomiting. He then called his claim agent at [facility] and the nurse told him to go to ER just in case. He is known for CAD with prior stent placed to the RCA on 02/08/2021 and has had VT in the past as well. He is quite sedentary with his job and does not exercise. PAST MEDICAL HISTORY Past Medical History Cardiovascular: CAD, CHF, HTN, VT, Hyperlipidemia, Other Pulmonary: No pertinent hx CENTRAL NERVOUS SYSTEM: Other GI: GERD Heme/Onc: No pertinent hx Hepatobiliary: No pertinent hx Psych: No pertinent hx Musculoskeletal: Osteoarthritis Rheumatologic: No pertinent hx Infectious disease: No pertinent hx Renal/: No pertinent hx PAST SURGICAL HISTORY Past Surgical History Tonsillectomy, Other (Coronary stenting as above) FAMILY HISTORY Family History: Hypertension SOCIAL HISTORY Smoke: Quit ALCOHOL: none Drugs: None Lives: with Family CURRENT MEDICATIONS CURRENT MEDICATIONS Current Medications Medications (Trade) Dose Ordered Sig/Delvis Route PRN Reason Start Time Stop Time Status Last Admin Dose Admin Aspirin (Aspirin Chewable) 81 mg DAILY08 PO 04/12/21 08:00 04/12/21 09:43 EZETIMIBE (Zetia) 10 mg DAILY PO 04/12/21 09:00 04/12/21 09:43 Hydroxyzine HCl (Atarax) 25 mg HS PO 04/11/21 22:30 04/11/21 22:56 Metformin HCl (Glucophage) 500 mg HS PO 04/11/21 22:30 04/11/21 22:56 Metoprolol Tartrate (Lopressor) 50 mg BIDWMEALS PO 04/12/21 08:00 04/12/21 09:46 Pantoprazole Sodium (Protonix) 40 mg DAILYAC PO 04/12/21 07:30 04/12/21 09:43 Ranolazine (Ranexa) 500 mg BIDWMEALS PO 04/12/21 08:00 04/12/21 09:43 Spironolactone (Aldactone) 25 mg DAILY PO 04/12/21 09:00 04/12/21 09:44 Atorvastatin Calcium (Lipitor) 80 mg QHS PO 04/11/21 22:12 04/11/21 22:56 Isosorbide Mononitrate (Imdur) 60 mg DAILY PO 04/12/21 09:00 04/12/21 09:44 Rivaroxaban (Xarelto) 20 mg DAILY08 PO 04/12/21 08:00 04/12/21 09:44 Clopidogrel Bisulfate (Plavix) 75 mg DAILY08 PO 04/12/21 08:00 04/12/21 09:43 ALLERGIES ALLERGIES: Coded Allergies: Penicillins (Verified Allergy, Intermediate, hives/rash/swelling, 07/13/20) ROS Review of System 14 point ROS evaluated with pertinent positives noted per HPI PHYSICAL EXAM General: Alert, Oriented X3, Cooperative, No acute distress HEENT: Atraumatic, Mucous membr. moist/pink Lungs: Clear to auscultation, Normal air movement Heart: Regular rate, Normal S1, Normal S2, No murmurs Abdomen: Soft, No tenderness, Other (protuberant) Extremities: No cyanosis, Other (trace LE edema) Skin: No breakdown, No significant lesion Neuro: Normal speech, Sensation intact Psych/Mental Status: Mental status NL, Mood NL MUSCULOSKELETAL: Osteoarthritic changes both hands VITALS/I&O VITALS/I&O: Vital Signs Date Time Temp Pulse Resp B/P (MAP) Pulse Ox O2 Delivery O2 Flow Rate FiO2 04/12/21 11:00 97.8 80 19 121/86 (98) 99 Nasal Cannula 1.0 97.8 I & O 04/11/21 04/11/21 04/12/21 15:00 23:00 07:00 Intake Total 50 ml Balance 50 ml LABS Lab: Laboratory Tests Test 04/11/21 17:09 04/11/21 17:40 04/11/21 20:50 04/12/21 00:22 White Blood Count 11.0 x10^3/uL (4.0-11.0) Red Blood Count 4.83 x10^6/uL (4.30-5.70) Hemoglobin 14.5 g/dL (13.0-17.5) Hematocrit 43.3 % (39.0-53.0) Mean Corpuscular Volume 90 fL (79-100) Mean Corpuscular Hemoglobin 30 pg (25-35) Mean Corpuscular Hemoglobin Concent 34 g/dL (31-37) Red Cell Distribution Width 15.4 % (11.5-14.5) H Platelet Count 256 x10^3/uL (140-400) Neutrophils (%) (Auto) 66 % (31-73) Lymphocytes (%) (Auto) 26 % (24-48) Monocytes (%) (Auto) 6 % (0-9) Eosinophils (%) (Auto) 1 % (0-3) Basophils (%) (Auto) 1 % (0-3) Neutrophils # (Auto) 7.2 x10^3/uL (1.8-7.7) Lymphocytes # (Auto) 2.8 x10^3/uL (1.0-4.8) Monocytes # (Auto) 0.6 x10^3/uL (0.0-1.1) Eosinophils # (Auto) 0.2 x10^3/uL (0.0-0.7) Basophils # (Auto) 0.1 x10^3/uL (0.0-0.2) Sodium Level 143 mmol/L (136-145) Potassium Level 4.9 mmol/L (3.5-5.1) Chloride Level 105 mmol/L (98-107) Carbon Dioxide Level 31 mmol/L (21-32) Anion Gap 7 (6-14) Blood Urea Nitrogen 15 mg/dL (8-26) Creatinine 1.0 mg/dL (0.7-1.3) Estimated GFR (Cockcroft-Gault) 79.8 BUN/Creatinine Ratio 15 (6-20) Glucose Level 219 mg/dL (70-99) H Calcium Level 8.6 mg/dL (8.5-10.1) Magnesium Level 2.0 mg/dL (1.8-2.4) Total Bilirubin 0.3 mg/dL (0.2-1.0) Aspartate Amino Transferase (AST) 15 U/L (15-37) Alanine Aminotransferase (ALT) 34 U/L (16-63) Alkaline Phosphatase 43 U/L (46-116) L Troponin I Quantitative < 0.017 ng/mL (0.000-0.055) < 0.017 ng/mL (0.000-0.055) < 0.017 ng/mL (0.000-0.055) SU-Etx-N-Type Natriuretic Peptide 117 pg/mL (0-124) Total Protein 6.7 g/dL (6.4-8.2) Albumin 3.3 g/dL (3.4-5.0) L Albumin/Globulin Ratio 1.0 (1.0-1.7) Lipase 65 U/L (73-393) L Test 04/12/21 05:52 White Blood Count 8.5 x10^3/uL (4.0-11.0) Red Blood Count 4.67 x10^6/uL (4.30-5.70) Hemoglobin 13.8 g/dL (13.0-17.5) Hematocrit 41.8 % (39.0-53.0) Mean Corpuscular Volume 90 fL (79-100) Mean Corpuscular Hemoglobin 30 pg (25-35) Mean Corpuscular Hemoglobin Concent 33 g/dL (31-37) Red Cell Distribution Width 15.1 % (11.5-14.5) H Platelet Count 237 x10^3/uL (140-400) Sodium Level 142 mmol/L (136-145) Potassium Level 4.5 mmol/L (3.5-5.1) Chloride Level 106 mmol/L (98-107) Carbon Dioxide Level 28 mmol/L (21-32) Anion Gap 8 (6-14) Blood Urea Nitrogen 14 mg/dL (8-26) Creatinine 0.9 mg/dL (0.7-1.3) Estimated GFR (Cockcroft-Gault) 90.1 Glucose Level 144 mg/dL (70-99) H Calcium Level 8.7 mg/dL (8.5-10.1) Magnesium Level 2.0 mg/dL (1.8-2.4) Laboratory Tests 04/11/21 17:09 04/12/21 05:52 Laboratory Tests 04/11/21 17:40 04/12/21 05:52 ASSESSMENT/PLAN ASSESSMENT/PLAN 1. Chronic stable angina 2. Hypotension: mostly from medications. currently normal 3. CAD: past RCA stents 4. HTN: controlled 5. HLP 6. Obesity 7. Deconditioning 8. PAFIB: SR 9. GERD: on PPI Recommendations 1. Will need to reschedule some his once a day meds at a different time to avoid hypotensive issue such as taking imdur after lunch or reducing dose. Ranexa is currently at low dose 2. Continue xarelto for stroke prevention . low dose ASA and plavix 3. Anticipate DC today, and follow up with [facility] cardiology in April as scheduled 4. Also consider GI referral for any associated reflux issue MIKA SALINAS MD 04/12/21 1532: CARDIAC CONSULT ASSESSMENT/PLAN ASSESSMENT/PLAN The patient was seen and interviewed as well as examined at the bedside. The chart was reviewed. The case was discussed. Agree with the plan of care. STEVEN ROMERO APRN Apr 12, 2021 12:19 MIKA SALINAS MD Apr 12, 2021 15:32
[2021-04-12 15:00] VITALS: BP 102/69
--- NOTE | 2021-04-12 15:19 | PDOC3 ---
Discharge Summary Visit Information Date of Admission: Apr 12, 2021 Date of Discharge: Apr 12, 2021 Admitting Diagnosis: Chest pain Final Diagnosis Problems Medical Problems: (1) Chest pain Status: Acute Brief Hospital Course Allergies Allergies Coded Allergies Type Severity Reaction Last Updated Verified Penicillins Allergy Intermediate hives/rash/swelling 07/13/20 Yes Vital Signs Vital Signs Date Time Temp Pulse Resp B/P (MAP) Pulse Ox O2 Delivery O2 Flow Rate FiO2 04/12/21 11:00 97.8 80 19 121/86 (98) 99 Nasal Cannula 1.0 97.8 Lab Results Laboratory Tests Test 04/11/21 17:09 04/11/21 17:40 04/11/21 20:50 04/12/21 00:22 White Blood Count 11.0 x10^3/uL (4.0-11.0) Red Blood Count 4.83 x10^6/uL (4.30-5.70) Hemoglobin 14.5 g/dL (13.0-17.5) Hematocrit 43.3 % (39.0-53.0) Mean Corpuscular Volume 90 fL (79-100) Mean Corpuscular Hemoglobin 30 pg (25-35) Mean Corpuscular Hemoglobin Concent 34 g/dL (31-37) Red Cell Distribution Width 15.4 % (11.5-14.5) Platelet Count 256 x10^3/uL (140-400) Neutrophils (%) (Auto) 66 % (31-73) Lymphocytes (%) (Auto) 26 % (24-48) Monocytes (%) (Auto) 6 % (0-9) Eosinophils (%) (Auto) 1 % (0-3) Basophils (%) (Auto) 1 % (0-3) Neutrophils # (Auto) 7.2 x10^3/uL (1.8-7.7) Lymphocytes # (Auto) 2.8 x10^3/uL (1.0-4.8) Monocytes # (Auto) 0.6 x10^3/uL (0.0-1.1) Eosinophils # (Auto) 0.2 x10^3/uL (0.0-0.7) Basophils # (Auto) 0.1 x10^3/uL (0.0-0.2) Sodium Level 143 mmol/L (136-145) Potassium Level 4.9 mmol/L (3.5-5.1) Chloride Level 105 mmol/L (98-107) Carbon Dioxide Level 31 mmol/L (21-32) Anion Gap 7 (6-14) Blood Urea Nitrogen 15 mg/dL (8-26) Creatinine 1.0 mg/dL (0.7-1.3) Estimated GFR (Cockcroft-Gault) 79.8 BUN/Creatinine Ratio 15 (6-20) Glucose Level 219 mg/dL (70-99) Calcium Level 8.6 mg/dL (8.5-10.1) Magnesium Level 2.0 mg/dL (1.8-2.4) Total Bilirubin 0.3 mg/dL (0.2-1.0) Aspartate Amino Transf (AST/SGOT) 15 U/L (15-37) Alanine Aminotransferase (ALT/SGPT) 34 U/L (16-63) Alkaline Phosphatase 43 U/L (46-116) Troponin I Quantitative < 0.017 ng/mL (0.000-0.055) < 0.017 ng/mL (0.000-0.055) < 0.017 ng/mL (0.000-0.055) UA-Hef-Y-Type Natriuretic Peptide 117 pg/mL (0-124) Total Protein 6.7 g/dL (6.4-8.2) Albumin 3.3 g/dL (3.4-5.0) Albumin/Globulin Ratio 1.0 (1.0-1.7) Lipase 65 U/L (73-393) Test 04/12/21 05:52 White Blood Count 8.5 x10^3/uL (4.0-11.0) Red Blood Count 4.67 x10^6/uL (4.30-5.70) Hemoglobin 13.8 g/dL (13.0-17.5) Hematocrit 41.8 % (39.0-53.0) Mean Corpuscular Volume 90 fL (79-100) Mean Corpuscular Hemoglobin 30 pg (25-35) Mean Corpuscular Hemoglobin Concent 33 g/dL (31-37) Red Cell Distribution Width 15.1 % (11.5-14.5) Platelet Count 237 x10^3/uL (140-400) Sodium Level 142 mmol/L (136-145) Potassium Level 4.5 mmol/L (3.5-5.1) Chloride Level 106 mmol/L (98-107) Carbon Dioxide Level 28 mmol/L (21-32) Anion Gap 8 (6-14) Blood Urea Nitrogen 14 mg/dL (8-26) Creatinine 0.9 mg/dL (0.7-1.3) Estimated GFR (Cockcroft-Gault) 90.1 Glucose Level 144 mg/dL (70-99) Calcium Level 8.7 mg/dL (8.5-10.1) Magnesium Level 2.0 mg/dL (1.8-2.4) Laboratory Tests Test 04/11/21 17:09 04/11/21 17:40 04/11/21 20:50 04/12/21 00:22 White Blood Count 11.0 x10^3/uL (4.0-11.0) Red Blood Count 4.83 x10^6/uL (4.30-5.70) Hemoglobin 14.5 g/dL (13.0-17.5) Hematocrit 43.3 % (39.0-53.0) Mean Corpuscular Volume 90 fL (79-100) Mean Corpuscular Hemoglobin 30 pg (25-35) Mean Corpuscular Hemoglobin Concent 34 g/dL (31-37) Red Cell Distribution Width 15.4 % (11.5-14.5) Platelet Count 256 x10^3/uL (140-400) Neutrophils (%) (Auto) 66 % (31-73) Lymphocytes (%) (Auto) 26 % (24-48) Monocytes (%) (Auto) 6 % (0-9) Eosinophils (%) (Auto) 1 % (0-3) Basophils (%) (Auto) 1 % (0-3) Neutrophils # (Auto) 7.2 x10^3/uL (1.8-7.7) Lymphocytes # (Auto) 2.8 x10^3/uL (1.0-4.8) Monocytes # (Auto) 0.6 x10^3/uL (0.0-1.1) Eosinophils # (Auto) 0.2 x10^3/uL (0.0-0.7) Basophils # (Auto) 0.1 x10^3/uL (0.0-0.2) Sodium Level 143 mmol/L (136-145) Potassium Level 4.9 mmol/L (3.5-5.1) Chloride Level 105 mmol/L (98-107) Carbon Dioxide Level 31 mmol/L (21-32) Anion Gap 7 (6-14) Blood Urea Nitrogen 15 mg/dL (8-26) Creatinine 1.0 mg/dL (0.7-1.3) Estimated GFR (Cockcroft-Gault) 79.8 BUN/Creatinine Ratio 15 (6-20) Glucose Level 219 mg/dL (70-99) Calcium Level 8.6 mg/dL (8.5-10.1) Magnesium Level 2.0 mg/dL (1.8-2.4) Total Bilirubin 0.3 mg/dL (0.2-1.0) Aspartate Amino Transf (AST/SGOT) 15 U/L (15-37) Alanine Aminotransferase (ALT/SGPT) 34 U/L (16-63) Alkaline Phosphatase 43 U/L (46-116) Troponin I Quantitative < 0.017 ng/mL (0.000-0.055) < 0.017 ng/mL (0.000-0.055) < 0.017 ng/mL (0.000-0.055) BC-Ifx-X-Type Natriuretic Peptide 117 pg/mL (0-124) Total Protein 6.7 g/dL (6.4-8.2) Albumin 3.3 g/dL (3.4-5.0) Albumin/Globulin Ratio 1.0 (1.0-1.7) Lipase 65 U/L (73-393) Test 04/12/21 05:52 White Blood Count 8.5 x10^3/uL (4.0-11.0) Red Blood Count 4.67 x10^6/uL (4.30-5.70) Hemoglobin 13.8 g/dL (13.0-17.5) Hematocrit 41.8 % (39.0-53.0) Mean Corpuscular Volume 90 fL (79-100) Mean Corpuscular Hemoglobin 30 pg (25-35) Mean Corpuscular Hemoglobin Concent 33 g/dL (31-37) Red Cell Distribution Width 15.1 % (11.5-14.5) Platelet Count 237 x10^3/uL (140-400) Sodium Level 142 mmol/L (136-145) Potassium Level 4.5 mmol/L (3.5-5.1) Chloride Level 106 mmol/L (98-107) Carbon Dioxide Level 28 mmol/L (21-32) Anion Gap 8 (6-14) Blood Urea Nitrogen 14 mg/dL (8-26) Creatinine 0.9 mg/dL (0.7-1.3) Estimated GFR (Cockcroft-Gault) 90.1 Glucose Level 144 mg/dL (70-99) Calcium Level 8.7 mg/dL (8.5-10.1) Magnesium Level 2.0 mg/dL (1.8-2.4) Brief Hospital Course Mr Weller is a 46 year old male w/ PMHx CAD s/p stenting to RCA, afib on xarelto , GERD on PPI, HLD, HTN, smoker who presented to ER due to substernal chest pain that started 2 hours prior to coming to ED around 1pm, had breakfast at 10am while at work. Patient described the pain is heaviness and pressure in nature. Patient has history of coronary artery disease, had multiple stents placed. Patient denies any cough or fever, no abdominal pain, no nausea vomiting. 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 He is known for CAD with prior stent placed to the RCA on 02/08/2021 and has had NH in the past as well. He is quite sedentary with his job and does not exercise. On ROS notes that at work few days ago he noted feeling dizzy and his BP was 75/40 but it got better. He takes, ranexa, metoprolol, imdur 60mg and aldactone. WBC 11, Hb 14.5, platelets 256, NA 143, K4.9, BUN 15, CR 1, glucose 219, albumin 3.3, lipase 65 troponin 0 EKG appears sinus rhythm rate of [address] segment elevations lateral T wave flattening Admitted for further care. Seen by cardiology. Troponins trended out negative. Recommended splitting up his antihypertensives as he has had multiple hypotensive episodes. He does have chronic stable angina and has had difficulty controlling it despite 60 mg of Imdur as well as Ranexa. Advised that GI referral outpatient may be appropriate given the this may also be GI related. He prefer to do this on an outpatient basis which is appropriate. Consults: Cardiology Problem list: Chest pain - sounds to be GERD vs Chronic stable angina. Troponin negative, telemetry with no adverse events. Cardiology consulted trended trops negative. Follow with [facility] cardiology outpatient as scheduled Chronic stable angina - on ranexa and imdur, advised to split up his med dosing due to hypotension Hypotension - mostly from medications. currently normotensive CAD - past RCA stent 02/07 at [facility] HLD - on statin Obesity -counseled on lifestyle modification 30 minutes of walking 5 days a week. 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 Paroxysmal AFIB -currently sinus rhythm. On metoprolol and Xarelto for CVA prophylaxis GERD - on PPI. Likely needs GI f/u for his symptoms outpatient, advised this, may need EGD Greater than 70 minutes spent on same day admit and d/c Discharge Information Condition at Discharge: Improved Follow Up: Weeks (1) Disposition/Orders: D/C to Home Scheduled Aspirin (Aspirin) 81 Mg Tab.chew, 1 TAB PO DAILY for heart health, #30 Ref 3 (Reported) Entered as Reported by: SHAYAN WALDRON RN on 04/11/212149 Last Taken: Unknown Dose on 04/11/21899 Last Action: Continued on 04/11/212203 by SHAYAN WALDRON RN Atorvastatin Calcium (Lipitor) 80 Mg Tablet, 80 MG PO HS for FOR CHOLESTEROL, #30 Ref 0 (Reported) Entered as Reported by: SHAYAN WALDRON RN on 04/11/212149 Last Taken: Unknown Dose on 04/10/212099 Last Action: Converted on 04/11/212203 by SHAYAN WALDRON RN Clopidogrel Bisulfate (Clopidogrel) 75 Mg Tablet, 1 TAB PO DAILY for heart stent, #90 Ref 1 (Reported) Entered as Reported by: SHAYAN WALDRON RN on 04/11/212319 Last Taken: Unknown Dose on 04/10/21899 Last Action: Continued on 04/11/212321 by SHAYAN WALDRON RN Ezetimibe (Zetia) 10 Mg Tablet, 1 TAB PO DAILY for HLD for 30 Days, #30 Ref 0 (Reported) Entered as Reported by: SHAYAN WALDRON RN on 04/11/212149 Last Taken: Unknown Dose on 04/11/21899 Last Action: Continued on 04/11/212203 by SHAYAN WALDRON RN Hydroxyzine Hcl (Hydroxyzine Hcl) 25 Mg Tablet, 25 MG PO HS for Anxiety, (Reported) Entered as Reported by: SHAYAN WALDRON RN on 04/11/212149 Last Taken: Unknown Dose on 04/10/212099 Last Action: Continued on 04/11/212203 by SHAYAN WALDRON RN Isosorbide Mononitrate (Isosorbide Mononitrate Er) 60 Mg Tab.er.24h, 1 TAB PO DAILY for HTN, #30 Ref 5 (Reported) Entered as Reported by: SHAYAN WALDRON RN on 04/11/212149 Last Taken: Unknown Dose on 04/11/21899 Last Action: Converted on 04/11/212203 by SHAYAN WALDRON RN Metformin Hcl (Metformin Hcl) 500 Mg Tablet, 500 MG PO HS for ANTI-DIABETIC, Ref 0 (Reported) Entered as Reported by: SHAYAN WALDRON RN on 04/11/212149 Last Taken: Unknown Dose on 04/10/212099 Last Action: Continued on 04/11/212203 by SHAYAN WALDRON RN Metoprolol Tartrate (Metoprolol Tartrate) 50 Mg Tablet, 1 TAB PO BIDWMEALS for HTN, #60 Ref 5 (Reported) Entered as Reported by: SHAYAN WALDRON RN on 04/11/212149 Last Taken: Unknown Dose on 04/11/21899 Last Action: Continued on 04/11/212203 by SHAYAN WALDRON RN Pantoprazole Sodium (Pantoprazole Sodium ) 40 Mg Tablet.dr, 40 MG PO DAILYAC for GERD for 30 Days, #30 Prescribed by: PHANI DUARTE MD on 09/03/20 1031 Last Action: Continued on 04/11/212203 by SHAYAN WALDRON RN Ranolazine (Ranexa) 500 Mg Tab.er.12h, 1 TAB PO BIDWMEALS for angina for 30 Days, #60 Ref 0 (Reported) Entered as Reported by: SHAYAN WALDRON RN on 04/11/212149 Last Taken: Unknown Dose on 6/22/21 1700 Last Action: Continued on 04/11/212203 by SHAYAN WALDRON RN Rivaroxaban (Xarelto) 20 Mg Tablet, 1 TAB PO DAILY for blood thinner for 30 Days, #30 Ref 0 (Reported) with food Entered as Reported by: LANDEN MORALES RN on 07/18/20 1436 Last Action: Converted on 04/11/212203 by SHAYAN WALDRON RN Spironolactone (Spironolactone) 25 Mg Tablet, 1 TAB PO DAILY for HTN, #90 Ref 1 (Reported) Entered as Reported by: SHAYAN WALDRON RN on 04/11/212149 Last Taken: Unknown Dose on 04/11/21 0900 Last Action: Continued on 04/11/212203 by SHAYAN WALDRON RN Scheduled PRN Albuterol Sulfate (Albuterol Sulfate Conc Neb Soln) 2.5 Mg/0.5 Ml Vial.neb, 1 VIAL NEB PRN Q4-6HRS PRN for SHORTNESS OF BREATH, #120 Ref 5 (Reported) Entered as Reported by: SHAYAN WALDRON RN on 04/11/212149 Last Taken: UNKNOWN on Unknown Date & Time Last Action: Converted on 04/11/212203 by SHAYAN WALDRON RN Cyclobenzaprine Hcl (Cyclobenzaprine Hcl) 10 Mg Tablet, 10 MG PO PRN Q6HRS PRN for MUSCLE SPASMS for 10 Days, #30 Prescribed by: PHANI DUARTE MD on 09/03/20 1031 Last Action: Continued on 04/11/212203 by SHAYAN WALDRON RN Nitroglycerin (Nitrostat) 0.4 Mg Tab.subl, 0.4 MG SL PRN Q5MIN PRN for CHEST PAIN, (Reported) Entered as Reported by: SHAYAN WALDRON RN on 04/11/212149 Last Taken: UNKNOWN on Unknown Date & Time Last Action: Continued on 04/11/212203 by SHAYAN WALDRON RN Tramadol Hcl (Tramadol Hcl) 50 Mg Tablet, 50 MG PO PRN Q8HRS PRN for PAIN, (Reported) Entered as Reported by: SHAYAN WALDRON RN on 04/11/212149 Last Taken: UNKNOWN on Unknown Date & Time Last Action: Continued on 04/11/212203 by SHAYAN WALDRON RN Discontinued Medications Amiodarone Hcl (Amiodarone Hcl) 200 Mg Tablet, 200 MG PO DAILY for afib, (Reported) Entered as Reported by: LANDEN MORALES RN on 07/18/20 1438 Last Action: Discontinued on 04/11/212149 by SHAYAN WALDRON RN Atorvastatin Calcium (Lipitor) 40 Mg Tablet, 1 TAB PO QHS for radha, #90 Ref 3 (Reported) Entered as Reported by: LANDEN MORALES RN on 07/18/20 1437 Last Action: Discontinued on 04/11/212149 by SHAYAN WALDRON RN Lisinopril (Lisinopril) 10 Mg Tablet, 1 TAB PO DAILY for htn, #30 Ref 5 (Reported) Entered as Reported by: MEDINA MARQUIS RN on 09/02/20 0356 Last Action: Discontinued on 04/11/212149 by SHAYAN WALDRON RN Metoprolol Tartrate (Metoprolol Tartrate) 25 Mg Tablet, 1 TAB PO BID for heart rate, #180 Ref 1 (Reported) Entered as Reported by: LANDEN MORALES RN on 07/18/20 1439 Last Action: Discontinued on 04/11/212149 by SHAYAN WALDRON RN Ticagrelor (Brilinta) 90 Mg Tablet, 90 MG PO BID for afib, (Reported) Entered as Reported by: LANDEN MORALES RN on 07/18/20 143 Last Action: Discontinued on 04/11/212149 by SHAYAN WALDRON RN Justicifation of Admission Dx: Justifications for Admission: Justification of Admission Dx: Yes NH: Acute STEMI PHANI DUARTE MD Apr 12, 2021 15:19
--- NOTE | 2021-04-12 15:25 | NUR ---
SS following for discharge planning. SS reviewed pt chart and discussed with pt RN. Pt is from home and is currently on room air. Cardiology saw today. Probable discharge to home later today. SS will continue to follow for discharge planning.
[2021-04-12 16:30] VITALS: BP 102/69
--- NOTE | 2021-04-12 16:44 | NUR ---
Patient verbalized understanding of discharge instructions.
== END 2021-04-12 17:00 | disposition home or self-care (01) | DRG 392 ==
LOC: ER 16:47 → 1 WEST ICU 18:00 → ER 19:37
PROVIDERS: ADMIT Family Medicine; ATTEND Family Medicine
DX: K21.9 Gastro-esophageal reflux disease without esophagitis (principal); E78.00 Pure hypercholesterolemia, unspecified; F17.200 Nicotine dependence, unspecified, uncomplicated; I25.10 Atherosclerotic heart disease of native coronary artery without angina pectoris; E78.5 Hyperlipidemia, unspecified; I11.0 Hypertensive heart disease with heart failure; I50.9 Heart failure, unspecified; M19.90 Unspecified osteoarthritis, unspecified site; I48.0 Paroxysmal atrial fibrillation; E66.9 Obesity, unspecified; Z68.38 Body mass index [BMI] 38.0-38.9, adult; Z88.0 Allergy status to penicillin; I25.2 Old myocardial infarction; Z79.01 Long term (current) use of anticoagulants; Z95.5 Presence of coronary angioplasty implant and graft; Z82.49 Family history of ischemic heart disease and other diseases of the circulatory system; I95.2 Hypotension due to drugs
CPT/HCPCS: 36415; 71045; 80048; 80053; 83690; 83735; 83880; 84484; 85025; 85027; 93005; 99285-25; G0378

== ENCOUNTER 2021-06-26 12:49 | Observation (INO) | payer BC ==
[~2021-06-26] VITALS: Ht 175.3 cm; Wt 119.0 kg
[~2021-06-26 12:49] MED LIST changes: +ALBU2.5V14 NEB; +ASPI-630 PO; +CLOP75TA PO; +EZET10TA20 PO; +HYDR25TA PO; +ISOS60TA55 PO; +LIPITOR80 MG PO; +METF500T16 PO; +METO50TA6 PO; +NITR0.4T24 SL; +RANO500T2 PO; +SPIR25TA5 PO; +TRAM50TA PO
--- NOTE | 2021-06-26 13:02 | PHYS DOC ---
Past Medical History Past Medical History: CAD, High Cholesterol, Hypertension, NH Additional Past Medical Histor: STENT, ANGIO Past Surgical History: Angioplasty, Other Additional Past Surgical Histo: CARDIAC STENT Smoking Status: Former Smoker Alcohol Use: None Drug Use: None General Adult EDM: Chief Complaint: CHEST PAIN HPI: HPI: Patient is a 46 year old male who present to ER with substernal chest pain with heart palpitation started 1 hour ago. Patient has history of coronary artery disease, patient denies any cough or fever. Patient denies any chest pain. Patient denies any abdominal pain, no nausea vomiting. Patient was tested positive for COVID-19 on June 01, 2021. Patient was vaccinated for COVID-19 with [employer] in December/January of this year. Patient felt like he could not catch a full breath, having shortness of air. Review of Systems: Review of Systems: Constitutional: Denies fever or chills. [] Eyes: Denies change in visual acuity. [] HENT: Denies nasal congestion or sore throat. [] Respiratory: Denies cough , positive for shortness of breath. [] Cardiovascular: Positive for chest pain, no edema GI: Denies abdominal pain, nausea, vomiting, bloody stools or diarrhea. [] : Denies dysuria. [] Musculoskeletal: Denies back pain or joint pain. [] Integument: Denies rash. [] Neurologic: Denies headache, focal weakness or sensory changes. [] Endocrine: Denies polyuria or polydipsia. [] Lymphatic: Denies swollen glands. [] Psychiatric: Denies depression or anxiety. [] Heart Score: C/O Chest Pain: Yes HEART Score for Chest Pain: HEART Score for Chest Pain Response (Comments) Value History Moderately Suspicious 1 ECG Nonspecific Repolarizatio 1 Age >45 - < 65 1 Risk Factors >3 Risk Factors or Hx CAD 2 Troponin < Normal Limit 0 Total 5 Risk Factors: Risk Factors: DM, Current or recent (<one month) smoker, HTN, HLP, family history of CAD, obesity. Risk Scores: Score 0 - 3: 2.5% MACE over next 6 weeks - Discharge Home Score 4 - 6: 20.3% MACE over next 6 weeks - Admit for Clinical Observation Score 7 - 10: 72.7% MACE over next 6 weeks - Early Invasive Strategies Allergies: Allergies: Allergies Coded Allergies Type Severity Reaction Last Updated Verified Penicillins Allergy Intermediate hives/rash/swelling 07/13/20 Yes Physical Exam: PE: Constitutional: Well developed, well nourished, no acute distress, non-toxic appearance. [] HENT: Normocephalic, atraumatic, bilateral external ears normal, oropharynx moist, no oral exudates, nose normal. [] Eyes: PERRLA, EOMI, conjunctiva normal, no discharge. [] Neck: Normal range of motion, no tenderness, supple, no stridor. [] Cardiovascular:Heart rate regular rhythm, no murmur [] Lungs & Thorax: Bilateral breath sounds clear to auscultation [] Abdomen: Bowel sounds normal, soft, no tenderness, no masses, no pulsatile masses. [] Skin: Warm, dry, no erythema, no rash. [] Back: No tenderness, no CVA tenderness. [] Extremities: No tenderness, no cyanosis, no clubbing, ROM intact, no edema. [] Neurologic: Alert and oriented X 3, normal motor function, normal sensory function, no focal deficits noted. [] Psychologic: Affect normal, judgement normal, mood normal. [] Current Patient Data: Labs: Laboratory Tests Test 06/26/21 13:10 06/26/21 13:45 White Blood Count 8.4 x10^3/uL Red Blood Count 4.86 x10^6/uL Hemoglobin 14.2 g/dL Hematocrit 42.1 % Mean Corpuscular Volume 87 fL Mean Corpuscular Hemoglobin 29 pg Mean Corpuscular Hemoglobin Concent 34 g/dL Red Cell Distribution Width 16.5 % Platelet Count 238 x10^3/uL Neutrophils (%) (Auto) 61 % Lymphocytes (%) (Auto) 29 % Monocytes (%) (Auto) 6 % Eosinophils (%) (Auto) 2 % Basophils (%) (Auto) 1 % Neutrophils # (Auto) 5.2 x10^3/uL Lymphocytes # (Auto) 2.5 x10^3/uL Monocytes # (Auto) 0.5 x10^3/uL Eosinophils # (Auto) 0.1 x10^3/uL Basophils # (Auto) 0.1 x10^3/uL Sodium Level 140 mmol/L Potassium Level 3.5 mmol/L Chloride Level 102 mmol/L Carbon Dioxide Level 28 mmol/L Anion Gap 10 Blood Urea Nitrogen 21 mg/dL Creatinine 1.1 mg/dL Estimated GFR (Cockcroft-Gault) 71.4 BUN/Creatinine Ratio 19 Glucose Level 214 mg/dL Calcium Level 9.1 mg/dL Magnesium Level 1.8 mg/dL Total Bilirubin 0.4 mg/dL Aspartate Amino Transf (AST/SGOT) 13 U/L Alanine Aminotransferase (ALT/SGPT) 33 U/L Alkaline Phosphatase 48 U/L Troponin I Quantitative < 0.017 ng/mL DX-Mhg-D-Type Natriuretic Peptide 113 pg/mL Total Protein 6.7 g/dL Albumin 3.2 g/dL Albumin/Globulin Ratio 0.9 Lipase 74 U/L SARS-CoV-2 Antigen (Rapid) Negative EKG: EKG: EKG was done at 1257, heart rate of 97 bpm, sinus rhythm, no ST segment elevation, Radiology/Procedures: Radiology/Procedures: [facility] [address] [place] [address] IMAGING REPORT Signed PATIENT: CONRAD TRAN ACCOUNT: [id number] : 1975 LOCATION: ER AGE: 46 SEX: M EXAM STATUS: PRE ER ORD. PHYSICIAN: SAURABH UNGER DO REASON: chest pain PROCEDURE: PORTABLE CHEST 1V INDICATION: Reason: chest pain / Spl. Instructions: / History: COMPARISON: April 11, 2021 FINDINGS: Single view of chest obtained. Mild interstitial prominence with haziness of the right lower lung. Cardiac silhouette is similar to prior. IMPRESSION: * Mild hazy opacity at the right lung base. A portion of this is likely secondary to overlap of soft tissue structures but superimposed atelectasis or mild infiltrate could have this appearance. Electronically signed by: Sarai Munoz MD (06/26/2021 1:20 PM) [id number] DICTATED and SIGNED BY: SARAI MUNOZ MD DATE: 06/26/21 [id number] 0 Course & Med Decision Making: Course & Med Decision Making Labs and Imaging studies reviewed. (See chart for details) Patient is a 38-year-old male who present to ER due to substernal chest pain associated with heart palpitation and trouble breathing. EKG and cardiac enzymes came back normal so far due to his risk factors patient will be admitted for observation. [] Dragon Disclaimer: Dragon Disclaimer: This electronic medical record was generated, in whole or in part, using a voice recognition dictation system. Departure Departure Impression: Primary Impression: Chest pain Disposition: ADMITTED INPATIENT Admitting Physician: [facility] (Dr. Meyer) Condition: STABLE Referrals: LADY FERNANDES (PCP) SAURABH UNGER DO Jun 26, 2021 13:02
[2021-06-26 13:19] LABS: BASO # 0.1 x10^3/uL (0.0-0.2); BASO % 1 % (0-3); EOS # 0.1 x10^3/uL (0.0-0.7); EOS % 2 % (0-3); HEMATOCRIT 42.1 % (39.0-53.0); HEMOGLOBIN 14.2 g/dL (13.0-17.5); LYMPH # 2.5 x10^3/uL (1.0-4.8); LYMPH % 29 % (24-48); MEAN CORPUSCULAR HEMOGLOBIN 29 pg (25-35); MEAN CORPUSCULAR HGB CONC 34 g/dL (31-37); MEAN CORPUSCULAR VOLUME 87 fL (79-100); MONO # 0.5 x10^3/uL (0.0-1.1); MONO % 6 % (0-9); NEUT # 5.2 x10^3/uL (1.8-7.7); NEUT % 61 % (31-73); PLATELET COUNT 238 x10^3/uL (140-400); RED BLOOD COUNT 4.86 x10^6/uL (4.30-5.70); RED CELL DISTRIBUTION WIDTH 16.5 % (11.5-14.5); WHITE BLOOD COUNT 8.4 x10^3/uL (4.0-11.0)
--- NOTE | 2021-06-26 13:23 | RAD ---
INDICATION: Reason: chest pain / Spl. Instructions: / History: COMPARISON: April 11, 2021 FINDINGS: Single view of chest obtained. Mild interstitial prominence with haziness of the right lower lung. Cardiac silhouette is similar to prior. IMPRESSION: * Mild hazy opacity at the right lung base. A portion of this is likely secondary to overlap of soft tissue structures but superimposed atelectasis or mild infiltrate could have this appearance. Electronically signed by: Jesús Mcdonough MD (06/26/2021 1:20 PM) [id number]
[2021-06-26 13:35] LABS: CALCIUM 9.1 mg/dL (8.5-10.1); CREATININE 1.1 mg/dL (0.7-1.3); GFR 71.4; POTASSIUM 3.5 mmol/L (3.5-5.1)
[2021-06-26 13:39] LABS: ALBUMIN 3.2 g/dL (3.4-5.0); ALBUMIN/GLOBULIN RATIO 0.9 (1.0-1.7); MAGNESIUM 1.8 mg/dL (1.8-2.4); TOTAL BILIRUBIN 0.4 mg/dL (0.2-1.0); TOTAL PROTEIN 6.7 g/dL (6.4-8.2)
[2021-06-26] MEDS ORDERED: IOHEXOL 350 MG/ML 100 ML VIAL. IV ONE (14:30)
[2021-06-26] MEDS ORDERED: CONTRAST GIVEN. MC PRN (14:45)
--- NOTE | 2021-06-26 14:52 | RAD ---
Clinical Indication: Chest pain. PE protocol axial CTA images of the chest was performed after the administration of 100 cc Omnipaque 350. Coronal and sagittal MIP images of the pulmonary arteries are available. Comparison: 09/02/2020. Findings: The partially visualized thyroid gland is normal in appearance. The heart and great vessels are normal. No mediastinal, hilar, or axillary adenopathy is seen. Small prevascular and AP window lymph nodes a re stable. No pneumothorax, effusion, focal consolidation, air space or interstitial disease is seen. No pulmonary arterial filling defects are seen. The partially-visualized upper abdomen is unremarkable. The bony structures are unremarkable. Impression: 1. No evidence of pulmonary embolus. 2. Unremarkable CT examination of the chest. Exposure: One or more of the following individualized dose reduction techniques were utilized for thi s examination: 1. Automated exposure control 2. Adjustment of the mA and/or kV according to patient size 3. Use of iterative reconstruction technique Electronically signed by: Yaakov Pinon MD (06/26/2021 2:50 PM) [facility]
[2021-06-26] MEDS ORDERED: MORPHINE SULFATE 2 MG/ML INJ. IVP PRN (16:00)
[2021-06-26] MEDS ORDERED: SENNOSIDES 8.6 MG TABLET PO PRN (16:00)
[2021-06-26] MEDS ORDERED: ONDANSETRON PF 4 MG/2 ML VIAL. IVP PRN (16:00)
[2021-06-26] MEDS ORDERED: DOCUSATE SODIUM 100 MG CAPSULE. PO PRN (16:00)
[2021-06-26] MEDS ORDERED: NITROGLYCERIN SUBLINGUAL 0.4 MG BOTTLE OF 25. SL PRN ×2 (16:00→20:30)
[2021-06-26] MEDS ORDERED: MORPHINE SULFATE 2 MG/ML INJ. IV PRN (16:00)
[2021-06-26] MEDS ORDERED: DEXTROSE 50% 25 GM / 50ML DISP.SYRIN. IV PRN (16:00)
[2021-06-26] MEDS ORDERED: PROCHLORPERAZINE 10 MG/2 ML VIAL. IV PRN (16:00)
[2021-06-26] MEDS ORDERED: ACETAMINOPHEN 325 MG TABLET. PO PRN (16:00)
--- NOTE | 2021-06-26 16:02 | PDOC1 ---
History and Physical Date of Service: DOS: DATE: 06/26/21 TIME: 15:57 Chief Complaint: Chief Complain: chest pain History of Present Illness: HPI: 46-year-old male with past medical history of CAD with stents, dyslipidemia, hypertension, [place] in the past, morbid obesity, who presents with substernal pressure-like chest pain and "heart thumping" this morning while at work. Pain did not radiate to his arms but mainly it stayed in the left side below his nipple. 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 Patient is on aspirin Plavix and Xarelto. Patient states that he was started on Xarelto after his stents were placed and he was told that he needs to stay on this for more anticoagulation. He denies any fevers, cough, shortness of breath, abdominal pain, diarrhea or bloody stools or dysuria. He is vaccinated for Covid this January of this year. Patient also claims he did have some difficulty breathing during his episode of pain. Patient states that this did not feel the same when he had a heart attack. Past Medical/Surgical History: PMH/PSH: Past Medical History: CAD, High Cholesterol, Hypertension, [place] STENT, ANGIO Past Surgical History: Angioplasty, CARDIAC STENT Allergies: Allergies: Coded Allergies: Penicillins (Verified Allergy, Intermediate, hives/rash/swelling, 07/13/20) Family History: Family History: Reviewed with no relevant findings Social History: Social History: Smoking Status: Former Smoker Alcohol Use: None Drug Use: None Current Medications: Current Medications Current Medications Iohexol (Omnipaque 350 Mg/ml) 100 ml 1X ONCE IV Last administered on 06/26/21at 14:37; Start 06/26/21 at 14:30; Stop 06/26/21 at 14:34; Status DC Info (CONTRAST GIVEN -- Rx MONITORING) 1 each PRN DAILY PRN MC SEE COMMENTS; Start 06/26/21 at 14:45; Stop 06/28/21 at 14:44 Active Scripts Active Pantoprazole Sodium (Pantoprazole Sodium) 40 Mg Tablet. 40 Mg PO DAILYAC 30 Days Cyclobenzaprine Hcl 10 Mg Tablet 10 Mg PO PRN Q6HRS PRN 10 Days Reported Clopidogrel (Clopidogrel Bisulfate) 75 Mg Tablet 1 Tab PO DAILY Nitrostat (Nitroglycerin) 0.4 Mg Tab.subl 0.4 Mg SL PRN Q5MIN PRN Tramadol Hcl 50 Mg Tablet 50 Mg PO PRN Q8HRS PRN Albuterol Sulfate Conc Neb Soln (Albuterol Sulfate) 2.5 Mg/0.5 Ml Vial.neb 1 Vial NEB PRN Q4-6HRS PRN Hydroxyzine Hcl 25 Mg Tablet 25 Mg PO HS Metoprolol Tartrate 50 Mg Tablet 1 Tab PO BIDWMEALS Lipitor (Atorvastatin Calcium) 80 Mg Tablet 80 Mg PO HS Spironolactone 25 Mg Tablet 1 Tab PO DAILY Zetia (Ezetimibe) 10 Mg Tablet 1 Tab PO DAILY 30 Days Isosorbide Mononitrate Er (Isosorbide Mononitrate) 60 Mg Tab.er.24h 1 Tab PO DAILY Ranexa (Ranolazine) 500 Mg Tab.er.12h 1 Tab PO BIDWMEALS 30 Days Metformin Hcl 500 Mg Tablet 500 Mg PO HS Aspirin 81 Mg Tab.chew 1 Tab PO DAILY Xarelto (Rivaroxaban) 20 Mg Tablet 1 Tab PO DAILY 30 Days with food ROS: Review of Systems Review of System REVIEW OF SYSTEMS: GENERAL: Denies weakness SKIN: No bruising, hair changes or rashes. EYES: No blurred, double or loss of vision. NOSE AND THROAT: No history of nosebleeds, hoarseness or sore throat. HEART: No history of palpitations, chest pain or shortness of breath on exertion. LUNGS: Denies cough, hemoptysis, wheezing or shortness of breath. GASTROINTESTINAL: Denies changes in appetite, nausea, vomiting, diarrhea or constipation. GENITOURINARY: No history of frequency, urgency, hesitancy or nocturia. NEUROLOGIC: Denies history of numbness, tingling, or tremor. PSYCHIATRIC: No history of panic, anxiety or depression. ENDOCRINE: No history of heat or cold intolerance, polyuria or polydipsia. EXTREMITIES: Denies joint pain, pain on walking or stiffness. Physical Exam: Vital Signs: Vital Signs Date Time Temp Pulse Resp B/P (MAP) Pulse Ox O2 Delivery O2 Flow Rate FiO2 06/26/21 15:12 84 25 130/79 (96) 95 Room Air 06/26/21 13:00 98.6 98.6 Physcial Exam: General: Well developed, well nourished, no acute distress, well appearing HEENT: Pupils equally round and reactive to light, EOMI, no discharge, normal conjunctiva Neck: Supple, no nuchal rigidity, no JVD, trachea midline, no tenderness Cardiac: RRR, no murmurs, no gallops, no rubs Chest/Lungs: CTAB, no wheeze, no rhonchi, no crackles. Nontender upon palpation Abdomen: Obese, soft, non-distended, no guarding, no peritoneal signs, non- tender Back: No tenderness Extremities: no edema, pulses intact, non-tender,capillary refill <3 sec bilateral upper and lower extremities, Neuro: Alert and oriented x 4, no focal deficits, normal speech Labs: Labs: Laboratory Tests Test 06/26/21 13:10 06/26/21 13:45 White Blood Count 8.4 x10^3/uL (4.0-11.0) Red Blood Count 4.86 x10^6/uL (4.30-5.70) Hemoglobin 14.2 g/dL (13.0-17.5) Hematocrit 42.1 % (39.0-53.0) Mean Corpuscular Volume 87 fL (79-100) Mean Corpuscular Hemoglobin 29 pg (25-35) Mean Corpuscular Hemoglobin Concent 34 g/dL (31-37) Red Cell Distribution Width 16.5 % (11.5-14.5) Platelet Count 238 x10^3/uL (140-400) Neutrophils (%) (Auto) 61 % (31-73) Lymphocytes (%) (Auto) 29 % (24-48) Monocytes (%) (Auto) 6 % (0-9) Eosinophils (%) (Auto) 2 % (0-3) Basophils (%) (Auto) 1 % (0-3) Neutrophils # (Auto) 5.2 x10^3/uL (1.8-7.7) Lymphocytes # (Auto) 2.5 x10^3/uL (1.0-4.8) Monocytes # (Auto) 0.5 x10^3/uL (0.0-1.1) Eosinophils # (Auto) 0.1 x10^3/uL (0.0-0.7) Basophils # (Auto) 0.1 x10^3/uL (0.0-0.2) Sodium Level 140 mmol/L (136-145) Potassium Level 3.5 mmol/L (3.5-5.1) Chloride Level 102 mmol/L (98-107) Carbon Dioxide Level 28 mmol/L (21-32) Anion Gap 10 (6-14) Blood Urea Nitrogen 21 mg/dL (8-26) Creatinine 1.1 mg/dL (0.7-1.3) Estimated GFR (Cockcroft-Gault) 71.4 BUN/Creatinine Ratio 19 (6-20) Glucose Level 214 mg/dL (70-99) Calcium Level 9.1 mg/dL (8.5-10.1) Magnesium Level 1.8 mg/dL (1.8-2.4) Total Bilirubin 0.4 mg/dL (0.2-1.0) Aspartate Amino Transf (AST/SGOT) 13 U/L (15-37) Alanine Aminotransferase (ALT/SGPT) 33 U/L (16-63) Alkaline Phosphatase 48 U/L (46-116) Troponin I Quantitative < 0.017 ng/mL (0.000-0.055) IH-Zry-V-Type Natriuretic Peptide 113 pg/mL (0-124) Total Protein 6.7 g/dL (6.4-8.2) Albumin 3.2 g/dL (3.4-5.0) Albumin/Globulin Ratio 0.9 (1.0-1.7) Lipase 74 U/L (73-393) SARS-CoV-2 Antigen (Rapid) Negative (NEGATIVE) Laboratory Tests Test 06/26/21 13:10 06/26/21 13:45 White Blood Count 8.4 x10^3/uL (4.0-11.0) Red Blood Count 4.86 x10^6/uL (4.30-5.70) Hemoglobin 14.2 g/dL (13.0-17.5) Hematocrit 42.1 % (39.0-53.0) Mean Corpuscular Volume 87 fL (79-100) Mean Corpuscular Hemoglobin 29 pg (25-35) Mean Corpuscular Hemoglobin Concent 34 g/dL (31-37) Red Cell Distribution Width 16.5 % (11.5-14.5) Platelet Count 238 x10^3/uL (140-400) Neutrophils (%) (Auto) 61 % (31-73) Lymphocytes (%) (Auto) 29 % (24-48) Monocytes (%) (Auto) 6 % (0-9) Eosinophils (%) (Auto) 2 % (0-3) Basophils (%) (Auto) 1 % (0-3) Neutrophils # (Auto) 5.2 x10^3/uL (1.8-7.7) Lymphocytes # (Auto) 2.5 x10^3/uL (1.0-4.8) Monocytes # (Auto) 0.5 x10^3/uL (0.0-1.1) Eosinophils # (Auto) 0.1 x10^3/uL (0.0-0.7) Basophils # (Auto) 0.1 x10^3/uL (0.0-0.2) Sodium Level 140 mmol/L (136-145) Potassium Level 3.5 mmol/L (3.5-5.1) Chloride Level 102 mmol/L (98-107) Carbon Dioxide Level 28 mmol/L (21-32) Anion Gap 10 (6-14) Blood Urea Nitrogen 21 mg/dL (8-26) Creatinine 1.1 mg/dL (0.7-1.3) Estimated GFR (Cockcroft-Gault) 71.4 BUN/Creatinine Ratio 19 (6-20) Glucose Level 214 mg/dL (70-99) Calcium Level 9.1 mg/dL (8.5-10.1) Magnesium Level 1.8 mg/dL (1.8-2.4) Total Bilirubin 0.4 mg/dL (0.2-1.0) Aspartate Amino Transf (AST/SGOT) 13 U/L (15-37) Alanine Aminotransferase (ALT/SGPT) 33 U/L (16-63) Alkaline Phosphatase 48 U/L (46-116) Troponin I Quantitative < 0.017 ng/mL (0.000-0.055) EA-Ejp-H-Type Natriuretic Peptide 113 pg/mL (0-124) Total Protein 6.7 g/dL (6.4-8.2) Albumin 3.2 g/dL (3.4-5.0) Albumin/Globulin Ratio 0.9 (1.0-1.7) Lipase 74 U/L (73-393) SARS-CoV-2 Antigen (Rapid) Negative (NEGATIVE) Images: Images PROCEDURE: CT ANGIOGRAPHY CHEST Impression: 1. No evidence of pulmonary embolus. 2. Unremarkable CT examination of the chest. PROCEDURE: PORTABLE CHEST 1V INDICATION: Reason: chest pain / Spl. Instructions: / History: COMPARISON: April 11, 2021 FINDINGS: Single view of chest obtained. Mild interstitial prominence with haziness of the right lower lung. Cardiac silhouette is similar to prior. IMPRESSION: * Mild hazy opacity at the right lung base. A portion of this is likely secondary to overlap of soft tissue structures but superimposed atelectasis or mild infiltrate could have this appearance. Assessment/Plan Assessment/Plan Chest pain concerning for unstable angina/NSTEMI Diabetes mellitus type 2 Morbid obesity Heart score = EKG showing no acute ST changes Troponin negative x2 Continue aspirin, consider Plavix if intermediate risk will defer this to cardiology Cardiology consulted for predischarge stress testing or left heart cath Continue nitroglycerin as needed for pain Continue beta-lyndsey if blood pressures allow Continue high intensity statins IV morphine as needed Consider Lovenox Maintain O2 sats between 88 to 95% Trend troponins Repeat EKG in the a.m. Continue telemetry monitoring Monitor for electrolyte abnormalities Avoid NSAIDs Justifications for Admission Other Justification PRISCILA PENALOZA MD Jun 26, 2021 16:02
[2021-06-26] MEDS ORDERED: RIVAROXABAN 10 MG TABLET. PO SCH (17:00)
[2021-06-26] MEDS ORDERED: ENOXAPARIN 40 MG/0.4 ML SYRINGE. SQ SCH (17:00)
[2021-06-26] MEDS: INSULIN LISPRO 300 UNITS/3 ML VIAL. SQ SCH (17:00)
[2021-06-26] MEDS: IV NORMAL SALINE 1000ML BAG 1,000 ML IV SCH (17:03)
[2021-06-26 19:00] VITALS: BP 148/85
--- NOTE | 2021-06-26 20:15 | NUR ---
ADMISSION NOTE Pt admitted to room 572 at approx 1815 from ER. Admission assessment and history completed after shift change. Pt is A/Ox4, denies any pain at this time. POC discussed with pt, pt denies any questions. Belongings all left at bedside. Call light in reach. Offered pt a gown and pj pants, but pt declined, also did not want to change out of his own pants. Will monitor.
[2021-06-26] MEDS ORDERED: CYCLOBENZAPRINE 10 MG TABLET. PO PRN (20:30)
[2021-06-26] MEDS ORDERED: NON FORMULARY ITEM (Albuterol Sulfate (Albuterol Sulfate Conc Neb Soln) 1 VIAL) NEB PRN (20:30)
[2021-06-26] MEDS ORDERED: ALBUTEROL SULFATE 2.5 MG/3 ML NEBU. NEB PRN (20:45)
[2021-06-26] MEDS ORDERED: ATORVASTATIN CALCIUM 40 MG TABLET. PO SCH (21:00)
[2021-06-26] MEDS: METOPROLOL TART IMMED RELEASE 50 MG TABLET. PO SCH (21:44)
[2021-06-26] MEDS: RANOLAZINE 500 MG TAB.ER.12H PO SCH (21:44)
[2021-06-26 23:00] VITALS: BP 117/76
--- NOTE | 2021-06-26 23:17 | EKG ---
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
[2021-06-27 01:11] LABS: HEMOGLOBIN A1C 7.6 % (4.8-5.6)
[2021-06-27 02:53] VITALS: BP 107/73
[2021-06-27 07:00] VITALS: BP 109/82
[2021-06-27 07:01] LABS: BASO # 0.1 x10^3/uL (0.0-0.2); BASO % 1 % (0-3); EOS # 0.2 x10^3/uL (0.0-0.7); EOS % 2 % (0-3); HEMATOCRIT 42.1 % (39.0-53.0); HEMOGLOBIN 14.1 g/dL (13.0-17.5); LYMPH % 27 % (24-48); MEAN CORPUSCULAR HEMOGLOBIN 30 pg (25-35); MEAN CORPUSCULAR HGB CONC 34 g/dL (31-37); MEAN CORPUSCULAR VOLUME 88 fL (79-100); MONO # 0.6 x10^3/uL (0.0-1.1); MONO % 8 % (0-9); NEUT # 4.4 x10^3/uL (1.8-7.7); NEUT % 62 % (31-73); PLATELET COUNT 218 x10^3/uL (140-400); RED BLOOD COUNT 4.78 x10^6/uL (4.30-5.70); RED CELL DISTRIBUTION WIDTH 16.8 % (11.5-14.5); WHITE BLOOD COUNT 7.1 x10^3/uL (4.0-11.0)
[2021-06-27 07:14] LABS: CALCIUM 8.4 mg/dL (8.5-10.1); GFR 79.8; PHOSPHORUS 3.5 mg/dL (2.6-4.7); POTASSIUM 4.5 mmol/L (3.5-5.1)
[2021-06-27] MEDS ORDERED: PANTOPRAZOLE 40 MG TABLET.DR. PO SCH (07:30)
[2021-06-27] MEDS ORDERED: ASPIRIN ENTERIC COATED 81 MG TABLET.DR. PO SCH (08:00)
[2021-06-27] MEDS: INSULIN LISPRO 300 UNITS/3 ML VIAL. SQ SCH ×2 (08:00→11:53)
[2021-06-27] MEDS: METOPROLOL TART IMMED RELEASE 50 MG TABLET. PO SCH (08:38)
[2021-06-27] MEDS: RANOLAZINE 500 MG TAB.ER.12H PO SCH (08:39)
[2021-06-27] MEDS: IV NORMAL SALINE 1000ML BAG 1,000 ML IV SCH ×2 (08:39→11:53)
[2021-06-27] MEDS ORDERED: EZETIMIBE 10 MG TABLET. PO SCH (09:00)
[2021-06-27] MEDS ORDERED: ASPIRIN CHEWABLE 81 MG TABLET. PO SCH (09:00)
[2021-06-27] MEDS ORDERED: CLOPIDOGREL BISULFATE 75 MG TABLET PO SCH (09:00)
--- NOTE | 2021-06-27 10:45 | PDOC2 ---
ST[facility] ADMINISTRATION VICE PRESIDENT 06/27/21 1044: CARDIAC CONSULT DATE OF CONSULT Date of Consult DATE: 06/27/21 TIME: 10:28 REASON FOR CONSULT Reason for Consult: Chest pain REFERRING PHYSICIAN Referring Physician: Mitch SOURCE Source: Chart review, Patient HISTORY OF PRESENT ILLNESS HISTORY OF PRESENT ILLNESS This is a pleasant 46 yo male admitted for complains of chest discomfort. Does not described this as pain per se but rather felt like his heart was beating hard to his left chest and was feeling SOA. No palpitations no nausea or vomiting. Denies any nausea or vomiting. This occurred at work and has not happened in a while and has not recurred overnight. He did take 3 NTG and and has not recurrence since. He is significant for wt gain and has had multiple PCIs. PAST MEDICAL HISTORY Past Medical History Cardiovascular: CAD, CHF, HTN, [place], Hyperlipidemia, Other Pulmonary: No pertinent hx CENTRAL NERVOUS SYSTEM: Other GI: GERD Heme/Onc: No pertinent hx Hepatobiliary: No pertinent hx Psych: No pertinent hx Musculoskeletal: Osteoarthritis Rheumatologic: No pertinent hx Infectious disease: No pertinent hx Renal/: No pertinent hx PAST SURGICAL HISTORY Past Surgical History Tonsillectomy, PCIs FAMILY HISTORY Family History: Hypertension SOCIAL HISTORY Smoke: Quit ALCOHOL: none Drugs: None Lives: with Family CURRENT MEDICATIONS CURRENT MEDICATIONS Current Medications Medications (Trade) Dose Ordered Sig/Delvis Route PRN Reason Start Time Stop Time Status Last Admin Dose Admin Iohexol (Omnipaque 350 Mg/ml) 100 ml 1X ONCE IV 06/26/21 14:30 06/26/21 14:34 DC 06/26/21 14:37 Sodium Chloride 1,000 ml @ 100 mls/hr Q10H IV 06/26/21 16:00 06/27/21 08:39 Enoxaparin Sodium (Lovenox 40mg Syringe) 40 mg Q24H SQ 06/26/21 17:00 06/26/21 20:36 DC 06/26/21 17:09 Aspirin (Aspirin Chewable) 81 mg DAILY PO 06/27/21 09:00 06/27/21 08:38 Clopidogrel Bisulfate (Plavix) 75 mg DAILY PO 06/27/21 09:00 06/27/21 08:39 EZETIMIBE (Zetia) 10 mg DAILY PO 06/27/21 09:00 06/27/21 08:38 Metoprolol Tartrate (Lopressor) 50 mg BIDWMEALS PO 06/26/21 21:00 06/27/21 08:38 Pantoprazole Sodium (Protonix) 40 mg DAILYAC PO 06/27/21 07:30 06/27/21 08:38 Ranolazine (Ranexa) 500 mg BIDWMEALS PO 06/26/21 21:00 06/27/21 08:39 Atorvastatin Calcium (Lipitor) 80 mg QHS PO 06/26/21 21:00 06/26/21 21:44 ALLERGIES ALLERGIES: Coded Allergies: Penicillins (Verified Allergy, Intermediate, hives/rash/swelling, 07/13/20) ROS Review of System 14 point ROS evaluated with pertinent positives noted per HPI PHYSICAL EXAM General: Alert, Oriented X3, Cooperative, No acute distress HEENT: Atraumatic, Mucous membr. moist/pink Lungs: Clear to auscultation, Normal air movement Heart: Regular rate (SR), Normal S1, Normal S2, No murmurs Abdomen: Soft, No tenderness, Other (obese) Extremities: No cyanosis, Other (1+ bilateral LE pitting edema) Skin: No breakdown, No significant lesion Neuro: Normal speech, Sensation intact Psych/Mental Status: Mental status NL, Mood NL MUSCULOSKELETAL: Osteoarthritic changes both hands VITALS/I&O VITALS/I&O: Vital Signs Date Time Temp Pulse Resp B/P (MAP) Pulse Ox O2 Delivery O2 Flow Rate FiO2 06/27/21 08:39 78 109/82 06/27/21 08:30 Room Air 06/27/21 07:00 97.7 20 96 97.7 I & O 06/26/21 06/26/21 06/27/21 15:00 23:00 07:00 Intake Total 200 ml 100 ml Balance 200 ml 100 ml LABS Lab: Laboratory Tests Test 06/26/21 13:10 06/26/21 13:45 06/26/21 15:40 06/26/21 18:30 White Blood Count 8.4 x10^3/uL (4.0-11.0) Red Blood Count 4.86 x10^6/uL (4.30-5.70) Hemoglobin 14.2 g/dL (13.0-17.5) Hematocrit 42.1 % (39.0-53.0) Mean Corpuscular Volume 87 fL (79-100) Mean Corpuscular Hemoglobin 29 pg (25-35) Mean Corpuscular Hemoglobin Concent 34 g/dL (31-37) Red Cell Distribution Width 16.5 % (11.5-14.5) H Platelet Count 238 x10^3/uL (140-400) Neutrophils (%) (Auto) 61 % (31-73) Lymphocytes (%) (Auto) 29 % (24-48) Monocytes (%) (Auto) 6 % (0-9) Eosinophils (%) (Auto) 2 % (0-3) Basophils (%) (Auto) 1 % (0-3) Neutrophils # (Auto) 5.2 x10^3/uL (1.8-7.7) Lymphocytes # (Auto) 2.5 x10^3/uL (1.0-4.8) Monocytes # (Auto) 0.5 x10^3/uL (0.0-1.1) Eosinophils # (Auto) 0.1 x10^3/uL (0.0-0.7) Basophils # (Auto) 0.1 x10^3/uL (0.0-0.2) Sodium Level 140 mmol/L (136-145) Potassium Level 3.5 mmol/L (3.5-5.1) Chloride Level 102 mmol/L (98-107) Carbon Dioxide Level 28 mmol/L (21-32) Anion Gap 10 (6-14) Blood Urea Nitrogen 21 mg/dL (8-26) Creatinine 1.1 mg/dL (0.7-1.3) Estimated GFR (Cockcroft-Gault) 71.4 BUN/Creatinine Ratio 19 (6-20) Glucose Level 214 mg/dL (70-99) H Hemoglobin A1c 7.6 % (4.8-5.6) H Calcium Level 9.1 mg/dL (8.5-10.1) Magnesium Level 1.8 mg/dL (1.8-2.4) Total Bilirubin 0.4 mg/dL (0.2-1.0) Aspartate Amino Transferase (AST) 13 U/L (15-37) L Alanine Aminotransferase (ALT) 33 U/L (16-63) Alkaline Phosphatase 48 U/L (46-116) Troponin I Quantitative < 0.017 ng/mL (0.000-0.055) < 0.017 ng/mL (0.000-0.055) < 0.017 ng/mL (0.000-0.055) FN-Flh-N-Type Natriuretic Peptide 113 pg/mL (0-124) Total Protein 6.7 g/dL (6.4-8.2) Albumin 3.2 g/dL (3.4-5.0) L Albumin/Globulin Ratio 0.9 (1.0-1.7) L Lipase 74 U/L (73-393) SARS-CoV-2 RNA (EMMY) Negative (Negative) SARS-CoV-2 Antigen (Rapid) Negative (NEGATIVE) Test 06/26/21 20:21 06/27/21 06:30 06/27/21 07:41 Glucose (Fingerstick) 155 mg/dL (70-99) H 110 mg/dL (70-99) H White Blood Count 7.1 x10^3/uL (4.0-11.0) Red Blood Count 4.78 x10^6/uL (4.30-5.70) Hemoglobin 14.1 g/dL (13.0-17.5) Hematocrit 42.1 % (39.0-53.0) Mean Corpuscular Volume 88 fL (79-100) Mean Corpuscular Hemoglobin 30 pg (25-35) Mean Corpuscular Hemoglobin Concent 34 g/dL (31-37) Red Cell Distribution Width 16.8 % (11.5-14.5) H Platelet Count 218 x10^3/uL (140-400) Neutrophils (%) (Auto) 62 % (31-73) Lymphocytes (%) (Auto) 27 % (24-48) Monocytes (%) (Auto) 8 % (0-9) Eosinophils (%) (Auto) 2 % (0-3) Basophils (%) (Auto) 1 % (0-3) Neutrophils # (Auto) 4.4 x10^3/uL (1.8-7.7) Lymphocytes # (Auto) 2.0 x10^3/uL (1.0-4.8) Monocytes # (Auto) 0.6 x10^3/uL (0.0-1.1) Eosinophils # (Auto) 0.2 x10^3/uL (0.0-0.7) Basophils # (Auto) 0.1 x10^3/uL (0.0-0.2) Sodium Level 142 mmol/L (136-145) Potassium Level 4.5 mmol/L (3.5-5.1) # Chloride Level 107 mmol/L (98-107) Carbon Dioxide Level 31 mmol/L (21-32) Anion Gap 4 (6-14) L Blood Urea Nitrogen 14 mg/dL (8-26) Creatinine 1.0 mg/dL (0.7-1.3) Estimated GFR (Cockcroft-Gault) 79.8 Glucose Level 128 mg/dL (70-99) H Calcium Level 8.4 mg/dL (8.5-10.1) L Phosphorus Level 3.5 mg/dL (2.6-4.7) Magnesium Level 2.0 mg/dL (1.8-2.4) Laboratory Tests 06/26/21 13:10 06/27/21 06:30 Laboratory Tests 06/26/21 13:10 06/27/21 06:30 ASSESSMENT/PLAN ASSESSMENT/PLAN 1. Chest pain: possibly due to high BP. Doubt ACS Occurred at work. No BP check at that time. No further recurrence 2. Hx of Chronic stable angina 3. CAD: past RCA stents, most recent 01/2021, clinically stable 4. HTN: controlled 5. HLP 6. Obesity/Deconditioning 7. DM2: new per PCP A1C 7.6 8. PAFIB: SR 9. GIUSEPPE: still waiting n sleep study report Recommendations 1. Continue antianginals. Encouraged HBPM particularly when symptomatic 2. Continue xarelto for stroke prevention . low dose ASA and plavix 3. Follow up in office as scheduled 4. If his symptoms recur then would consider outpt stres test. 5. He currently has been following up with cardiology MIKA SALINAS MD 06/27/21 1722: [facility] ROMERO ADMINISTRATION VICE PRESIDENT Jun 27, 2021 10:44 MIKA SALINAS MD Jun 27, 2021 17:22
[2021-06-27 11:00] VITALS: BP 108/77
--- NOTE | 2021-06-27 11:21 | NUR ---
SW following. Discussed with RN, pt from home, room air, cardiac diet, rapid COVID-19 negative. Cardiology following. RN advised no SW needs. Anticipate discharge home today. SW will continue to follow.
--- NOTE | 2021-06-27 11:54 | NUR ---
IV fluids nonadministered by this RN. Previous bag still infusing. Refer to EMAR for additional details.
--- NOTE | 2021-06-27 12:20 | PDOC3 ---
[facility]-Discharge Summary Date of Admission: Date of Admission: Jun 26, 2021 Date of Discharge: Date of Discharge: Jun 27, 2021 Admission Diagnosis: Problems: (1) Chest pain (2) CAD (coronary artery disease) Consults: Consults: Cardiology Hospital Course: Hospital Course: 46-year-old male with past medical history of CAD with stents, dyslipidemia, hypertension, [place] in the past, morbid obesity, who presents with substernal pressure-like chest pain and "heart thumping" this morning while at work. Pain did not radiate to his arms but mainly it stayed in the left side below his nipp le. 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 Patient is on aspirin Plavix and Xarelto. Patient states that he was started on Xarelto after his stents were placed and he was told that he needs to stay on this for more anticoagulation. He denies any fevers, cough, shortness of breath, abdominal pain, diarrhea or bloody stools or dysuria. He is vaccinated for Covid this January of this year. Patient also claims he did have some difficulty breathing during his episode of pain. Patient states that this did not feel the same when he had a heart attack. 06/27 Patient seen and examined at bedside. Asymptomatic. Cardiac work-up negative. Appropriate for discharge. Disposition: Disposition/Orders: D/C to Home Activity: Activity: Resume previous activity Diet: Diet: Cardiac Medications: Home Meds Active Scripts Pantoprazole Sodium (PANTOPRAZOLE SODIUM ) 40 Mg Tablet.dr, 40 MG PO DAILYAC for GERD for 30 Days, #30 TAB Prov:PHANI DUARTE MD 09/03/20 Cyclobenzaprine Hcl (CYCLOBENZAPRINE HCL) 10 Mg Tablet, 10 MG PO PRN Q6HRS PRN for MUSCLE SPASMS for 10 Days, #30 TAB Prov:PHANI DUARTE MD 09/03/20 Reported Medications Clopidogrel Bisulfate (CLOPIDOGREL) 75 Mg Tablet, 1 TAB PO DAILY for heart stent, #90 TAB 1 Refill 04/11/21 Nitroglycerin (NITROSTAT) 0.4 Mg Tab.subl, 0.4 MG SL PRN Q5MIN PRN for CHEST PAIN, ML 04/11/21 Tramadol Hcl (TRAMADOL HCL) 50 Mg Tablet, 50 MG PO PRN Q8HRS PRN for PAIN, TAB 04/11/21 Albuterol Sulfate (ALBUTEROL SULFATE CONC NEB SOLN) 2.5 Mg/0.5 Ml Vial.neb, 1 VIAL NEB PRN Q4-6HRS PRN for SHORTNESS OF BREATH, #120 VIAL 5 Refills 04/11/21 Metoprolol Tartrate (METOPROLOL TARTRATE) 50 Mg Tablet, 1 TAB PO BIDWMEALS for HTN, #60 TAB 5 Refills 04/11/21 Atorvastatin Calcium (LIPITOR) 80 Mg Tablet, 80 MG PO HS for FOR CHOLESTEROL, #30 TAB 0 Refills 04/11/21 Ezetimibe (ZETIA) 10 Mg Tablet, 1 TAB PO DAILY for HLD for 30 Days, #30 TAB 0 Refills 04/11/21 Isosorbide Mononitrate (ISOSORBIDE MONONITRATE ER) 60 Mg Tab.er.24h, 1 TAB PO DAILY for HTN, #30 TAB 5 Refills 04/11/21 Ranolazine (RANEXA) 500 Mg Tab.er.12h, 1 TAB PO BIDWMEALS for angina for 30 Days, #60 TAB 0 Refills 04/11/21 Metformin Hcl (METFORMIN HCL) 500 Mg Tablet, 500 MG PO QPM for ANTI-DIABETIC, TAB 0 Refills 04/11/21 Aspirin (ASPIRIN) 81 Mg Tab.chew, 1 TAB PO DAILY for heart health, #30 TAB 3 Refills 04/11/21 Rivaroxaban (XARELTO) 20 Mg Tablet, 1 TAB PO DAILY for blood thinner for 30 Days, #30 TAB 0 Refills with food 07/18/20 Discontinued Reported Medications Hydroxyzine Hcl (HYDROXYZINE HCL) 25 Mg Tablet, 25 MG PO HS for Anxiety, TAB 04/11/21 Spironolactone (SPIRONOLACTONE) 25 Mg Tablet, 1 TAB PO DAILY for HTN, #90 TAB 1 Refill 04/11/21 Scheduled Aspirin (Aspirin), 1 TAB PO DAILY, (Reported) Atorvastatin Calcium (Lipitor), 80 MG PO HS, (Reported) Clopidogrel Bisulfate (Clopidogrel), 1 TAB PO DAILY, (Reported) Ezetimibe (Zetia), 1 TAB PO DAILY, (Reported) Isosorbide Mononitrate (Isosorbide Mononitrate Er), 1 TAB PO DAILY, (Reported) Metformin Hcl (Metformin Hcl), 500 MG PO QPM, (Reported) Metoprolol Tartrate (Metoprolol Tartrate), 1 TAB PO BIDWMEALS, (Reported) Pantoprazole Sodium (Pantoprazole Sodium ), 40 MG PO DAILYAC Ranolazine (Ranexa), 1 TAB PO BIDWMEALS, (Reported) Rivaroxaban (Xarelto), 1 TAB PO DAILY, (Reported) Scheduled PRN Albuterol Sulfate (Albuterol Sulfate Conc Neb Soln), 1 VIAL NEB PRN Q4-6HRS PRN for SHORTNESS OF BREATH, (Reported) Cyclobenzaprine Hcl (Cyclobenzaprine Hcl), 10 MG PO PRN Q6HRS PRN for MUSCLE SPASMS Nitroglycerin (Nitrostat), 0.4 MG SL PRN Q5MIN PRN for CHEST PAIN, (Reported) Tramadol Hcl (Tramadol Hcl), 50 MG PO PRN Q8HRS PRN for PAIN, (Reported) Discontinued Medications Hydroxyzine Hcl (Hydroxyzine Hcl), 25 MG PO HS, (Reported) Spironolactone (Spironolactone), 1 TAB PO DAILY, (Reported) Justicifation of Admission Dx: Justifications for Admission: Justification of Admission Dx: Yes IN: Acute STEMI PHANI CHAPPELL MD Jun 27, 2021 12:20
--- NOTE | 2021-06-27 13:39 | NUR ---
Pt left unit at 1335 by ambulation via private vehicle. Pt's IV removed without complications, VSS. Discharge paperwork discussed and sent with pt.
== END 2021-06-27 13:43 | disposition home or self-care (01) ==
LOC: ER 12:49 → ED HOLD 14:20 → 5 SOUTH 15:27
PROVIDERS: ADMIT Internal Medicine; ATTEND Internal Medicine
DX: R07.2 Precordial pain (principal); Z20.822 Contact with and (suspected) exposure to COVID-19; I25.10 Atherosclerotic heart disease of native coronary artery without angina pectoris; E78.00 Pure hypercholesterolemia, unspecified; I10 Essential (primary) hypertension; I25.2 Old myocardial infarction; E78.5 Hyperlipidemia, unspecified; E66.01 Morbid (severe) obesity due to excess calories; E11.9 Type 2 diabetes mellitus without complications; Z79.01 Long term (current) use of anticoagulants; Z79.02 Long term (current) use of antithrombotics/antiplatelets; Z79.82 Long term (current) use of aspirin; Z82.49 Family history of ischemic heart disease and other diseases of the circulatory system; Z86.16 Personal history of COVID-19; Z95.5 Presence of coronary angioplasty implant and graft; Z87.891 Personal history of nicotine dependence
CPT/HCPCS: 36415; 71045; 71275; 80048; 80053; 82962; 83036; 83690; 83735; 83880; 84100; 84484; 85025; 87426; 93005; 96360; 96361; 96372; 99285; G0378; J1650; J1815; J7030; Q9967; U0003; U0005; G0379